=== PATIENT | female | born 1970 | race Caucasian/White ===

== ENCOUNTER → 2017-08-20 11:48 | Outpatient (CLI) | payer BC, SELFPAY ==
--- NOTE | 2017-08-20 | XR_ITS ---
XR knee LT 3V COMPARISON: None HISTORY: Left knee pain TECHNIQUE: AP lateral and oblique views FINDINGS: The medial lateral joint space appear normal. There is very minor spurring of the medial femoral condyle and medial tibial plateau. There is mild narrowing of the patellofemoral space. There is no definite fracture or loose body and is no definite effusion. IMPRESSION: Minor degenerative changes, no acute pathology noted
== END ==
PROVIDERS: PCP Internal Medicine Adolescent Medicine; Visit Provider Internal Medicine Adolescent Medicine
DX: M25.562 Pain in left knee (principal)
CPT/HCPCS: 73562

== ENCOUNTER 2017-09-13 16:43 | Outpatient (RCR) | payer BC, SELFPAY | END 2017-09-13 16:44 | disposition home or self-care (01) | LOC: PT 16:43 | PROVIDERS: Family Provider Internal Medicine; PCP Internal Medicine Adolescent Medicine; Visit Provider Orthopaedic Surgery | DX: M25.562 Pain in left knee (principal) | CPT/HCPCS: 97163 ==

== ENCOUNTER → 2019-01-28 15:13 | Outpatient (CLI) | payer BC, SELFPAY | PROVIDERS: PCP Nurse Practitioner Family; Visit Provider Nurse Practitioner Family | DX: G47.33 Obstructive sleep apnea (adult) (pediatric) (principal); R40.0 Somnolence; E11.9 Type 2 diabetes mellitus without complications | CPT/HCPCS: 95806 ==

== ENCOUNTER 2019-08-05 17:17 | Emergency (ER) | payer BC, SELFPAY ==
[2019-08-05 17:17] VITALS: BP 121/78; PULSE 81; RESP 24; TEMP 36.7; O2SAT 94; BMI 62.1
--- NOTE | 2019-08-05 17:29 | XR_ITS ---
PROCEDURE: XR CHEST 2V CLINICAL HISTORY: SOB COMPARISON: CXR1 CHEST-PORTABLE from 05/16/2013 FINDINGS: Borderline cardiomegaly without failure. Lungs are clear bilaterally. The lungs are clear without infiltrates, suspicious nodules, or pleural effusions. Hypertrophic changes are present at the distal clavicle on both sides with spurring superiorly. Degenerative changes thoracic spine IMPRESSION: Mild cardiomegaly Dictated by: Zane Blandon MD 08/05/2019 17:53 Electronically signed by Zane Blandon MD in [place] 08/05/2019 17:53
--- NOTE | 2019-08-05 18:17 | HMH.EDUTC ---
[facility] [place] Disposition Clinical Impression: Acute bronchitis Qualifiers: Bronchitis organism: unspecified organism Qualified Code(s): J20.9 - Acute bronchitis, unspecified Disposition: Home, Self-Care Condition on Discharge: Good Instructions: Acute Bronchitis, Cough, DI for Cough -- Adult, DI for Acute Bronchitis, Albuterol Oral Inhalation Additional Instructions: ? Start antibiotic today. Be sure to complete entire prescription even if feeling better ? Monitor temp. Tylenol every 4 hours as needed and / or ibuprofen every 6 hours as needed ( As long as your primary care physician has told you that it ok to take both. For fever/aches/pains ER if no less than 101 despite Tylenol or Motrin ? Humidifier/vaporizer or hot steamy shower ? Inhaler every 4-6 hours as needed like we discussed. If unsure how to use it, ask pharmacist to demonstrate how. Should help open airways and improve cough, wheezing, and shortness of breath ?Start steroid Tomorrow. Helps with inflammation therefore, cough and wheezing. Follow directions on the package. Reviewed side effects. Patient reports taking them before. You was tested for COVID19 today due to your symptoms, stay self quarantined as advised until they call you with your results and they are negative You was given a card with COVID19 instructions please follow them as advised Follow up IMMEDIATELY for new or worsening of symptoms OR no noticeable improvement over the next 48-72 hours. 911 immediately for any life threatening symptoms such as chest pain or difficulty breathing Prescriptions: predniSONE [Deltasone 10mg tablet] 10 mg PO BID 5 Days #10 tab Transmission Status: Received by [id number] Azithromycin [Z-West 250mg Tab] 250 mg PO DIRECTED #6 tab Transmission Status: Received by [id number] Referrals: Opal Michel APRN [Primary Care Provider] - As needed Time of Disposition: 18:30 Medical Decision Making - Wilfrid Inquiry Pt receiving controlled substance: No Wilfrid was queried for this patient: No Vital Signs: 08/05/19 17:17 08/05/19 18:25 Temperature 98.1 F Temperature Source Oral Pulse Rate [Radial] 81 Respiratory Rate 24 Blood Pressure [Right Arm] 121/78 Blood Pressure Mean [Right Arm] 92 Blood Pressure Source [Right Arm] Automatic Cuff Blood Pressure Position [Right Arm] Sitting 02 Sat by Pulse Oximetry 94 L 98 Oxygen Delivery Method Room Air Room Air Orders (Tests/Meds): ED MEDICATIONS Discontinued Medications Generic Name Dose Route Start Last Admin Trade Name Soha PRN Reason Stop Dose Admin Albuterol Sulfate 2 puffs 08/05/19 18:31 08/05/19 18:33 Proventil-Hfa 90mcg/Puff Inhaler IH 08/05/19 18:32 1 device ONCE ONE Administration Methylprednisolone Sodium Succinate 125 mg 08/05/19 18:21 08/05/19 18:26 Solu-Medrol 125mg/2ml Vial IM 08/05/19 18:22 125 mg ONCE ONE Administration Miscellaneous 1 unit 08/05/19 18:30 08/05/19 18:32 Aerochamber/Optihaler MC 08/05/19 18:31 1 unit ONCE ONE Administration ORDERS Category Date Time Status SARS-CoV-2, LAURA Stat Lab 08/05/19 18:32 Received - Radiology Data #1 Image(s): Chest Image Reviewed: Yes I have reviewed radiologist's interpretation Mild cardiomegaly - Reevaluation(s) Time: 18:00 Reevaluation #1: Discussed transfer to ED for further evaluation and work up and patient declined at this time Time: 18:46 Reevaluation #3: Patient states that she is feeling much better and no longer feeling short of breath patient tested for COVID19 due to complaints of similar symptoms and will follow up with PCP or return to ER if any life threatening symptoms [facility] [place] HPI - General Stated complaint: SOB.VOGEL Time Seen by Provider: 08/05/19 17:20 Mode of Arrival: Ambulatory Source of Information: Patient Limitations: No Limitations Description of Symptoms (Recalled from Triage Doc. by RN): can't catch her breath, everything hurts, tired H
[2019-08-05 18:25] VITALS: O2SAT 98
[2019-08-05 18:51] VITALS: BP 121/78; PULSE 81; RESP 24; TEMP 36.7; O2SAT 98
[2019-08-07 14:13] LABS: Covid-19 Nasal PCR Sendout Lex NOT DETECTED
--- NOTE | 2019-08-07 14:36 | PC.NURSE ---
notified pt and Radha NEALN of negative COVID 19 results.
== END 2019-08-05 18:53 | disposition home or self-care (01) ==
PROVIDERS: Emergency Provider Nurse Practitioner; PCP Nurse Practitioner Family
DX: J20.9 Acute bronchitis, unspecified (principal); J45.909 Unspecified asthma, uncomplicated; F41.8 Other specified anxiety disorders; I10 Essential (primary) hypertension; Z90.09 Acquired absence of other part of head and neck
CPT/HCPCS: 71046; 96372; 99202; U0004

== ENCOUNTER 2019-08-23 14:51 | Emergency (ER) | payer BC, SELFPAY ==
[2019-08-23 14:53] VITALS: BP 112/78; PULSE 78; RESP 19; TEMP 36.8; O2SAT 99; BMI 41.3
--- NOTE | 2019-08-23 15:11 | XR_ITS ---
PROCEDURE: XR HAND LT MIN 3V CLINICAL INDICATION: INJURED HAND WHILE MOVING A COUCH Posttraumatic pain COMPARISON: No exams were available for comparison FINDINGS: Metallic artifact is present over the proximal phalanx of the 4th finger consistent with the patient's rings which could not be removed. There are hypertrophic changes at the base of the 1st metacarpal and there is an extra bony density medial to the base of the 1st metacarpal. This may only be related to bony spurring. Cannot exclude the possibility of an avulsion fracture at this area. CT may provide further evaluation if clinical findings are indeterminate. There is mild lateral subluxation at the base of the 1st metacarpal. No other significant anomalies are evident. IMPRESSION: Degenerative changes at the base of the 1st metacarpal with extra bony density medial to the 1st metacarpal which may be related to a prominent spur or an avulsion fracture. This may be better evaluated with CT if clinical findings point to this region. There is mild lateral subluxation of the 1st metacarpal. Dictated by: Zane Blandon MD 08/23/2019 16:09 Electronically signed by Zane Blandon MD in [place] 08/23/2019 16:09
--- NOTE | 2019-08-23 15:42 | HMH.EDUTC ---
[facility] [place] Disposition Clinical Impression: Sinusitis Qualifiers: Sinusitis location: unspecified location Chronicity: unspecified Qualified Code(s): J32.9 - Chronic sinusitis, unspecified Hand sprain Qualifiers: Encounter type: initial encounter Laterality: left Qualified Code(s): S63.92XA - Sprain of unspecified part of left wrist and hand, initial encounter Disposition: Home, Self-Care Condition on Discharge: Good Instructions: Sprain, Sinusitis, Sinus Headache, DI for Sinusitis, How To Perform RICE (Rest, Ice, Compress, Elevate), DI for Hand Pain Additional Instructions: *Monitor Temp, Over the counter Motrin or Tylenol as directed/as needed Tylenol every 4 hours and Motrin every 6 hours (as long as your family doctor has told you that you can take it) for fever or pain. and straight to ER if unable to lower temp less than 101.0 after medication given *Warm salt water gargles may help to soothe the throat *Throat Lozenges *Warm fluids *Sleep elevated *Humidifier/Vaporizer Start antibiotic. Sinus infections may take 2-3 days to notice much improvement so be sure to use conservative measures as discussed for symptoms Ok to continue Sudafed Humidifer/vaporizer Augmentin can cause GI effects. Probiotics may help to prevent these symptoms Follow up with family doctor if no improvement or any worsening of symptoms Follow up IMMEDIATELY for new or worsening symptoms or no Noticeable improvement over the next 48-72 hours. 911 for difficulty breathing or swallowing Prescriptions: Amoxicillin/Potassium Clav [Augmentin 875-125 Tablet] 1 tab PO Q12H 7 Days #14 tab Transmission Status: Received by [id number] predniSONE [Prednisone 20mg Tab] 20 mg PO BID 5 Days #10 tab Transmission Status: Received by [id number] Referrals: Robert Cain MD [Primary Care Provider] - As needed Time of Disposition: 15:48 Medical Decision Making - Wilfrid Inquiry Pt receiving controlled substance: No Wilfrid was queried for this patient: No Vital Signs: 08/23/19 14:53 08/23/19 15:57 Temperature 98.2 F 98.2 F Temperature Source Oral Oral Pulse Rate 78 Pulse Rate [Radial] 78 Respiratory Rate 19 19 Blood Pressure 112/78 Blood Pressure [Right Arm] 112/78 Blood Pressure Mean [Right Arm] 89 Blood Pressure Source Automatic Cuff Blood Pressure Source [Right Arm] Automatic Cuff Blood Pressure Position Sitting Blood Pressure Position [Right Arm] Sitting 02 Sat by Pulse Oximetry 99 Oxygen Delivery Method Room Air Room Air - Radiology Data #1 Image(s): Hand Image Reviewed: Yes I reviewed the patient's radiology image Preliminary Findings: No Fracture Seen [facility] [place] HPI - General Stated complaint: hand bron Time Seen by Provider: 08/23/19 15:42 Mode of Arrival: Ambulatory Source of Information: Patient Limitations: No Limitations Description of Symptoms (Recalled from Triage Doc. by RN): GETS DIZZY WHEN SHE COUGHS HARD, HEADACHE, CHEST SORENESS FROM COUGHING, SHOTNESS OF AIR, THINKS SHE BROKE HER LEFT HAND HEENT Symptoms (Recalled from RN notes): Yes Resp Symptoms (Recalled from RN notes): Yes Skin Symptoms (Recalled from RN notes): No MS Symptoms (Recalled from RN notes): No Functional Status (Recalled from RN notes): WNL - History of Present Illness Provider Complaint: Patient state that she is having sinus pain and pressure along with drainge in the back of her throat States that it is worse when she lays down and it makes her cough States that she coughed so much it made her throat irritated and when she has a coughing fit she feels SOB States that she has been using her inhaler and it does help with the coughing States that her sinuses feels full and causing sinus pressure and headache States that also she thinks she broke her left hand while moving furniture State that she felt something pop - Related Data Home Medications Medication Instructions Recorded Confirmed furosemide 40 mg tablet P
[2019-08-23 15:57] VITALS: BP 112/78; PULSE 78; RESP 19; TEMP 36.8; O2SAT 99
== END 2019-08-23 16:06 | disposition home or self-care (01) ==
PROVIDERS: Emergency Provider Nurse Practitioner; PCP Internal Medicine Adolescent Medicine
DX: J32.9 Chronic sinusitis, unspecified (principal); S63.92XA Sprain of unspecified part of left wrist and hand, initial encounter; X50.0XXA Overexertion from strenuous movement or load, initial encounter; Y92.019 Unspecified place in single-family (private) house as the place of occurrence of the external cause; F41.8 Other specified anxiety disorders; E03.9 Hypothyroidism, unspecified; I10 Essential (primary) hypertension; Z90.49 Acquired absence of other specified parts of digestive tract; J45.909 Unspecified asthma, uncomplicated; Z90.09 Acquired absence of other part of head and neck
CPT/HCPCS: 29125; 73130; 99202

== ENCOUNTER 2019-10-26 12:58 | Emergency (ER) | payer BC, SELFPAY ==
[2019-10-26 13:14] VITALS: BP 129/92; PULSE 112; RESP 19; TEMP 36.8; O2SAT 99; BMI 62.8
--- NOTE | 2019-10-26 13:21 | HMH.EDUTC ---
[facility] [place] Disposition Clinical Impression: Otitis media Qualifiers: Otitis media type: suppurative Chronicity: acute Laterality: left Recurrence: non-recurrent Spontaneous tympanic membrane rupture: without spontaneous rupture Qualified Code(s): H66.002 - Acute suppurative otitis media without spontaneous rupture of ear drum, left ear Disposition: Home, Self-Care Condition on Discharge: Good Instructions: Middle Ear Infection Additional Instructions: Start antibiotic as soon as possible and be sure to take as ordered for full length of time even though he should start feeling better in 24-48 hours. Tylenol or Motrin as needed for pain or fever Encourage fluids, water, Gatorade, Powerade, Pedialyte if /toddler/child Warm compresses often helps when placed over ear Return immediately for new or worsening symptoms no noticeable improvement in 48-72 hours and in 10-14 days to ensure the ears are return to baseline. Follow-up with primary care Prescriptions: predniSONE [Prednisone 20mg Tab] 20 mg PO BID #10 tab Prescription Printed Referrals: Opal Michel APRN [Primary Care Provider] - Time of Disposition: 13:39 Medical Decision Making - Wilfrid Inquiry Pt receiving controlled substance: No Vital Signs: 10/26/19 13:14 Temperature 98.2 F Temperature Source Oral Pulse Rate [Right Brachial] 112 H Respiratory Rate 19 Blood Pressure [Right Arm] 129/92 H Blood Pressure Mean [Right Arm] 104 Blood Pressure Source [Right Arm] Automatic Cuff Blood Pressure Position [Right Arm] Sitting 02 Sat by Pulse Oximetry 99 Oxygen Delivery Method Room Air [facility] [place] HPI - General Chief complaint: Ear Stated complaint: ear pain, and dizzy Time Seen by Provider: 10/26/19 13:21 Mode of Arrival: Ambulatory Source of Information: Patient Limitations: No Limitations Description of Symptoms (Recalled from Triage Doc. by RN): PATIENT STATES SHE HAS A POSSIBLE SINUS OR EAR INFECTION, C/O DIZZINESS UPON STANDING X 2 DAYS HEENT Symptoms (Recalled from RN notes): Yes Resp Symptoms (Recalled from RN notes): No Skin Symptoms (Recalled from RN notes): No MS Symptoms (Recalled from RN notes): No Functional Status (Recalled from RN notes): WNL - History of Present Illness Provider Complaint: 48 yr old female presnets for luis eduardo ear pain with fullness and dizzy. pt states the last time she had this she had a inter ear infection - Related Data Home Medications Medication Instructions Recorded Confirmed furosemide 40 mg tablet PO 90 Days #90 06/05/17 03/24/19 gabapentin 300 mg capsule PO 30 Days #90 06/05/17 03/24/19 ropinirole 0.5 mg tablet PO 90 Days #90 06/05/17 03/24/19 tizanidine 4 mg capsule 4 mg PO Q8H 06/05/17 03/24/19 diclofenac sodium 75 mg 75 mg PO BID 10/01/17 03/24/19 tablet,delayed release bisoprolol 5 2 tab PO DAILY tab 03/24/19 03/24/19 mg-hydrochlorothiazide 6.25 mg tablet bupropion HCl 300 mg 24 hr tablet, 300 mg PO DAILY tab 03/24/19 03/24/19 extended release duloxetine 60 mg capsule,delayed 60 mg PO DAILY cap 03/24/19 03/24/19 release levothyroxine 50 mcg tablet 50 mcg PO DAILY tab 03/24/19 03/24/19 Previous Rx's Medication Instructions Recorded Albuterol Sulfate [Albuterol HFA 2 puffs IH Q6HP PRN #1 inh 06/27/17 Inhaler] Azithromycin [Zithromax 250mg 250 mg PO DIRECTED #6 tab 03/29/19 tab] predniSONE [Prednisone 20mg 20 mg PO BID #10 tab 03/29/19 Tab] Azithromycin [Z-West 250mg Tab] 250 mg PO DIRECTED #6 tab 08/05/19 predniSONE [Deltasone 10mg tablet] 10 mg PO BID 5 Days #10 tab 08/05/19 Amoxicillin/Potassium Clav 1 tab PO Q12H 7 Days #14 tab 08/23/19 [Augmentin 875-125 Tablet] predniSONE [Prednisone 20mg 20 mg PO BID 5 Days #10 tab 08/23/19 Tab] predniSONE [Prednisone 20mg 20 mg PO BID #10 tab 10/26/19 Tab] Allergies Allergy/AdvReac Type Severity Reaction Status Date / Time No Known Allergies Allergy Verified 03/24/19 15:36
[2019-10-26 13:46] VITALS: BP 129/92; PULSE 112; RESP 19; TEMP 36.8; O2SAT 99
== END 2019-10-26 13:47 | disposition home or self-care (01) ==
PROVIDERS: Emergency Provider Nurse Practitioner Family; PCP Nurse Practitioner Family
DX: H66.002 Acute suppurative otitis media without spontaneous rupture of ear drum, left ear (principal); F41.8 Other specified anxiety disorders; I10 Essential (primary) hypertension; J45.909 Unspecified asthma, uncomplicated; Z90.09 Acquired absence of other part of head and neck; Z90.49 Acquired absence of other specified parts of digestive tract
CPT/HCPCS: 99201

== ENCOUNTER 2019-12-06 16:33 | Emergency (ER) | payer BC, SELFPAY ==
[2019-12-06 16:34] VITALS: BP 136/86; PULSE 105; RESP 18; TEMP 36.6; O2SAT 98; BMI 62.9
--- NOTE | 2019-12-06 16:42 | PC.NURSE ---
PATIENT HERE TO BE SEEN POST-FALL WITH DIZZINESS AND LIGHT-HEADEDNESS. STATES SHE BLACKED OUT BEFORE FALLING AND DOESN'T REMEMBER WHAT HAPENED. PATIENT WENT TO STAND FROM WHEELCHAIR IN [facility] WAITING ROOM AND ALMOST FELL X2 AFTER BECOMING LIGHT-HEADED AND DIZZY. GIGI CARRASCO APRN SPOKE WITH PATIENT AND HER AT THIS TIME AND SENT HER TO ER. UNABLE TO COMPLETE TRIAGE. REPORT GIVEN TO Shawn MALDONADO RN
--- NOTE | 2019-12-06 17:02 | CT_ITS ---
PROCEDURE: CT CERVICAL SPINE WO CON Referring Doctor: Elvis Amaro Patient Age:48Y CLINICAL INDICATION: fall/LOC Neck pain COMPARISON: CR CXR1 CHEST-PORTABLE from 05/16/2013 CR XR CHEST 2V from 08/05/2019 CR XR CHEST PORTABLE from 12/06/2019 TECHNIQUE: . No IV contrast Helical axial images obtained from base of skull through C-spine and continuing to level of T5 axial. Of from the thin-section raw data-axial, sagittal and coronal reformats performed. All CT scans at the facility use one or more dose reduction, viz: automated exposure control, ma/kV adjustment per patient size (including targeted exams where dose is matched to indication, i.e. head), or iterative reconstruction technique. FINDINGS: Patient's large size somewhat decreases resolution and detail on this study; but no acute fracture nor subluxation is evident.. The nonspecific straightening of the cervical spine seen today most likely reflects positioning, although can be seen as reflection of pain, and muscle spasm related to recent trauma.. Vertebral bodies are intact and disc spaces well maintained throughout C-spine and visualized upper most T-spine. Mild degenerative facet changes bilaterally. Most evident on the left at C4/5 and C7/T1 with minimal degenerative facet changes on right at the mid C-spine. Neural foramen patent at all levels with no significant encroachment. C1-C2 relationships appear normal. A Don toilet intact. The patient's carotid arteries have a rather posterior/medial course passing towards the prevertebral space at the level the hyoid and accounting for the slightly generous prevertebral space in this patient. No edema or pathology here otherwise. A prominent parotid glands bilaterally noted.. Mild relative fullness inferior right thyroid gland noted with possible small nodule here. The patient is quite large with generous adipose the of throughout the neck and extending to the superior mediastinum. Minimal low-density ground-glass opacities visualized upper portion lung fuller bilaterally noted on CT but not apparent on today's portable CXR. I suspect this CT appearance may be reflection of atelectasis and hypoinflation. However there are respiratory symptoms of consider follow-up studies with more optimal inspiration. IMPRESSION: 1.Cervical Spine Intact With No Fracture Nor Subluxation. 2.Mild degenerative facet changes C-spine. Nonspecific straightening C-spine likely positional although can be reflect muscle spasm from recent injury. 3..Other observations and comments in text: . Low-density ground-glass opacities at the partially visualized upper lung fuller most likely reflection of hypoinflation and atelectasis on this study; however if there are respiratory symptoms a follow-up suggested. (Today's portable CXR appears stable) . The patient's large size does diminish resolution on today's CT cervical spine Dictated by: Kaz Irene MD 12/06/2019 18:02 Kaz Irene MD in [place] 12/06/2019 18:02
--- NOTE | 2019-12-06 17:02 | ECG_ITS ---
APPROVED REPORT Exam: Resting ECG HR:104 bpm ECG Measurements Heart Rate 104 AXES SC 136 P 52 QRSd 86 QRS 17 QT 332 T 11 QTc 436 <Conclusion> Sinus tachycardia Possible Left atrial enlargement Borderline ECG Electronically signed by : Robert Cain, 12/07/2019 14:59:08
--- NOTE | 2019-12-06 17:02 | CT_ITS ---
PROCEDURE: CT HEAD/BRAIN WO CON Referring Doctor: Elvis Amaro Patient Age:48Y CLINICAL INDICATION: fall/LOC hit head head trauma. Head pain. COMPARISON: CR XR CHEST 2V from 08/05/2019 CR XR CHEST PORTABLE from 12/06/[address] CERVICAL SPINE WO CON from 12/06/2019 TECHNIQUE: No IV contrast. Standard axial images were obtained. All CT scans at the facility use one or more dose reduction, viz: automated exposure control, ma/kV adjustment per patient size (including targeted exams where dose is matched to indication, i.e. head), or iterative reconstruction technique. FINDINGS: No acute intracranial findings. No intracranial hemorrhage. No hydrocephalus.The ventricles and basal cisterns appear clear and satisfactory. No mass or midline shift nor mass effect. No subdural or extra-axial fluid collection is evident. Posterior fossa unremarkable. Skull intact- calvarium unremarkable appearance.. No obvious scalp hematoma Nomastoid effusions. Mastoid air cells are well developed and clear.Middle ear clear. IAC's symmetric. Nosinus air-fluid level. Visualized portions of the paranasal sinuses unremarkable . More generous right lacrimal gland incidentally noted-nonspecific. IMPRESSION: NO ACUTE INTRACRANIAL FINDINGS . Skull intact . Slight generous right lacrimal gland incidentally noted-Nonspecific Dictated by: Kaz Irene MD 12/06/2019 17:45 Kaz Irene MD in [place] 12/06/2019 17:45
--- NOTE | 2019-12-06 17:02 | XR_ITS ---
PROCEDURE: XR CHEST PORTABLE Referring Doctor: Elvis Amaro Patient Age:48Y CLINICAL HISTORY: LOC Fall head and neck injury. COMPARISON: CR CXR1 CHEST-PORTABLE from 05/16/2013 CR XR CHEST 2V from 08/05/2019 FINDINGS: AP portable supine CXR with quite lordotic projection performed today. No significant change when compared to July 2019 CXR. The lungs appear clear with mild chronic changes. Small stable 5 mm granuloma at left mid lung unchanged since 2013 t. Borderline cardiomegaly similar to previous study. With normal pulmonary vascularity. Gala and mediastinal structures unchanged. No pleural effusion or pneumothorax. No obvious rib fractures. No acute bony abnormalities. Large patient size diminishes resolution of image .. IMPRESSION: Nothing definitely acute. Stable chest since 2013, 2019 comparison studies. Borderline/mild cardiomegaly again observed Dictated by: Kaz Irene MD 12/06/2019 19:00 Kaz Irene MD in [place] 12/06/2019 19:00
--- NOTE | 2019-12-06 17:03 | XR_ITS ---
PROCEDURE: XR KNEE LT 3V Referring Doctor: Elvis Amaro Patient Age:48Y CLINICAL INDICATION: fall/pain Left knee pain COMPARISON: CR [id number] XR knee LT 3V from 08/20/2017 FINDINGS: Left knee 3 view nonweightbearing. AP lateral oblique Degenerative changes with progressive and notable narrowing at the medial compartment since 2018 on today's nonweightbearing film. No definitive acute fracture or dislocation. Although initially question some slight irregularities at the medial margin tibial plateau and marginal osteophyte here but on further inspection is most likely intact.. Mild to moderate tricompartmental marginal osteophytes about the knee the reflecting degenerative changes have progressed since 2018.. Suspect some early joint space narrowing at patellofemoral joint as well. Also suspect a small/moderate joint effusion suprapatellar bursa-. No lytic or blastic change. Adequate mineralization. . . IMPRESSION: Progressive degenerative changes of the left knee since 2018. No acute fracture or dislocation at the left knee. Small/moderate joint effusion suspect Dictated by: Kaz Irene MD 12/06/2019 18:40 Kaz Irene MD in [place] 12/06/2019 18:40
--- NOTE | 2019-12-06 17:03 | XR_ITS ---
PROCEDURE: XR ELBOW LT MIN 3V CLINICAL INDICATION: fall/pain COMPARISON: No exams were available for comparison FINDINGS: There is a small triangular-shaped chip fracture of the ulnar side of the olecranon. The radial head appears intact. Distal humerus and supracondylar humerus appear intact. There is a focal area of soft tissue contusion lateral aspect of the distal arm lateral to the lateral humeral condyle. There are no foreign bodies. IMPRESSION: Chip fracture of the olecranon ulnar side Dictated by: Dr. Silvestre Clement MD 12/07/2019 08:06 Dr. Silvestre Clement MD in [place] 12/07/2019 08:06
--- NOTE | 2019-12-06 17:04 | HMH.EDGENADL ---
ED Disposition Clinical Impression: Syncope and collapse, Dehydration Disposition: Home, Self-Care Condition on Discharge: Fair Prescriptions: Cyclobenzaprine HCl [Cyclobenzaprine 5mg Tab] 5 mg PO Q8HP PRN #30 tab PRN Reason: pain/spasm Transmission Status: Pending to [id number] Referrals: Opal Michel APRN [Primary Care Provider] - - Critical Care Critical Care Time: No Attestation: On 12/06/19, the high probability of a clinically significant, sudden or life threatening deterioration of the following system(s) required my full and direct attention, intervention and personal management. The time I documented below is in addition to time spent performing reported procedures but includes the following listed in this critical care notation. Medical Decision Making - Wilfrid Inquiry Pt receiving controlled substance: No Vital Signs: 12/06/19 16:34 12/06/19 18:14 Temperature 98 F Temperature Source Oral Pulse Rate [Left Radial] 105 H 99 H Respiratory Rate 18 18 Blood Pressure [Right Arm] 136/86 122/85 Blood Pressure Mean [Right Arm] 102 97 Blood Pressure Source [Right Arm] Automatic Cuff Blood Pressure Position [Right Arm] Sitting Supine 02 Sat by Pulse Oximetry 98 100 Oxygen Delivery Method Room Air Room Air - Lab Data Lab Results 12/06/19 17:05: WBC 20.8 H*, RBC 4.54, Hgb 14.7, Hct 42.7, MCV 94.0, MCH 32.3 H, MCHC 34.4, RDW 14.6, Plt Count 302, MPV 8.6, Neut % (Auto) 69.6, Lymph % (Auto) 25.2, [place] % (Auto) 3.9, Eos % (Auto) 0.9, Baso % (Auto) 0.4, Neut # (Auto) 14.5 H, Lymph # (Auto) 5.2 H, [place] # (Auto) 0.8, Eos # (Auto) 0.2, Baso # (Auto) 0.1, Total Counted 100, Neutrophils % (Manual) 72, Lymphocytes % (Manual) 24, Monocytes % (Manual) 3, Eosinophils % (Manual) 1, Platelet Estimate Normal, RBC Morphology Normal 12/06/19 17:05: Sodium 132 L, Potassium 3.6, Chloride 93 L, Carbon Dioxide 28, Anion Gap 14.6, BUN 57 H, Creatinine 1.90 H, Estimated Creat Clear 34, Estimated GFR 28 L, Est GFR ( Amer) 34 L, Glucose 224 H, Calcium 9.6, Total Bilirubin 0.6, AST 44 H, ALT 65, Alkaline Phosphatase 132 H, Troponin I 0.05 H, NT-Pro-B Natriuret Pep 581 H, Total Protein 6.6, Albumin 3.7, Globulin 2.9, Albumin/Globulin Ratio 1.3 Result diagrams: 12/06/19 17:05 12/06/19 17:05 Orders (Tests/Meds): ED MEDICATIONS Generic Name Dose Route Start Last Admin Trade Name Freq PRN Reason Stop Dose Admin Sodium Chloride 1,000 mls @ 999 mls/hr 12/06/19 18:00 12/06/19 17:55 Sod Chlor 0.9% 1000ml Bag IV 12/06/19 19:00 999 mls/hr .Q1H1M ELKIN Administration Discontinued Medications Generic Name Dose Route Start Last Admin Trade Name Freq PRN Reason Stop Dose Admin Ketorolac Tromethamine 30 mg 12/06/19 17:44 12/06/19 17:55 Toradol 30mg/Ml Vial IV 12/06/19 17:45 30 mg ONCE ONE Administration Orphenadrine Citrate 60 mg 12/06/19 17:44 12/06/19 17:55 Norflex 60mg/2ml Vial IV 12/06/19 17:45 60 mg ONCE ONE Administration ORDERS Category Date Time Status Elbow XR left mininum 3 views [XR elbow LT min 3V] Stat Exams 12/06/19 17:03 Taken XR chest portable Stat Exams 12/06/19 17:02 Taken XR knee LT 3V Stat Exams 12/06/19 17:03 Taken Troponin I Q3H Lab 12/06/19 20:15 Ordered Troponin I Q3H Lab 12/06/19 23:15 Ordered - Radiology Data #1 Image(s): Chest Image Reviewed: Yes I reviewed the patient's radiology image Preliminary Findings: Normal/NAD #2 Image(s): Elbow Image Reviewed: Yes I reviewed the patient's radiology image Preliminary Findings: Normal/NAD #3 Image(s): Knee Image Reviewed: Yes I reviewed the patient's radiology image Preliminary Findings: Normal/NAD - CT Data CT Scan: Head, C-Spine Time Received: 16:[address] Reviewed: Yes: I have reviewed the patient's CT results, I have viewed the radiologist's interpretation Preliminary Findings: Normal/NAD - ECG Data Tracing #1 Normal Sinus Rhythm: No (HR 104bpm) Ar
[2019-12-06 17:20] LABS: Basophils # 0.1 K/mm3 (0-0.2); Basophils % 0.4 % (0.1-2.0); Eosinophils # 0.2 K/mm3 (0.0-0.4); Eosinophils % 0.9 % (0.1-12.0); Hematocrit 42.7 % (37.0-47.0); Hemoglobin 14.7 g/dL (12.2-16.2); Lymphocytes # 5.2 K/mm3 (0.7-4.5); Lymphocytes % 25.2 % (10-50); Mean Corpuscular HGB Conc 34.4 g/dL (31.8-35.4); Mean Corpuscular Hemoglobin 32.3 pg (27.0-31.2); Mean Platelet Volume 8.6 fl (7.4-10.4); Monocytes # 0.8 K/mm3 (0.1-1.0); Monocytes % 3.9 % (1.7-9.3); Neutrophils # 14.5 K/mm3 (1.8-7.8); Neutrophils % 69.6 % (37.0-80.0); Platelet Count 302 K/mm3 (142-424); Red Blood Count 4.54 M/mm3 (4.20-5.40); Red Cell Distribution Width 14.6 % (11.5-17.5); White Blood Count 20.8 K/mm3 (4.8-10.8)
[2019-12-06 17:22] LABS: Chloride 93 mmol/L (98-107); Potassium 3.6 mmoL/L (3.5-5.1); Sodium 132 mmol/L (136-145)
[2019-12-06 17:24] LABS: Alanine Aminotransferase 65 U/L (12-78); Aspartate Amino Transferase 44 U/L (14-36); Blood Urea Nitrogen 57 mg/dl (7-17); Creatinine Clearance Estimated 34 mL/min (50-200); Estimated Glomerular Filt Rate 28 ml/min (>60); GFR (African American) 34 ML/MIN (>60); MANUAL DIFFERENTIAL MANUAL DIFFERENTIAL (MANUAL DIFF)
[2019-12-06 17:25] LABS: Albumin Level 3.7 g/dl (3.5-5.0); Albumin/Globulin Ratio 1.3 (1.1-1.8); Alkaline Phosphatase 132 U/L (38-126); Anion Gap 14.6 mEq/L (5-15); Bilirubin,Total 0.6 mg/dl (0.2-1.3); Calcium 9.6 mg/dl (8.4-10.2); Carbon Dioxide 28 mmol/L (22.0-30.0); Globulin 2.9 g/dL (1.3-3.2); Glucose 224 mg/dl (74-100); Total Protein,Serum 6.6 g/dl (6.3-8.2)
[2019-12-06 17:32] LABS: Eosinophils % 1 % (0-3); Lymphocytes % 24 % (10-50); Monocytes % 3 % (2-9); Neutrophils % 72 % (42-76); Platelet Estimate Normal; RBC Morphology Normal; Total Cells Counted 100
[2019-12-06 17:34] LABS: NT Pro Brain Natriuretic Pep. 581 pg/mL (0-125)
[2019-12-06 17:37] LABS: Troponin I 0.05 ng/ml (0.00-0.034)
[2019-12-06 18:14] VITALS: BP 122/85; PULSE 99; RESP 18; O2SAT 100
--- NOTE | 2019-12-06 18:24 | PC.NURSE ---
PT CONTINUES TO C/O PAIN MD AWARE
[2019-12-06 18:36] VITALS: BP 137/83; PULSE 102; RESP 22; O2SAT 100
[2019-12-06 18:55] VITALS: BP 137/63; PULSE 100; RESP 17; TEMP 36.8; O2SAT 100
== END 2019-12-06 19:14 | disposition home or self-care (01) ==
LOC: UTC 16:38 → ER 16:41
PROVIDERS: Emergency Provider Emergency Medicine; PCP Nurse Practitioner Family
DX: R55 Syncope and collapse (principal); E86.0 Dehydration; S50.02XA Contusion of left elbow, initial encounter; S00.511A Abrasion of lip, initial encounter; W18.39XA Other fall on same level, initial encounter; Y92.012 Bathroom of single-family (private) house as the place of occurrence of the external cause; F41.8 Other specified anxiety disorders; I10 Essential (primary) hypertension; Z79.899 Other long term (current) drug therapy; Z90.09 Acquired absence of other part of head and neck; Z90.49 Acquired absence of other specified parts of digestive tract
CPT/HCPCS: 70450; 71045; 72125; 73080; 73562; 80053; 83880; 84484; 85007; 85025; 93005; 96365; 96375; 99283; J2405

== ENCOUNTER 2019-12-13 19:25 | Emergency (ER) | payer BC, SELFPAY ==
[2019-12-13 19:25] VITALS: BP 145/93; PULSE 138; RESP 17; O2SAT 98; BMI 61.0
--- NOTE | 2019-12-13 19:52 | HMH.EDGENADL ---
ED Disposition Condition on Discharge: Good - Critical Care Critical Care Time: No <Javier Linares - Last Filed: 12/13/19 19:52> <Elvis Valdes - Last Filed: 12/13/19 22:21> Clinical Impression: Hyperglycemia, Renal insufficiency Chest pain Qualifiers: Chest pain type: unspecified Qualified Code(s): R07.9 - Chest pain, unspecified Disposition: Home, Self-Care Instructions: DI for Hyperglycemia -- Adult Additional Instructions: dec prednisone to 20 mg daily and see pcp this week and start metformin Prescriptions: Metformin HCl [Metformin HCl ER] 500 mg PO BID #30 tab.er.24h Transmission Status: Pending to [id number] Referrals: Opal Michel APRN [Primary Care Provider] - Attestation: On 12/13/19, the high probability of a clinically significant, sudden or life threatening deterioration of the following system(s) required my full and direct attention, intervention and personal management. The time I documented below is in addition to time spent performing reported procedures but includes the following listed in this critical care notation. Medical Decision Making - Medical Records Medical records reviewed: Yes: I reviewed the patient's medical records. MR Comment: 48-year-old female presents emergency department due to concern of high blood sugar and chest pain. She arrives the ED hemodynamically stable, she is afebrile but she is tachycardic. She is anxious on my exam. She does not appear toxic or septic. Will get labs including EKG and troponin and reassess. Handed off at shift change. - Wilfrid Inquiry Pt receiving controlled substance: No <Javier Linares - Last Filed: 12/13/19 19:52> - Lab Data Lab results reviewed: Yes: I reviewed the patient's lab results. Result diagrams: 12/13/19 19:45 12/13/19 19:45 - ECG Data Tracing #1 Normal Sinus Rhythm: Yes Arrhythmias present: sinus tach Ischemic changes: non-specific ST-T wave changes - Physician Consults Physician Consulted: ruth Reason -: Pt condition - JAYDON Score for Non-Stemi Age of Patient: 40-49 years old Heart Rate: 110-149 bpm Systolic Blood Pressure: 140-159 mmHg Serum Creatinine: 1.20-1.59 mg/dl CHF [place] Class: I-No CHF Other Risk Factors: None Non-Stemi Risk Score: 83 <Elvis Valdes S - Last Filed: 12/13/19 22:21> Vital Signs: 12/13/19 19:25 Pulse Rate [Right Radial] 138 H Respiratory Rate 17 Blood Pressure [Right Arm] 145/93 H Blood Pressure Mean [Right Arm] 110 Blood Pressure Source [Right Arm] Automatic Cuff Blood Pressure Position [Right Arm] Supine 02 Sat by Pulse Oximetry 98 Oxygen Delivery Method Room Air - Lab Data Lab Results 12/13/19 19:34: POC Glucose 560 H* 12/13/19 19:45: WBC 12.0 H, RBC 4.00 L, Hgb 13.2, Hct 40.4, MCV 100.9 H, MCH 33.0 H, MCHC 32.7, RDW 14.5, Plt Count 298, MPV 8.4, Neut % (Auto) 87.7 H, Lymph % (Auto) 8.6 L, [place] % (Auto) 3.4, Eos % (Auto) 0.1, Baso % (Auto) 0.3, Neut # (Auto) 10.5 H, Lymph # (Auto) 1.0, [place] # (Auto) 0.4, Eos # (Auto) 0.0, Baso # (Auto) 0.0, Total Counted 100, Neutrophils % (Manual) 82 H, Band Neutrophils % 5.0, Lymphocytes % (Manual) 10, Monocytes % (Manual) 3, Hypersegmented Neuts 1+, Platelet Estimate Normal, Macrocytosis 2+ 12/13/19 19:45: Sodium 131 L, Potassium 5.1, Chloride 100, Carbon Dioxide 20 L, Anion Gap 16.1 H, BUN 21 H, Creatinine 1.40 H, Estimated Creat Clear 48, Estimated GFR 40 L, Est GFR ( Amer) 49 L, Glucose 600 H*, Calcium 9.9, Total Bilirubin 0.5, AST 36, ALT 79 H, Alkaline Phosphatase 185 H, Troponin I < 0.01, Total Protein 6.7, Albumin 3.7, Globulin 3.0, Albumin/Globulin Ratio 1.2 12/13/19 19:45: Hemoglobin A1c 10.9 H 12/13/19 19:45: Acetone Level None detected 12/13/19 21:35: Urine Color Yellow, Urine Appearance Clear, Urine pH 6.0, Ur Specific [place] <= 1.005, Urine Protein Negative, Urine Glucose (UA) 3+, Urine Ketones Negative, Urine Blood Negative, Urine Nitrate Negative, Urine Bilirubin Negative, Urine Urobilin
[2019-12-13 19:55] LABS: POC Glucose,Bedside 560 (70-110)
--- NOTE | 2019-12-13 19:59 | ECG_ITS ---
APPROVED REPORT Exam: Resting ECG HR:140 bpm ECG Measurements Heart Rate 140 AXES KS 134 P 38 QRSd 82 QRS 34 QT 282 T 51 QTc 430 <Conclusion> Sinus tachycardia Otherwise normal ECG Electronically signed by : Trent Chavira, 12/16/2019 09:42:15
[2019-12-13 20:14] LABS: Basophils % 0.3 % (0.1-2.0); Eosinophils % 0.1 % (0.1-12.0); Hematocrit 40.4 % (37.0-47.0); Hemoglobin 13.2 g/dL (12.2-16.2); Lymphocytes % 8.6 % (10-50); Mean Corpuscular HGB Conc 32.7 g/dL (31.8-35.4); Mean Corpuscular Volume 100.9 fl (81-99); Mean Platelet Volume 8.4 fl (7.4-10.4); Monocytes # 0.4 K/mm3 (0.1-1.0); Monocytes % 3.4 % (1.7-9.3); Neutrophils # 10.5 K/mm3 (1.8-7.8); Neutrophils % 87.7 % (37.0-80.0); Platelet Count 298 K/mm3 (142-424); Red Cell Distribution Width 14.5 % (11.5-17.5)
[2019-12-13 20:17] LABS: MANUAL DIFFERENTIAL MANUAL DIFFERENTIAL (MANUAL DIFF)
[2019-12-13 20:21] LABS: Alanine Aminotransferase 79 U/L (12-78); Albumin Level 3.7 g/dl (3.5-5.0); Albumin/Globulin Ratio 1.2 (1.1-1.8); Alkaline Phosphatase 185 U/L (38-126); Anion Gap 16.1 mEq/L (5-15); Aspartate Amino Transferase 36 U/L (14-36); Bilirubin,Total 0.5 mg/dl (0.2-1.3); Blood Urea Nitrogen 21 mg/dl (7-17); Calcium 9.9 mg/dl (8.4-10.2); Carbon Dioxide 20 mmol/L (22.0-30.0); Chloride 100 mmol/L (98-107); Creatinine Clearance Estimated 48 mL/min (50-200); Estimated Glomerular Filt Rate 40 ml/min (>60); GFR (African American) 49 ML/MIN (>60); Potassium 5.1 mmoL/L (3.5-5.1); Sodium 131 mmol/L (136-145); Total Protein,Serum 6.7 g/dl (6.3-8.2)
--- NOTE | 2019-12-13 20:21 | XR_ITS ---
PROCEDURE: XR CHEST PORTABLE Referring Doctor: Elvis Valdes Patient Age:48Y CLINICAL HISTORY: shortness of breath past few days. Worse tonight. Nonsmoker. Large patient. COMPARISON: CR CXR1 CHEST-PORTABLE from 05/16/2013 CR XR CHEST 2V from 08/05/2019 CR XR CHEST PORTABLE from 12/06/2019 FINDINGS: AP portable upright chest performed. With comparison to above listed chest studies Today's study is slightly less well penetrated with pronounced lordotic projection; however the right lung appears stable and clear with no new or acute findings. No pneumothorax nor pleural effusion. At the left chest there may be an additional area of elevation of the hemidiaphragm or hiatal hernia accounting for gas bubble at the inferior retrocardiac region today, this feature is not evident previously. Otherwise the left lung appears clear with no acute findings. . Cardiomegaly although heart size may be further exaggerated by the patient's large size using with this AP portable lordotic projection.. Normal/Upper normal pulmonary vascularity.. ekg monitor tech leads are in place No acute bony abnormalities. IMPRESSION: No acute cardiopulmonary findings. Cardiomegaly-but with heart size likely exaggerated by the AP portable lordotic projection in this patient I would incidentally note what appears to be moderate size gastric bubble (less likely bowel loop) projected over the left base and inferior cardiac region on today's lordotic CXR. This appearance not seen previously-could reflect either focal eventration of diaphragm, or some form of developing hiatal hernia Dictated by: Kaz Irene MD 12/14/2019 14:39 Kaz Irene MD in [place] 12/14/2019 14:39
[2019-12-13 20:28] LABS: Hypersegmented Neutrophils 1+; Lymphocytes % 10 % (10-50); Macrocytosis 2+; Monocytes % 3 % (2-9); Neutrophils % 82 % (42-76); Platelet Estimate Normal; Total Cells Counted 100
[2019-12-13 20:29] LABS: Glucose 600 mg/dl (74-100)
--- NOTE | 2019-12-13 20:31 | PC.NURSE ---
critical glucose reported to
[2019-12-13 20:41] LABS: Troponin I < 0.01 ng/ml (0.00-0.034)
[2019-12-13 20:50] LABS: Acetone, Serum (Rapid) None Detected (None Detect)
[2019-12-13 21:03] LABS: Hemoglobin A1C 10.9 % (4.0-6.0)
[2019-12-13 21:35] LABS: Microscopic, Urine URINE MICROSCOPIC (MICROSCOPIC)
--- NOTE | 2019-12-13 21:55 | PC.NURSE ---
spoke with Alber from pharmacy for insulin dose. he recommended 15units SQ. wants 5 units at this time.
[2019-12-13 21:56] LABS: Appearance,Urine CLEAR (Clear); Bilirubin,Urine Negative (Negative); Blood, Urine Negative (Negative); Color,Urine YELLOW (Yellow); Glucose,Urine (UA) 3+ (Negative); Ketones,Urine Negative (Negative); Leukocyte Esterase,Urine Negative (Negative); Nitrate,Urine Negative (Negative); Protein,Urine Negative (Negative); Specific Gravity, Urine <= 1.005 (1.005-1.030); Urobilinogen,Urine 0.2 EU/dl (0.2)
[2019-12-13 21:58] LABS: WBC,Urine Occasional #/hpf (0-3)
--- NOTE | 2019-12-13 22:06 | PC.NURSE ---
speaking with Dr. Hills
[2019-12-13 22:36] VITALS: BP 130/80; PULSE 125; RESP 22; TEMP 36.4; O2SAT 97
== END 2019-12-13 22:39 | disposition home or self-care (01) ==
PROVIDERS: Emergency Medicine; Emergency Provider Emergency Medicine; PCP Nurse Practitioner Family
DX: N28.9 Disorder of kidney and ureter, unspecified (principal); R07.9 Chest pain, unspecified; I10 Essential (primary) hypertension; F41.8 Other specified anxiety disorders; J45.909 Unspecified asthma, uncomplicated; Z79.899 Other long term (current) drug therapy; Z90.49 Acquired absence of other specified parts of digestive tract
CPT/HCPCS: 71045; 80053; 81001; 82009; 82962; 83036; 84484; 85007; 85025; 93005; 96365; 96372; 96375; 99283

== ENCOUNTER → 2020-06-24 09:46 | Outpatient (POV) | payer BC, SELFPAY ==
[2020-06-24 10:39] VITALS: BP 120/74; PULSE 109; RESP 18; O2SAT 98; BMI 49.4
--- NOTE | 2020-06-24 12:31 | HMH.PMCON ---
Assessment and Plan (1) Painful diabetic neuropathy Status: Acute Category: Medical Code(s): E11.40 - Type 2 diabetes mellitus with diabetic neuropathy, unspecified - Assessment and plan all Dx Assessment and Plan for all problems:: We will schedule patient for psychological evaluation to determine if she is a candidate for a neurostimulator. I will follow-up with her afterwards reassess her symptoms at that time she has been instructed to call the office if she has any issues prior to her next appointment. Patient was seen by her artist's model recently and had improvement. Patient is asking for steroids today so that she can complete her daughters spring trip. Patient states that she wants to have her feet amputated because of the pain. I will give her one 5-day dose of steroids. I did educate her on the risks with her kidneys. Dr. Kang has reviewed this note and agrees with this plan of care. This note was dictated using voice recognition software and may contain errors or omissions HPI - Data of Consult Consult date: 06/24/20 Requesting Physician: Caron Andrews APRN Primary Care Provider: Robert Cain MD - Consult Narrative Reason for consult: Neuropathy History of present illness: Ms. Stout is a 49 year old female presents today for consultation regards to her bilateral lower extremity neuropathy. Patient I a 9 out of 10. She has diabetic neuropathy in bilateral lower extremities. Patient has some noted color changes and swelling. She is seen neurology with no success. She is currently gabapentin 100 mg 3 times daily and tramadol 50 mg 3 times daily she gets no relief from this she states. [facility] #[id number] reviewed. Patient had a acute kidney injury due to medications and was taken off many of her medications. Patient states that the only medicine that helps her pain is steroids. Patient's tried and failed Lyrica, Cymbalta, amitriptyline, Celebrex, meloxicam. Patient was given the opportunity to try TENS therapy in the office this did not help. Patient is quite tearful and emotional today stating that she feels she is begging for help but nobody is helping her. I discussed with her that there was nothing we could do today in regard to helping her pain. Patient and I discussed neuro stimulation I do believe this would benefit her. CC: Caron Andrews APRN [facility] History I have reviewed the patient's past medical history: Yes Medical History: Reports:: Anxiety, Asthma, Depression, Diabetes Mellitus Type 2, Hypertension Denies:: Cancer, Diabetes Mellitus Type 1, Internal Pacemaker, MRSA *Have you ever received a pneumonia vaccine?: No *Have you received a flu vaccine this season?: Yes Other Medical History: Reports: Thyroid Disease Laterality Cases: Bilateral: Tonsillectomy Other Surgeries: Yes: No Previous Surgery, Cholecystectomy. No: Pacemaker Amputation: No Fractures: No - *Social History Smoking Status: Never smoker Alcohol Intake: never Substance Use Type: denies use *Occupational Status:: previously employed Housing: house Household Members: spouse *Travel in the last 8 weeks: None - Psychiatric History Pschychiatric History:: Reports:: Anxiety, Depression Family Hx:: Unable to obtain Review of Systems - Review of Systems ROS General: no recent weight change, no fever, no sleep disturbances Respiratory: no cough, no shortness of air, no recurring pulmonary infections Cardiovascular/Peripheral Vascular: No chest pain, No palpitations, no edema, no shortness of breath. Gastrointestinal: no new onset incontinence, normal bowel movements reported Genitourinary: no new onset incontinence Musculoskeletal: Bilateral foot pain Psychiatric: normal mood/ affect Neurological: Noted color changes bilateral feet, [denies new onset balance issues] Meds Home Medications Medication Instructions Recorded Confirmed Type furosemide 40 mg tablet 40 mg PO BID 90 Da
== END ==
PROVIDERS: PCP Internal Medicine Adolescent Medicine; Visit Provider Clinical Nurse Specialist Family Health
DX: E11.40 Type 2 diabetes mellitus with diabetic neuropathy, unspecified (principal)
CPT/HCPCS: 99202; G0463

== ENCOUNTER 2020-07-11 12:38 | Observation (INO) | payer BC, SELFPAY ==
[2020-07-11] VITALS (12 sets, daily range): BP systolic 113–180; BP diastolic 60–118; PULSE 88–117; RESP 16–20; TEMP 36.6–36.9; O2SAT 93–100; BMI 49.0; BMI 50.9
--- NOTE | 2020-07-11 13:08 | HMH.EDGENADL ---
ED Disposition Clinical Impression: NAMRATA (acute kidney injury), Leg pain, bilateral Disposition: Admitted as Observation Condition on Discharge: Fair Referrals: Robert Cain MD [Primary Care Provider] - Time of Disposition: 16:03 - Critical Care Critical Care Time: No Attestation: On 07/11/20, the high probability of a clinically significant, sudden or life threatening deterioration of the following system(s) required my full and direct attention, intervention and personal management. The time I documented below is in addition to time spent performing reported procedures but includes the following listed in this critical care notation. Medical Decision Making - Medical Records Medical records reviewed: Yes: I reviewed the patient's medical records. - Wilfrid Inquiry Pt receiving controlled substance: Yes Wilfrid was queried for this patient: Yes Reference #:: [id number] Risks and benefits of using a controlled substance: were discussed with pt by me Vital Signs: 07/11/20 12:40 07/11/20 13:30 07/11/20 14:13 Temperature 98.4 F Temperature Source Oral Pulse Rate 102 H 96 H Pulse Rate [Left Radial] 117 H Respiratory Rate 20 Blood Pressure 180/118 H 129/88 Blood Pressure [Right Arm] 175/116 H Blood Pressure Mean [Right Arm] 135 Blood Pressure Source [Right Arm] Automatic Cuff Blood Pressure Position [Right Arm] Sitting 02 Sat by Pulse Oximetry 99 99 100 Oxygen Delivery Method Room Air 07/11/20 14:30 07/11/20 15:15 Temperature Temperature Source Pulse Rate 91 H 88 Pulse Rate [Left Radial] Respiratory Rate Blood Pressure 146/86 H 132/60 Blood Pressure [Right Arm] Blood Pressure Mean [Right Arm] Blood Pressure Source [Right Arm] Blood Pressure Position [Right Arm] 02 Sat by Pulse Oximetry 99 99 Oxygen Delivery Method - Lab Data Lab Results 07/11/20 12:58: WBC 15.3 H, RBC 5.07, Hgb 14.6, Hct 45.3, MCV 89.3, MCH 28.8, MCHC 32.2, RDW 13.6, Plt Count 355, MPV 7.8, Neut % (Auto) 76.6, Lymph % (Auto) 18.5, [place] % (Auto) 3.7, Eos % (Auto) 0.9, Baso % (Auto) 0.2, Neut # (Auto) 11.7 H, Lymph # (Auto) 2.8, [place] # (Auto) 0.6, Eos # (Auto) 0.1, Baso # (Auto) 0.0, Total Counted 100, Neutrophils % (Manual) 75, Lymphocytes % (Manual) 19, Monocytes % (Manual) 3, Eosinophils % (Manual) 3, Platelet Estimate Normal, RBC Morphology Normal 07/11/20 12:58: Sodium 140, Potassium 4.0, Chloride 107, Carbon Dioxide 23, Anion Gap 14.0, BUN 36 H, Creatinine 2.00 H, Estimated Creat Clear 33, Estimated GFR 26 L, Est GFR ( Amer) 32 L, Glucose 114 H, Calcium 10.0, Total Bilirubin 0.5, AST 25, ALT 28, Alkaline Phosphatase 120, Total Protein 7.4, Albumin 4.5, Globulin 2.9, Albumin/Globulin Ratio 1.6 07/11/20 12:58: Lactate 1.2 Result diagrams: 07/11/20 12:58 07/11/20 12:58 Orders (Tests/Meds): ED MEDICATIONS Discontinued Medications Generic Name Dose Route Start Last Admin Trade Name Freq PRN Reason Stop Dose Admin Sodium Chloride 1,000 mls @ 999 mls/hr 07/11/20 14:15 07/11/20 14:10 Sod Chlor 0.9% 1000ml Bag IV 07/11/20 15:15 999 mls/hr .Q1H1M ELKIN Administration Morphine Sulfate 4 mg 07/11/20 12:49 07/11/20 13:09 Morphine 4mg/Ml Syringe IV 07/11/20 12:50 4 mg ONCE ONE Administration Morphine Sulfate 4 mg 07/11/20 14:04 07/11/20 14:09 Morphine 4mg/Ml Syringe IV 07/11/20 14:05 4 mg ONCE ONE Administration Ondansetron HCl 4 mg 07/11/20 12:50 07/11/20 13:05 Ondansetron 4mg/2ml Vial IV 07/11/20 12:51 4 mg ONCE ONE Administration ORDERS Category Date Time Status UA [Urinalysis and Microscopic] Stat Lab 07/11/20 12:48 Ordered Medical Decision Narrative: In summary this is a 49-year-old female with history of diabetes and neuropathy presenting to the emergency department with extreme pain in both of her feet. Patient clinically stable on arrival. Vital signs within normal limits. She does not have history of lumbar back pa
[2020-07-11 13:19] LABS: Alanine Aminotransferase 28 U/L (12-78); Albumin Level 4.5 g/dl (3.5-5.0); Albumin/Globulin Ratio 1.6 (1.1-1.8); Alkaline Phosphatase 120 U/L (38-126); Aspartate Amino Transferase 25 U/L (14-36); Basophils % 0.2 % (0.1-2.0); Bilirubin,Total 0.5 mg/dl (0.2-1.3); Blood Urea Nitrogen 36 mg/dl (7-17); Carbon Dioxide 23 mmol/L (22.0-30.0); Chloride 107 mmol/L (98-107); Creatinine Clearance Estimated 33 mL/min (50-200); Eosinophils # 0.1 K/mm3 (0.0-0.4); Eosinophils % 0.9 % (0.1-12.0); Estimated Glomerular Filt Rate 26 ml/min (>60); GFR (African American) 32 ML/MIN (>60); Globulin 2.9 g/dL (1.3-3.2); Glucose 114 mg/dl (74-100); Hematocrit 45.3 % (37.0-47.0); Hemoglobin 14.6 g/dL (12.2-16.2); Lactic Acid 1.2 mmol/L (0.7-2.1); Lymphocytes # 2.8 K/mm3 (0.7-4.5); Lymphocytes % 18.5 % (10-50); Mean Corpuscular HGB Conc 32.2 g/dL (31.8-35.4); Mean Corpuscular Hemoglobin 28.8 pg (27.0-31.2); Mean Corpuscular Volume 89.3 fl (81-99); Mean Platelet Volume 7.8 fl (7.4-10.4); Monocytes # 0.6 K/mm3 (0.1-1.0); Monocytes % 3.7 % (1.7-9.3); Neutrophils # 11.7 K/mm3 (1.8-7.8); Neutrophils % 76.6 % (37.0-80.0); Platelet Count 355 K/mm3 (142-424); Red Blood Count 5.07 M/mm3 (4.20-5.40); Red Cell Distribution Width 13.6 % (11.5-17.5); Sodium 140 mmol/L (136-145); Total Protein,Serum 7.4 g/dl (6.3-8.2); White Blood Count 15.3 K/mm3 (4.8-10.8)
[2020-07-11 13:24] LABS: MANUAL DIFFERENTIAL MANUAL DIFFERENTIAL (MANUAL DIFF)
[2020-07-11 13:32] LABS: Eosinophils % 3 % (0-3); Lymphocytes % 19 % (10-50); Monocytes % 3 % (2-9); Neutrophils % 75 % (42-76); Platelet Estimate Normal; RBC Morphology Normal; Total Cells Counted 100
--- NOTE | 2020-07-11 13:39 | PC.NURSE ---
FAXED MEDICAL RECORD RELEASE TO [facility]PER[facility]OR [place] WITH PATIENT PERMISSION
--- NOTE | 2020-07-11 15:49 | PC.NURSE ---
lone lead lineman paged.
[2020-07-11 16:19] LABS: Adenovirus,PCR Not Detected (NotDetected); Bordetella Pertussis Not Detected (NotDetected); Chlamydophila Pneumoniae, PCR Not Detected (NotDetected); Coronavirus 19, PCR Not Detected (NotDetected); Coronavirus 229E Not Detected (NotDetected); Coronavirus NL63 Not Detected (NotDetected); Coronavirus OC43 Not Detected (NotDetected); Coronovirus HKU1,PCR Not Detected (NotDetected); Human Metapneumovirus Not Detected (NotDetected); Influenza A, PCR Not Detected (NotDetected); Influenza AH1, 2009 Not Detected (NotDetected); Influenza AH1, PCR Not Detected (NotDetected); Influenza AH3,PCR Not Detected (NotDetected); Influenza B, PCR Not Detected (NotDetected); Mycoplasma Pneumoniae, PCR Not Detected (NotDetected); Parainfluenza 1, PCR Not Detected (NotDetected); Parainfluenza 2, PCR Not Detected (NotDetected); Parainfluenza 3, PCR Not Detected (NotDetected); Parainfluenza 4, PCR Not Detected (NotDetected); Respiratory Syncytial Virus Not Detected (NotDetected); Rhinovirus/Enterovirus Not Detected (NotDetected)
--- NOTE | 2020-07-11 18:11 | PC.NURSE ---
Report called to Joan LAUREN by Danny LAUREN
--- NOTE | 2020-07-11 18:20 | PC.NURSE ---
pT ARRVED TO THE FLOOR AT THIS TIME.
[2020-07-12] VITALS: BP 133/74; PULSE 82; RESP 20; TEMP 36.9; O2SAT 96
--- NOTE | 2020-07-12 03:52 | PC.NURSE ---
No acute changes noted. Pt has c/o pain to BLE. Pt describes it as numbness with a feeling of lightening. Pedal pulses strong in bilateral feet. Capillary refill less than 3 sec. Pt has slept at intervals this shift. Lungs are CTA. BS active. NS @ 150 ml/hr. Will continue to monitor.
[2020-07-12 04:00] VITALS: BP 133/74; PULSE 82; RESP 20; TEMP 36.9; O2SAT 96
[2020-07-12 05:00] VITALS: BMI 51.2
--- NOTE | 2020-07-12 07:32 | HMH.PHAVTE ---
[facility] Pharmacy VTE Monitoring - Patient Demographics Admission date: 07/11/20 Report Date: 07/12/20 Time: 07:32 Allergies/Adverse Reactions: Patient Allergies No Known Allergies Allergy (Verified 07/11/20 18:36) Height: 1.7 m Weight: 148.126 kg Patient Problems: Current Active Problems NAMRATA (acute kidney injury) (Acute) Leg pain, bilateral (Acute) - VTE Risk Labs: VTE Related Lab Results Hgb 14.6 g/dL (12.2-16.2) 07/11/20 12:58 Hct 45.3 % (37.0-47.0) 07/11/20 12:58 Plt Count 355 K/mm3 (142-424) 07/11/20 12:58 BUN 36 mg/dl (7-17) H 07/11/20 12:58 Creatinine 2.00 mg/dl (0.52-1.04) H 07/11/20 12:58 Estimated Creat Clear 33 mL/min (50-200) 07/11/20 12:58 - Prophylaxis VTE Prophylaxis Ordered?: Yes Types of VTE Prophylaxis: TEDS Knee High Location of Applied Device: Bilateral Lower Extremeties
[2020-07-12 08:00] VITALS: BP 129/83; PULSE 80; RESP 20; TEMP 37.1; O2SAT 93
[2020-07-12 08:16] LABS: Chloride 111 mmol/L (98-107)
[2020-07-12 08:17] LABS: Potassium 4.6 mmoL/L (3.5-5.1); Sodium 140 mmol/L (136-145)
[2020-07-12 08:20] LABS: Anion Gap 9.6 mEq/L (5-15); Blood Urea Nitrogen 26 mg/dl (7-17); Calcium 9.4 mg/dl (8.4-10.2); Carbon Dioxide 24 mmol/L (22.0-30.0); Creatinine Clearance Estimated 35 mL/min (50-200); Estimated Glomerular Filt Rate 30 ml/min (>60); GFR (African American) 36 ML/MIN (>60); Glucose 89 mg/dl (74-100)
--- NOTE | 2020-07-12 08:37 | HMH.HPDC ---
General - General Admission date:: 07/11/20 Discharge date: 07/12/20 *Admission Date: 07/11/20 *Chief complaint: Bilateral foot pain *History of present illness: 49-year-old white female who suffers from morbid obesity, although currently is on a weight loss trajectory, and also with relatively new onset diabetes, diagnosed approximately 5 months ago. She has also struggled with ongoing foot pain over many years, probably from a combination of osteoarthritis and now with significant neuropathy, attributed to diabetes but somewhat atypical with bilateral significant foot pain. She struggled intensely with foot pain over the past several months and this has accelerated over the past several weeks. In the outpatient setting we had attempted several medicines for neuropathy, such as Lyrica, gabapentin, amitriptyline and duloxetine, which we actually cut the doses down several weeks ago because of somnolence. A couple weeks after this this precipitated intense pain, she had significant emotional distress with this pain and called my office multiple times. She missed several appointments because of work schedules, and ultimately did receive a short-term Percocet prescription from me after an office visit that did not help much. We have referred her to pain clinic but they have suggested stimulator placement which she is emotionally and vehemently opposed to. She presented to the emergency department yesterday because of the chief complaint of pain, ER doctor was concerned about possible vascular insufficiency and a mild acute kidney injury and she was admitted overnight to the hospital. [place] History I have reviewed the patient's past medical history: Yes Medical History: Reports:: Anxiety, Asthma, Depression, Diabetes Mellitus Type 2, Hypertension, Renal Disease Denies:: Cancer, Diabetes Mellitus Type 1, Internal Pacemaker, MRSA *Have you ever received a pneumonia vaccine?: No *Have you received a flu vaccine this season?: Yes Other Medical History: Reports: Thyroid Disease Laterality Cases: Bilateral: Tonsillectomy Other Surgeries: Yes: No Previous Surgery, Cholecystectomy. No: Pacemaker Amputation: No Fractures: No - *Social History Smoking Status: Never smoker Alcohol Intake: never Substance Use Type: denies use *Occupational Status:: previously employed Housing: house Household Members: spouse *Travel in the last 8 weeks: None - Psychiatric History Pschychiatric History:: Reports:: Anxiety, Depression Family Hx:: Kidney Disease Review of Systems - Review of Systems Review of systems:: pertinent systems reviewed and negative unless documented below - *Neurologic Reports numbness, Reports radiating pain, Reports restless legs, Reports tingling, Denies abnormal walking, Denies unsteadiness, Denies headache(s) Exam Vital signs and Labs for Last 24 Hours: Temp Pulse Resp BP Pulse Ox 98.7 F 80 20 129/83 93 L 07/12/20 08:00 07/12/20 08:00 07/12/20 08:00 07/12/20 08:00 07/12/20 08:00 Laboratory Results - last 24 hr 07/11/20 12:58: WBC 15.3 H, RBC 5.07, Hgb 14.6, Hct 45.3, MCV 89.3, MCH 28.8, MCHC 32.2, RDW 13.6, Plt Count 355, MPV 7.8, Neut % (Auto) 76.6, Lymph % (Auto) 18.5, [place] % (Auto) 3.7, Eos % (Auto) 0.9, Baso % (Auto) 0.2, Neut # (Auto) 11.7 H, Lymph # (Auto) 2.8, [place] # (Auto) 0.6, Eos # (Auto) 0.1, Baso # (Auto) 0.0, Total Counted 100, Neutrophils % (Manual) 75, Lymphocytes % (Manual) 19, Monocytes % (Manual) 3, Eosinophils % (Manual) 3, Platelet Estimate Normal, RBC Morphology Normal 07/11/20 12:58: Sodium 140, Potassium 4.0, Chloride 107, Carbon Dioxide 23, Anion Gap 14.0, BUN 36 H, Creatinine 2.00 H, Estimated Creat Clear 33, Estimated GFR 26 L, Est GFR ( Amer) 32 L, Glucose 114 H, Calcium 10.0, Total Bilirubin 0.5, AST 25, ALT 28, Alkaline Phosphatase 120, Total Protein 7.4, Albumin 4.5, Globulin 2.9, Albumin/Globulin Ratio 1.6 07/11/20 12:58: Lactate 1.2 07/11/20 16:12: Chlamy pneumoniae PCR Not dete
--- NOTE | 2020-07-12 09:53 | US_ITS ---
APPROVED REPORT Exam Type: Ankle to Brachial Index Market Reporter: Danita Harden RCS, RVS Risk Factors Hypertension Hyperlipidemia Obesity Diabetes Pressures/Indices Right Indices Left Indices Brachial 152.00 mmHg Brachial 156.00 mmHg Low Thigh 176.00 mmHg 1.13 Low Thigh 181.00 mmHg 1.16 Calf 164.00 mmHg 1.05 Calf 150.00 mmHg 0.96 Ankle(PT) 183.00 mmHg 1.17 Ankle(PT) 162.00 mmHg 1.04 Ankle(DP) 162.00 mmHg 1.04 Ankle(DP) 167.00 mmHg 1.07 Digit 168.00 mmHg 1.08 Digit 148.00 mmHg 0.95 Findings No evidence significant arterial disease throughout the right and left lower extremities as evidenced by normal resting PVR waveforms and normal resting indices. RT DOMINIC=1.17 LT DOMINIC=1.07 RT TPI=1.08 LT TPI=0.95 Conclusion RT DOMINIC=1.17 LT DOMINIC=1.07 RT TPI=1.08 LT TPI=0.95 Normal appearing resting noninvasive lower extremity arterial study. Electronically signed by : Zane Blandon MD 07/12/2020 18:31:21
--- NOTE | 2020-07-12 10:11 | PC.NURSE ---
dr pollack stated to do arterial ultrasound of lower extremities. stated discharge would be pending this result
== END 2020-07-12 14:00 | disposition home or self-care (01) ==
LOC: ER 16:06 → 2ND 17:11
PROVIDERS: Admitting Provider Internal Medicine Adolescent Medicine; Emergency Provider Emergency Medicine; PCP Internal Medicine Adolescent Medicine; Visit Provider Internal Medicine Adolescent Medicine
DX: N17.9 Acute kidney failure, unspecified (principal); E66.01 Morbid (severe) obesity due to excess calories; Z68.43 Body mass index [BMI] 50.0-59.9, adult; E11.9 Type 2 diabetes mellitus without complications; I10 Essential (primary) hypertension; M79.604 Pain in right leg; M79.605 Pain in left leg
CPT/HCPCS: 36415; 80048; 80053; 83605; 85007; 85025; 87581; 87633; 87798; 93923; 96365; 96366; 96375; 96376; 99284; G0378; J2405

== ENCOUNTER → 2020-10-27 12:08 | Outpatient (CLI) | payer BC, SELFPAY ==
[2020-10-27 13:02] LABS: Basophils # 0.1 K/mm3 (0-0.2); Basophils % 0.7 % (0.1-2.0); Eosinophils # 0.5 K/mm3 (0.0-0.4); Hematocrit 48.5 % (37.0-47.0); Hemoglobin 15.8 g/dL (12.2-16.2); Lymphocytes # 3.5 K/mm3 (0.7-4.5); Lymphocytes % 27.9 % (10-50); Mean Corpuscular HGB Conc 32.5 g/dL (31.8-35.4); Mean Corpuscular Hemoglobin 28.9 pg (27.0-31.2); Mean Corpuscular Volume 88.8 fl (81-99); Mean Platelet Volume 8.8 fl (7.4-10.4); Monocytes # 0.4 K/mm3 (0.1-1.0); Monocytes % 3.6 % (1.7-9.3); Neutrophils # 7.9 K/mm3 (1.8-7.8); Neutrophils % 63.8 % (37.0-80.0); Platelet Count 342 K/mm3 (142-424); Red Blood Count 5.46 M/mm3 (4.20-5.40); Red Cell Distribution Width 13.2 % (11.5-17.5); White Blood Count 12.4 K/mm3 (4.8-10.8)
[2020-10-27 13:35] LABS: Hemoglobin A1C 5.4 % (4.0-6.0)
[2020-10-27 14:15] LABS: Alanine Aminotransferase 37 U/L (12-78); Albumin Level 4.1 g/dl (3.5-5.0); Albumin/Globulin Ratio 1.8 (1.1-1.8); Alkaline Phosphatase 122 U/L (38-126); Anion Gap 15.7 mEq/L (5-15); Aspartate Amino Transferase 27 U/L (14-36); Bilirubin,Total 0.5 mg/dl (0.2-1.3); Blood Urea Nitrogen 34 mg/dl (7-17); Calcium 9.2 mg/dl (8.4-10.2); Carbon Dioxide 24 mmol/L (22.0-30.0); Chloride 105 mmol/L (98-107); Estimated Glomerular Filt Rate 30 ml/min (>60); GFR (African American) 36 ML/MIN (>60); Globulin 2.3 g/dL (1.3-3.2); Glucose 88 mg/dl (74-100); Potassium 4.7 mmoL/L (3.5-5.1); Sodium 140 mmol/L (136-145); Total Protein,Serum 6.4 g/dl (6.3-8.2)
[2020-10-27 14:32] LABS: Free Thyroxine Index 2.8 ug/dL (5.93-13.13); T4 (Thyroxine) 8.5 ug/dl (5.53-11.0); Triiodothryronine (T3) Uptake 33 % (23.5-40.5)
[2020-10-27 14:46] LABS: Thyroid Stimulating Hormone 2.34 uIU/mL (0.465-4.68)
[2020-10-27 15:07] LABS: Vitamin B12 354 pg/mL (239-931)
== END ==
PROVIDERS: Visit Provider Internal Medicine Adolescent Medicine
DX: E11.9 Type 2 diabetes mellitus without complications (principal); R20.2 Paresthesia of skin
CPT/HCPCS: 36415; 80053; 82607; 83036; 84436; 84443; 84479; 85025

== ENCOUNTER → 2021-02-21 16:37 | Outpatient (CLI) | payer BC, SELFPAY ==
--- NOTE | 2021-02-21 16:43 | MR_ITS ---
PROCEDURE: MR LUMBAR SPINE WO CON CLINICAL INDICATION: BILATERAL FEET NUMBNESS COMPARISON: No exams were available for comparison TECHNIQUE: Standard multiplanar multiecho sequences are performed without contrast. 3-D MIP and myelographic images are also rendered and reviewed FINDINGS: Motion artifact noted on every sequence despite repeating the exam. There is normal alignment. Spinal cord ends at the L1 level. Mild degenerative disc disease is present at T10-T11 and T11-T12. L1-L2: Unremarkable. L2-L3: Unremarkable. L3-L4: Mild concentric bulging disc with mild facet and ligamentum hypertrophy with mild bilateral lateral recess narrowing and moderate bilateral foraminal narrowing. L4-5: 3 mm anterolisthesis of L4 on L5 with bulging disc and moderate facet and ligamentum hypertrophy with canal stenosis, bilateral lateral recess narrowing, and moderate bilateral foraminal narrowing. L5-S1: Facet and ligamentum hypertrophy with mild right and moderate left foraminal narrowing. No extruded herniated disc. No fracture or dislocation. IMPRESSION: Multilevel lumbar spondylosis with degenerative disc disease, bulging disc, facet and ligamentum hypertrophy with lateral recess and foraminal narrowing and canal stenosis. Please see above for detailed description at each level. Dictated by: Zane Blandon MD 02/22/2021 08:09 Zane Blandon MD in [place] 02/22/2021 08:09
== END ==
PROVIDERS: PCP Internal Medicine Adolescent Medicine; Visit Provider Internal Medicine Adolescent Medicine
DX: R20.2 Paresthesia of skin (principal); M54.50 Low back pain, unspecified
CPT/HCPCS: 72148; 76376

== ENCOUNTER → 2021-03-10 08:48 | Outpatient (POV) | payer BC, SELFPAY ==
[2021-03-10 09:17] VITALS: BP 165/85; PULSE 86; RESP 18; O2SAT 97; BMI 42.0
--- NOTE | 2021-03-10 12:54 | HMH.PMCON ---
Assessment and Plan (1) Degenerative joint disease (DJD) of lumbar spine Status: Chronic Category: Medical Code(s): M47.816 - Spondylosis without myelopathy or radiculopathy, lumbar region (2) Lumbar radiculopathy Status: Chronic Category: Medical Code(s): M54.16 - Radiculopathy, lumbar region (3) Spinal stenosis Status: Chronic Category: Medical Code(s): M48.00 - Spinal stenosis, site unspecified (4) Neurogenic claudication Status: Chronic Category: Medical Code(s): G95.19 - Other vascular myelopathies (5) Peripheral neuropathy Status: Chronic Category: Medical Code(s): G62.9 - Polyneuropathy, unspecified - Assessment and plan all Dx Assessment and Plan for all problems:: Patient is here today for consultation for chronic foot pain with paresthesia bilateral feet. She has tried all modalities of conservative therapy with chiropractic therapy, podiatry, neurology as well as with her primary care provider. She he was seen in our clinic in the past and was told that she would likely benefit from implanted devices but reports she was not evaluated properly. She did not feel comfortable moving forward. She had not had any imaging of her lumbar spine at that time. She denies any color changes temperature changes or edema to the feet. She does have a cold sensation, but does not note any changes upon palpation. The patient I did review her MRI today. Patient's MRI report? Multilevel lumbar spondylosis with degenerative disc disease, bulging disc, facet and ligamentum hypertrophy with lateral recess and foraminal narrowing and canal stenosis . Patient reports to be getting relief when leaning forward. We will schedule the patient for a lumbar epidural steroid injection at the L4-L5 area to see if she gets relief. She does have palpable pulses bilateral feet. She does not have any temperature or color changes to the feet, nor does she have any edema noted. She is not on any anticoagulation therapy. She is diabetic. We will schedule her for the lumbar epidural steroid injection at L4-L5 and we will plan to see her back in the clinic afterwards for further evaluation. HPI - Data of Consult Patient: new to practice Consult date: 03/10/21 Requesting Physician: Dulce Maria Rahman APRN - Consult Narrative Reason for consult: Bilateral foot pain, intermittent low back pain History of present illness: Ms. Stout is a 50 year old female who presents today for consultation for bilateral foot pain with numbness and tingling. The patient says that she has had significant foot pain with numbness and tingling for 15 months. She says that she had a fall and developed severe foot pain afterwards. The pain progressively worsened to the point that the patient describes the pain is unbearable. She was seen in our clinic in the past and says that she was told a pain pump would help with her pain. She did not feel comfortable proceeding. Patient says that she was not assessed or evaluated at the time of the visit. She says no one looked at her feet or checked her back . She says imaging was not performed at that time. She is here today to discuss possible options for pain relief. She does have intermittent low back pain as well as pain in her legs intermittently. The patient has lost more than 150 pounds over the last year. She does report the pain to occasionally shift from 1 buttock to the other. She says that she has to wear multiple socks at bedtime due to her feet having a cold sensation . The patient has tried multiple modalities of treatment. She has seen physical therapy in the past for greater than 6 weeks. She has tried chiropractic therapy with minimal relief. She has tried multiple medications with out relief. The only thing that has given her any significant relief has been corticosteroids. Patient says when she takes steroids she gets excellent relief, but as the steroid wears off her pain return
== END ==
PROVIDERS: Visit Provider Clinical Nurse Specialist Family Health
DX: M47.896 Other spondylosis, lumbar region (principal); M54.16 Radiculopathy, lumbar region; M48.00 Spinal stenosis, site unspecified; G95.19 Other vascular myelopathies; G62.9 Polyneuropathy, unspecified
CPT/HCPCS: 99202; G0463

== ENCOUNTER 2021-03-16 09:00 | Day surgery (SDC) | payer BC, SELFPAY ==
[2021-03-16 09:05] VITALS: BP 144/88; PULSE 78; RESP 20; TEMP 36.6; O2SAT 99; BMI 44.8
[2021-03-16 09:35] VITALS: BP 162/88; PULSE 66; RESP 18; O2SAT 98
[2021-03-16 09:36] VITALS: PULSE 66; RESP 18; O2SAT 98
--- NOTE | 2021-03-16 09:45 | HMH.PMPROC ---
- Procedure Date: 03/16/21 Time: 09:46 Anesthesiologist:: Danilo Kang MD Complications:: None Pre-procedure Diagnosis:: Degenerative disc disease of lumbar spine with lumbar radiculopathy symptoms Post-procedure Diagnosis:: Same Indications for Procedure:: Patient is a pleasant 50-year-old white female who we are treating for low back pain with lumbar radiculopathy symptoms. Most of her pain is in both legs and both feet. We will plan on lumbar epidural steroid injection today to see if this helps significantly with her radicular symptoms. She does get relief from oral steroids however this was not long-lasting. Procedure Details:: Informed consent was obtained and the risk and benefits of the procedure was explained to the patient. The patient was taken to the procedure room. The patient was placed prone on the procedure table. The patient was prepped and draped in sterile fashion. C-arm fluoroscopy was used to view the lumbar spine. Skin and subcutaneous tissues were anesthetized using lidocaine. I placed an 18-gauge epidural needle and advanced into the L4-L5 interspace using fluoroscopic guidance and [id number] to air. After confirmation of needle placement in the epidural space with dye I injected 2 mL of lidocaine 1.5% with Depo-Medrol 80 mg. Patient tolerated the procedure well with no complications. Plan and Disposition:: We will follow-up with her in 2 weeks. Will reevaluate symptoms at that time.
[2021-03-16 10:03] VITALS: BP 135/85; PULSE 65; RESP 20; O2SAT 99
== END 2021-03-16 10:04 | disposition home or self-care (01) ==
LOC: SC.PAINP 09:00
PROVIDERS: PCP Internal Medicine Adolescent Medicine; Visit Provider Anesthesiology
DX: M51.16 Intervertebral disc disorders with radiculopathy, lumbar region (principal); I10 Essential (primary) hypertension; D64.9 Anemia, unspecified; E11.9 Type 2 diabetes mellitus without complications; F32.A Depression, unspecified; E03.9 Hypothyroidism, unspecified
CPT/HCPCS: 62323; J1040; Q9966

== ENCOUNTER → 2021-03-31 09:50 | Outpatient (POV) | payer BC, SELFPAY ==
[2021-03-31 10:07] VITALS: BP 173/80; PULSE 86; RESP 18; O2SAT 99; BMI 42.3
--- NOTE | 2021-03-31 11:54 | HMH.PAINSOAP ---
[facility] Pain Management SOAP Note Subjective:: Patient is a 50-year-old white female who presents today for follow-up. She recently had a lumbar epidural steroid injection at L4-L5. She got significant relief with the injection. She says that it did take the edge off of her pain. She does still have a cold sensation bilateral feet. She does admit to finally have feeling in her bilateral feet which is a new sensation for her. She does take gabapentin 800 mg 1 tablet p.o. 5 times daily and has taken tramadol in the past as well. At last visit with us, we did start the patient on Preston 5 mg 1 tablet p.o. twice daily. This has helped immensely with her pain as well. 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 The patient says because she got significant relief with the initial lumbar epidural steroid injection she would like to proceed with second injection. She got up to 80% relief. She continues with home stretching, oral medications. She has tried physical therapy for more than 6 weeks in the past. Today, she rates her pain a 5 out of 10. The patient's Jose Guadalupe #[id number] has been reviewed and is appropriate. Drug screen is appropriate. Morphine equivalent is 35 Review of Systems General: No recent weight changes, no fever, no sleep disturbances Respiratory: No cough, no shortness of air, no recurring pulmonary infections Cardiovascular/peripheral vascular: No chest pain, no palpitations, no edema, no shortness of breath Gastrointestinal: No new onset incontinence, normal bowel movements reported Genitourinary: No new onset incontinence Musculoskeletal: Low back pain with radiation into the Psychiatric: [Normal mood/affect] Neurological: [Denies weakness in extremities], [denies balance issues] Objective:: physical exam General: Alert and oriented x3, no acute distress, pleasant and cooperative Lungs: Respirations even and unlabored, symmetrical chest expansion Eyes: PERRL Musculoskeletal: Flexion and extension of lumbar [spine] somewhat guarded secondary to pain, [antalgic gait noted] Neurological: Speech clear, no gross sensory deficit Assessment:: Degenerative disc disease lumbar spine with lumbar radiculopathy symptoms Plan:: We will schedule patient for repeat lumbar epidural steroid injection at L4-L5 area. She is not on any anticoagulation therapy. We will continue her Preston 5 mg 1 tablet p.o. twice daily. She has been advised to stop taking tramadol prescribed by Dr. Blas. She can continue her gabapentin. ORT is low risk. Patient has signed and completed a pain management agreement/contract today. She understands she is at a high risk for oversedation with the medication and does have a high risk of dependence on medication. Risks and benefits of the medication have been explained in detail to the patient. The patient does understand the risk of dependence on the medication when given over a prolonged period. Patient has been advised of risks of oversedation with the prescribed medication. Narcan has been offered to the paitent in the event of oversedation. Patient has been advised that a family member should also be educated regarding administration of Narcan. The patient has been advised to consult with his/her primary care provider and pharmacist regarding drug-drug interaction of medications currently prescribed. Patient has been prescribed a controlled substance after being counseled on the medication, medication safety, and possible side effects. JOSE GUADALUPE report has been obtained and reviewed prior to prescription and found to be appropriate. Opioid contract was reviewed and signed by the patient, and that they have agreed to all of the terms set forth by our compliance program. Patient has been instructed to contact the clinic with any concerns before the next appointment. Dr. Kang has reviewed this note and agrees with this plan of care. This note was dict
== END ==
PROVIDERS: Visit Provider Clinical Nurse Specialist Family Health
DX: M51.16 Intervertebral disc disorders with radiculopathy, lumbar region (principal)
CPT/HCPCS: 99212; G0463

== ENCOUNTER 2021-04-22 09:48 | Day surgery (SDC) | payer BC, SELFPAY ==
[2021-04-22 09:54] VITALS: BP 152/91; PULSE 76; RESP 20; TEMP 36.7; O2SAT 98; BMI 44.3
--- NOTE | 2021-04-22 10:23 | P.PCN_ITS ---
- Procedure Date: 04/22/21 Time: 10:23 Anesthesiologist:: Danilo Kang MD Complications:: None Pre-procedure Diagnosis:: Degenerative disc disease of lumbar spine with lumbar radiculopathy symptoms Post-procedure Diagnosis:: Same Indications for Procedure:: Patient is a pleasant 50-year-old white female who we are treating for low back pain with lumbar radiculopathy symptoms. She did very well with her last lumbar epidural steroid injection. She has increasing pain in the low back radiating to both feet. We will plan on repeat lumbar pleural steroid injection today as her pain is just now starting to come back. She was 80% better for several months. Procedure Details:: Informed consent was obtained and the risk and benefits of the procedure was exp lained to the patient. The patient was taken to the procedure room. The patient was placed prone on the procedure table. The patient was prepped and draped in sterile fashion. C-arm fluoroscopy was used to view the lumbar spine. Skin and subcutaneous tissues were anesthetized using lidocaine. I placed an 18-gauge epidural needle and advanced into the L5-S1 interspace using fluoroscopic guidance and [id number] to air. After confirmation of needle placement in the epidural space with dye I injected 2 mL of lidocaine 1.5% with Depo-Medrol 80 mg. Patient tolerated the procedure well with no complications. Plan and Disposition:: We will follow-up with her in 2 weeks. Will reevaluate symptoms at that time.
[2021-04-22 10:25] VITALS: BP 156/82; PULSE 84; PULSE 89; RESP 18; O2SAT 97
[2021-04-22 10:38] VITALS: BP 146/95; PULSE 72; RESP 20; O2SAT 99
== END 2021-04-22 10:38 | disposition home or self-care (01) ==
LOC: SC.PAINP 09:50
PROVIDERS: PCP Internal Medicine Adolescent Medicine; Visit Provider Anesthesiology
DX: M51.16 Intervertebral disc disorders with radiculopathy, lumbar region (principal)
CPT/HCPCS: 62323; J1040; Q9966

== ENCOUNTER → 2021-05-12 10:24 | Outpatient (POV) | payer BC, SELFPAY ==
--- NOTE | 2021-05-12 12:07 | P.CONS_ITS ---
[facility] Pain Management SOAP Note Subjective:: Patient is a very pleasant 50-year-old white female who presents today for follow-up and medication refills via telehealth visit. She is currently being treated for degenerative disc disease at lumbar spine with lumbar radiculopathy symptoms. She has recently undergone a lumbar epidural steroid injection under fluoroscopy at L5-S1 and she states she has been experiencing 70 to 80% pain relief in her low back and leg symptoms but she continues to have severe pain in her feet. She has previously been prescribed hydrocodone 5 mg twice daily for 1 month supply was prescribed by our clinic to help in the interim until she could undergo the lumbar epidural steroid injection. He states that the hydrocodone in conjunction with the gabapentin 800 mg 5 times a day helps better than the tramadol 50 mg 5 times a day, which are being prescribed by her primary care physician. She rates her pain today as a 7 out of 10. She is requesting refills on the hydrocodone to help with her uncontrolled pain. Objective:: General: Alert and oriented x3, pleasant and cooperative Neurological: Speech clear Assessment:: Degenerative disc disease of the lumbar spine with lumbar radiculopathy Diabetic painful peripheral neuropathy Plan:: Discussed with the patient that given her pain symptoms related to diabetic neuropathy as well as degenerative disc disease of the lumbar spine with lumbar radiculopathy she would most benefit from spinal cord stimulator therapy. However, the patient states that she is not interested in this at this time and would like to hold off. She would like to repeat a lumbar epidural steroid injection again as she states that the first injection helped better than the second injection. I also discussed with the patient that we cannot continue to prescribe hydrocodone for her degenerative noncancer related pain. He is currently being prescribed tramadol 50 mg 5 times daily and gabapentin 800 mg 5 times daily by her primary care physician. Discussed with the patient that she may benefit from switching to Lyrica for better neuropathic pain control. I discussed with her to first discuss this medication switch with her primary care physician; however, if her primary care physician is reluctant to prescribe this I can take over prescribing her neuropathic pain medication (lyrica). We will follow-up with this patient in 1 month for reassessment of her chronic pain symptoms. Wilfrid number [id number] and prior addictions were reviewed and are appropriate. [facility] History Medical History: Reports:: Anxiety, Asthma, Depression, Diabetes Mellitus Type 2, Hypertension, Renal Disease Denies:: Cancer, Diabetes Mellitus Type 1, Internal Pacemaker, MRSA, Seizures *Have you ever received a pneumonia vaccine?: Yes *Have you received a flu vaccine this season?: Yes Other Medical History: Reports: Arthritis, Thyroid Disease Laterality Cases: Bilateral: Tonsillectomy Other Surgeries: Yes: No Previous Surgery, Cholecystectomy. No: Pacemaker Amputation: No Fractures: No - *Social History Smoking Status: Never smoker Alcohol Intake: never Substance Use Type: denies use *Occupational Status:: employed Housing: house Household Members: other *Travel in the last 8 weeks: None - Psychiatric History Pschychiatric History:: Reports:: Anxiety, Depression Family Hx:: Other
== END ==
PROVIDERS: Visit Provider Anesthesiology Pain Medicine
DX: M51.16 Intervertebral disc disorders with radiculopathy, lumbar region (principal); E11.42 Type 2 diabetes mellitus with diabetic polyneuropathy
CPT/HCPCS: 99212; G0463

== ENCOUNTER → 2021-05-20 16:51 | Outpatient (CLI) | payer BC, SELFPAY ==
--- NOTE | 2021-05-20 16:55 | XR_ITS ---
PROCEDURE INFORMATION: Exam: XR Right Foot Complete; Alignment Exam date and time: 05/20/2021 4:55 PM Age: 50 years old Clinical indication: Pain; Foot; Right; Additional info: Foot pain TECHNIQUE: Imaging protocol: XR Right foot. Views: 3 or more views. COMPARISON: US ARTERIAL LOWER EXT REST 07/12/2020 10:31 AM FINDINGS: Bones/joints: Osteoarthritic changes at the 1st metatarsophalangeal joint and throughout the midfoot, as manifested predominantly by marginal osteophyte formation. Large plantar calcaneal spur. There is no evidence of acutely displaced fractures. There is no evidence of joint dislocation. No aggressive osseous lesions. Soft tissues: There is no significant soft tissue swelling. IMPRESSION: 1. No acute skeletal pathology. 2. Incidental findings as above.
--- NOTE | 2021-05-20 16:55 | XR_ITS ---
PROCEDURE INFORMATION: Exam: XR Left Foot Complete; Alignment Exam date and time: 05/20/2021 4:55 PM Age: 50 years old Clinical indication: Pain; Foot; Left; Additional info: Foot pain TECHNIQUE: Imaging protocol: XR Left foot. Views: 3 or more views. COMPARISON: US ARTERIAL LOWER EXT REST 07/12/2020 10:31 AM FINDINGS: Bones/joints: Osteoarthritic changes at the midfoot and at the 1st metatarsophalangeal joint, as manifested by decreased joint space and marginal osteophyte formation. Large plantar calcaneal spur.There is no evidence of acutely displaced fractures. There is no evidence of joint dislocation. No aggressive osseous lesions. Soft tissues: Chronic calcification at the plantar fascia, compatible with sequela of prior plantar fasciitis. There is no significant soft tissue swelling. IMPRESSION: 1. No acute skeletal pathology. 2. Incidental findings as above.
== END ==
PROVIDERS: PCP Internal Medicine Adolescent Medicine; Visit Provider Internal Medicine Adolescent Medicine
DX: M79.672 Pain in left foot (principal); M79.671 Pain in right foot
CPT/HCPCS: 73630

== ENCOUNTER 2021-06-02 09:08 | Emergency (ER) | payer OTHER, SELFPAY ==
[2021-06-02] VITALS (7 sets, daily range): BP systolic 119–159; BP diastolic 69–96; PULSE 67–89; RESP 16–24; TEMP 37.1; O2SAT 96–100; BMI 43.8
--- NOTE | 2021-06-02 09:19 | XR_ITS ---
FINAL REPORT CLINICAL HISTORY: abd pain COMPARISON: December 13, 2019 FINDINGS: A single portable view of the chest was obtained. The heart size and pulmonary vascularity are within normal limits. The mediastinum is within normal limits. No acute pulmonary abnormality is identified. The bony thorax is intact. IMPRESSION: No active cardiopulmonary disease. Reviewed, Interpreted and Dictated by Jerome Alvarez III, MD Transcribed by Dulce Maria Serrano Authenticated by Jerome lAvarez III, MD on 06/02/2021 10:13:46 AM [facility]
[2021-06-02 09:23] LABS: POC Glucose,Bedside 73 (70-110)
[2021-06-02 09:31] LABS: Basophils # 0.1 K/mm3 (0-0.2); Basophils % 0.9 % (0.1-2.0); Eosinophils # 0.1 K/mm3 (0.0-0.4); Eosinophils % 1.3 % (0.1-12.0); Hematocrit 51.3 % (37.0-47.0); Hemoglobin 16.4 g/dL (12.2-16.2); Lymphocytes # 1.6 K/mm3 (0.7-4.5); Lymphocytes % 18.8 % (10-50); Mean Corpuscular Hemoglobin 30.3 pg (27.0-31.2); Mean Corpuscular Volume 94.7 fl (81-99); Mean Platelet Volume 7.7 fl (7.4-10.4); Monocytes # 0.3 K/mm3 (0.1-1.0); Monocytes % 3.6 % (1.7-9.3); Neutrophils # 6.4 K/mm3 (1.8-7.8); Neutrophils % 75.3 % (37.0-80.0); Platelet Count 383 K/mm3 (142-424); Red Blood Count 5.41 M/mm3 (4.20-5.40); Red Cell Distribution Width 12.6 % (11.5-17.5); White Blood Count 8.5 K/mm3 (4.8-10.8)
--- NOTE | 2021-06-02 09:32 | HMH.EDGENADL ---
ED Disposition Clinical Impression: NAMRATA (acute kidney injury) Medication reaction Qualifiers: Encounter type: initial encounter Qualified Code(s): T50.905A - Adverse effect of unspecified drugs, medicaments and biological substances, initial encounter Disposition: Home, Self-Care Condition on Discharge: Good Instructions: DI for Dehydration -- Adult Referrals: Robert Cain MD [Primary Care Provider] - - Critical Care Critical Care Time: No Attestation: On 06/02/21, the high probability of a clinically significant, sudden or life threatening deterioration of the following system(s) required my full and direct attention, intervention and personal management. The time I documented below is in addition to time spent performing reported procedures but includes the following listed in this critical care notation. Medical Decision Making - Medical Records Medical records reviewed: Yes: I reviewed the patient's medical records. - Wilfrid Inquiry Pt receiving controlled substance: No Vital Signs: 06/02/21 09:09 06/02/21 09:16 06/02/21 09:31 Temperature 98.8 F Temperature Source Oral Pulse Rate 69 69 Pulse Rate [Radial] 89 Respiratory Rate 24 18 18 Blood Pressure 159/96 H 157/85 H Blood Pressure [Right Arm] 159/69 H Blood Pressure Mean 124 109 Blood Pressure Mean [Right Arm] 99 Blood Pressure Position [Right Arm] Sitting 02 Sat by Pulse Oximetry 97 99 100 Oxygen Delivery Method Room Air Room Air Room Air 06/02/21 10:01 06/02/21 10:37 06/02/21 11:01 Temperature Temperature Source Pulse Rate 67 71 72 Pulse Rate [Radial] Respiratory Rate 20 18 16 Blood Pressure 119/71 144/93 H 125/87 Blood Pressure [Right Arm] Blood Pressure Mean 87 103 95 Blood Pressure Mean [Right Arm] Blood Pressure Position [Right Arm] 02 Sat by Pulse Oximetry 96 Oxygen Delivery Method Room Air - Lab Data Lab Results 06/02/21 09:15: POC Glucose 73 06/02/21 09:25: WBC 8.5, RBC 5.41 H, Hgb 16.4 H, Hct 51.3 H, MCV 94.7, MCH 30.3, MCHC 32.0, RDW 12.6, Plt Count 383, MPV 7.7, Neut % (Auto) 75.3, Lymph % (Auto) 18.8, Richardson % (Auto) 3.6, Eos % (Auto) 1.3, Baso % (Auto) 0.9, Neut # (Auto) 6.4, Lymph # (Auto) 1.6, Richardson # (Auto) 0.3, Eos # (Auto) 0.1, Baso # (Auto) 0.1 06/02/21 09:25: Sodium 136, Potassium 4.8, Chloride 104, Carbon Dioxide 21 L, Anion Gap 15.8 H, BUN 24 H, Creatinine 1.70 H, Estimated Creat Clear 39, Estimated GFR 32 L, Est GFR ( Amer) 38 L, Glucose 79, Calcium 8.9, Total Bilirubin 0.9, AST 33, ALT 28, Alkaline Phosphatase 153 H, Total Protein 7.7, Albumin 4.6, Globulin 3.1, Albumin/Globulin Ratio 1.5 06/02/21 09:25: Lipase 130 Result diagrams: 06/02/21 09:25 06/02/21 09:25 Orders (Tests/Meds): ED MEDICATIONS Generic Name Dose Route Start Last Admin Trade Name Freq PRN Reason Stop Dose Admin Sodium Chloride 10 ml 06/02/21 09:26 06/02/21 09:33 Sodium Chloride 0.9% 10ml Vial IV 07/02/21 09:25 10 ml NEEDED PRN Administration to Dilute Lorazepam inj Discontinued Medications Generic Name Dose Route Start Last Admin Trade Name Freq PRN Reason Stop Dose Admin Haloperidol Lactate 5 mg 06/02/21 10:13 06/02/21 10:15 Haloperidol Lactate 5 Mg/Ml Vial IV 06/02/21 10:14 5 mg ONCE ONE Administration Sodium Chloride 1,000 mls @ 999 mls/hr 06/02/21 10:15 06/02/21 10:15 Sod Chlor 0.9% 1000ml Bag IV 06/02/21 11:15 999 mls/hr .Q1H1M ELKIN Administration Lorazepam 2 mg 06/02/21 09:26 06/02/21 09:33 Lorazepam 2mg/Ml Vial IV 06/02/21 09:27 2 mg ONCE ONE Administration Morphine Sulfate 4 mg 06/02/21 10:36 06/02/21 10:46 Morphine 4mg/Ml Syringe IV 06/02/21 10:37 4 mg ONCE ONE Administration Ondansetron HCl 4 mg 06/02/21 09:26 06/02/21 09:33 Ondansetron 4mg/2ml Vial IV 06/02/21 09:27 4 mg ONCE ONE Administration - Radiology Data #1 Image(s): Chest Image Reviewed: Yes I reviewed the patient's radi
[2021-06-02 09:35] LABS: Chloride 104 mmol/L (98-107); Sodium 136 mmol/L (136-145)
[2021-06-02 09:36] LABS: Potassium 4.8 mmoL/L (3.5-5.1)
[2021-06-02 09:38] LABS: Alanine Aminotransferase 28 U/L (12-78); Alkaline Phosphatase 153 U/L (38-126); Aspartate Amino Transferase 33 U/L (14-36); Bilirubin,Total 0.9 mg/dl (0.2-1.3); Blood Urea Nitrogen 24 mg/dl (7-17); Creatinine Clearance Estimated 39 mL/min (50-200); Estimated Glomerular Filt Rate 32 ml/min (>60); GFR (African American) 38 ML/MIN (>60)
[2021-06-02 09:39] LABS: Albumin Level 4.6 g/dl (3.5-5.0); Albumin/Globulin Ratio 1.5 (1.1-1.8); Anion Gap 15.8 mEq/L (5-15); Calcium 8.9 mg/dl (8.4-10.2); Carbon Dioxide 21 mmol/L (22.0-30.0); Globulin 3.1 g/dL (1.3-3.2); Glucose 79 mg/dl (74-100); Total Protein,Serum 7.7 g/dl (6.3-8.2)
--- NOTE | 2021-06-02 09:50 | ECG_ITS ---
APPROVED REPORT Exam: Resting ECG HR:80 bpm ECG Measurements Heart Rate 80 AXES PA 144 P 19 QRSd 89 QRS 53 QT 389 T 30 QTc 425 Conclusion SINUS RHYTHM NORMAL ECG UNCONFIRMED REPORT Electronically signed by : Robert Cain MD 06/03/2021 15:04:02
--- NOTE | 2021-06-02 10:10 | PC.NURSE ---
pt tearful writhing around on stretcher. states no improvement with meds given. md informed
--- NOTE | 2021-06-02 10:40 | PC.NURSE ---
pt continues to c/o pain, writhing around on stretcher states no improvement with meds given. at bedside. informed
[2021-06-02 10:53] LABS: Lipase 130 U/L (23-300)
--- NOTE | 2021-06-02 11:46 | PC.NURSE ---
ED MD at bedside for update on POC
== END 2021-06-02 11:55 | disposition home or self-care (01) ==
PROVIDERS: Emergency Provider Emergency Medicine; PCP Internal Medicine Adolescent Medicine
DX: R11.2 Nausea with vomiting, unspecified (principal); T50.905A Adverse effect of unspecified drugs, medicaments and biological substances, initial encounter; R10.9 Unspecified abdominal pain; I10 Essential (primary) hypertension; N28.9 Disorder of kidney and ureter, unspecified; N17.9 Acute kidney failure, unspecified; E11.9 Type 2 diabetes mellitus without complications; F32.A Depression, unspecified; F41.9 Anxiety disorder, unspecified; Z79.1 Long term (current) use of non-steroidal anti-inflammatories (NSAID); Z79.899 Other long term (current) drug therapy
CPT/HCPCS: 71045; 80053; 82962; 83690; 85025; 93005; 96361; 96365; 96374; 96375; 99285; J2405

== ENCOUNTER → 2021-11-29 12:23 | Outpatient (CLI) | payer OTHER, SELFPAY ==
[2021-11-29 13:08] LABS: Basophils # 0.1 K/mm3 (0-0.2); Basophils % 1.1 % (0.1-2.0); Eosinophils # 0.3 K/mm3 (0.0-0.4); Hematocrit 47.4 % (37.0-47.0); Hemoglobin 14.7 g/dL (12.2-16.2); Lymphocytes # 2.1 K/mm3 (0.7-4.5); Lymphocytes % 29.7 % (10-50); Mean Corpuscular Hemoglobin 29.7 pg (27.0-31.2); Mean Corpuscular Volume 95.8 fl (81-99); Mean Platelet Volume 7.8 fl (7.4-10.4); Monocytes # 0.3 K/mm3 (0.1-1.0); Monocytes % 4.1 % (1.7-9.3); Neutrophils # 4.3 K/mm3 (1.8-7.8); Neutrophils % 61.1 % (37.0-80.0); Platelet Count 327 K/mm3 (142-424); Red Blood Count 4.95 M/mm3 (4.20-5.40); Red Cell Distribution Width 12.6 % (11.5-17.5)
[2021-11-29 13:22] LABS: Amphetamine/Metha Screen,Urine Negative ng/ml (<1000); Microalbumin/Creatinine Ratio 33.8
[2021-11-29 13:23] LABS: Barbiturates Screen,Urine Negative ng/ml (<200); Benzodiazepines Screen,Urine Negative ng/ml (<200)
[2021-11-29 13:24] LABS: Cannabinoid Screen,Urine Negative ng/ml (<50); Creatinine,Urine Random 21 mg/dL (Not Estab.); Hemoglobin A1C 5.2 % (4.0-6.0)
[2021-11-29 13:25] LABS: Cocaine Screen,Urine Negative ng/ml (<300); Methadone Screen,Urine Negative ng/ml (<300)
[2021-11-29 13:26] LABS: Opiate Screen,Urine Positive ng/ml (<300)
[2021-11-29 13:27] LABS: Phencyclidine Screen,Urine Negative ng/ml (<25)
[2021-11-29 13:52] LABS: Alanine Aminotransferase 24 U/L (12-78); Albumin Level 4.1 g/dl (3.5-5.0); Albumin/Globulin Ratio 1.6 (1.1-1.8); Alkaline Phosphatase 170 U/L (38-126); Anion Gap 11.1 mEq/L (5-15); Aspartate Amino Transferase 31 U/L (14-36); Bilirubin,Total 0.2 mg/dl (0.2-1.3); Blood Urea Nitrogen 28 mg/dl (7-17); Carbon Dioxide 29 mmol/L (22.0-30.0); Chloride 101 mmol/L (98-107); Chol/HDL Ratio 3.8 (1-3.5); Cholesterol 214 mg/dl (140-200); Estimated Glomerular Filt Rate 34 ml/min (>60); GFR (African American) 41 ML/MIN (>60); Globulin 2.5 g/dL (1.3-3.2); Glucose 98 mg/dl (74-100); HDL Cholesterol 56 mg/dl (40-60); Potassium 5.1 mmoL/L (3.5-5.1); Sodium 136 mmol/L (136-145); Total Protein,Serum 6.6 g/dl (6.3-8.2); Triglycerides 147 mg/dl (30-150); VLDL Cholesterol 29 mg/dL (0-40)
[2021-11-29 13:56] LABS: C-Reactive Protein 9.9 mg/L (0-4)
[2021-11-29 14:08] LABS: 25-OH Vitamin D, Total 34.6 ng/mL (30-100)
[2021-11-29 14:16] LABS: Erythrocyte Sedimentation Rate 13 mm/hr (0-20)
[2021-11-29 14:24] LABS: Thyroid Stimulating Hormone 1.93 uIU/mL (0.465-4.68)
[2021-11-29 14:43] LABS: Vitamin B12 583 pg/mL (239-931)
[2021-11-29 14:59] LABS: Vitamin B12 565 pg/mL (239-931)
[2021-11-29 15:11] LABS: Folate 4.89 ng/mL
[2021-12-01 14:57] LABS: Direct LDL Cholesterol 118 mg/dL (100-129)
== END ==
PROVIDERS: Podiatrist; PCP Nurse Practitioner Family; Visit Provider Nurse Practitioner Family
DX: E11.9 Type 2 diabetes mellitus without complications (principal); G80.9 Cerebral palsy, unspecified; N18.1 Chronic kidney disease, stage 1; E66.9 Obesity, unspecified; Z68.41 Body mass index [BMI] 40.0-44.9, adult; Z79.891 Long term (current) use of opiate analgesic
CPT/HCPCS: 36415; 80053; 80061; 80305; 82043; 82306; 82570; 82607; 82746; 83036; 84443; 85025; 85651; 86140

== ENCOUNTER → 2022-08-16 13:56 | Outpatient (CLI) | payer OTHER, SELFPAY ==
[2022-08-16 16:31] VITALS: BMI 39.1
[2022-08-16 16:40] LABS: Coronavirus 19, PCR Not Detected (NotDetected); Influenza A, PCR Not Detected (NotDetected); Influenza B, PCR Not Detected (NotDetected)
== END ==
PROVIDERS: PCP Internal Medicine Adolescent Medicine; Visit Provider Nurse Practitioner Family
DX: Z20.822 Contact with and (suspected) exposure to COVID-19 (principal)
CPT/HCPCS: 87635; 87636; C9803; U0003; U0005

== ENCOUNTER → 2022-10-03 08:21 | Outpatient (CLI) | payer OTHER, SELFPAY ==
--- NOTE | 2022-10-03 08:24 | MR_ITS ---
FINAL REPORT CLINICAL HISTORY: PAIN IN LEFT KNEE. SWELLING ANTERIOR SURFACE. PAIN ON LATERAL SIDE OF KNEE THAT RADIATES DOWN LEG. FINDINGS: Multiplanar MR imaging of the left knee was performed without contrast. Motion artifact is identified on many of the images. There is medial meniscal degeneration with a tear of the posterior horn. The lateral meniscus is intact. The anterior and posterior cruciate ligaments are intact. The medial collateral ligament and lateral ligamentous complex are intact. The patellar and quadriceps tendons are intact. There are moderate to severe degenerative changes with severe medial and patellofemoral chondromalacia. There are small osteochondral lesions of the medial femoral condyle and medial tibial plateau. There is also an osteochondral lesion of the fibular head. There is an area of osteonecrosis and lateral femoral condyle measuring 14 mm. There is a 14 mm loose body lateral to the suprapatellar bursa. No significant joint effusion is seen. The musculature is intact. IMPRESSION: Tear posterior horn medial meniscus. Degenerative change and chondromalacia. Osteochondral lesions as discussed above. Loose body lateral to the suprapatellar bursa. Osteonecrosis of the lateral femoral condyle. Reviewed, Interpreted and Dictated by Jerome Alvarez III, MD Transcribed by Mony Zee Authenticated and [facility]
== END ==
PROVIDERS: PCP Internal Medicine Adolescent Medicine; Visit Provider Internal Medicine Adolescent Medicine
DX: M25.562 Pain in left knee (principal)
CPT/HCPCS: 73721

== ENCOUNTER → 2022-10-16 09:26 | Outpatient (CLI) | payer OTHER, SELFPAY ==
--- NOTE | 2022-10-16 09:30 | XR_ITS ---
FINAL REPORT CLINICAL HISTORY: Lt knee pain, no injury known FINDINGS: LEFT KNEE SERIES Five views of the left knee were obtained. There is no acute fracture or dislocation. There is moderate to severe tricompartmental degenerative disease. The findings are most pronounced within the medial compartment and patellofemoral joint. There is no significant joint effusion. IMPRESSION: No acute abnormality. Reviewed, Interpreted and Dictated by Zohra Sloan MD Transcribed by Lucho Blackburn Authenticated and [facility]
== END ==
PROVIDERS: PCP Internal Medicine Adolescent Medicine; Visit Provider Orthopaedic Surgery
DX: M25.562 Pain in left knee (principal)
CPT/HCPCS: 73562

== ENCOUNTER 2022-11-01 16:30 | Outpatient (RCR) | payer OTHER, SELFPAY ==
--- NOTE | 2022-11-01 18:22 | HMH.PTOPEV ---
PT Outpatient Evaluation Rehab PT Outpatient Evaluation Start: 11/01/22 17:00 Freq: Status: Active Protocol: Document 11/01/22 17:01 NAVEEN (Rec: 11/01/22 18:22 NAVEEN [id number]) E-signed By Kathryn Tao, PT Outpatient Therapy Subjective History Subjective History Pt is a 51 y/o female who reports insidious onset of L knee pain in July of 2017. Pt reports this is whens he first had imaging to reveal a medial mensicus tear which took 1 year to heal and improve without surgical intervention. Pt reports recent re-exacerbation of pain a bout 1 month ago without known trauma or injury. Pt had a knee MRI on 10/03/22 with impression of Tear posterior horn medial meniscus. Degenerative change and chondromalacia. Osteochondral lesions as discussed above. Loose body lateral to the suprapatellar bursa. Osteonecrosis of the lateral femoral condyle. Pt reports she was recently prescribed Celebrex for pain last which has helped a lot. Pt reports she continues to have stiffness of the knee in the mornings and when sedentary. Pt reports pain of the L knee is usually on the medial aspect of the joint with intermittent posterior knee pain. Pt reports pain is aggravated with traversing stairs, getting in/out of her husbands truck, and often with walking. Pt reports she lives in a 3 story home so she has to traverse stairs multiple times a day. Pt reports intermittent catching sensations of the knee and only one instance of the knee locking when she was sitting with the knee bent awkwardly. Joe padron
== END 2022-11-01 16:35 | disposition home or self-care (01) ==
LOC: PT 16:30
PROVIDERS: PCP Internal Medicine Adolescent Medicine; Visit Provider Orthopaedic Surgery
DX: M25.562 Pain in left knee (principal); S83.242A Other tear of medial meniscus, current injury, left knee, initial encounter; M23.42 Loose body in knee, left knee; M87.852 Other osteonecrosis, left femur
CPT/HCPCS: 97110; 97163

== ENCOUNTER 2022-12-17 10:26 | Emergency (ER) | payer OTHER, SELFPAY ==
[2022-12-17 10:28] VITALS: BP 140/87; PULSE 91; RESP 21; TEMP 36.6; O2SAT 98; BMI 46.2
--- NOTE | 2022-12-17 10:40 | PC.NURSE ---
MD notified of pt concerns and sever pain. No verbal orders received at this time.
--- NOTE | 2022-12-17 11:16 | PC.NURSE ---
Dr. Nieto at [facility]
--- NOTE | 2022-12-17 11:20 | CT_ITS ---
PROCEDURE INFORMATION: Exam: CT Lumbar Spine Without Contrast Exam date and time: 12/17/2022 11:45 AM Age: 52 years old Clinical indication: Injury or trauma; Fall; Blunt trauma (contusions or hematomas); Additional info: Midline back pain following fall TECHNIQUE: Imaging protocol: Computed tomography of the lumbar spine without contrast. Radiation optimization: All CT scans at this facility use at least one of these dose optimization techniques: automated exposure control; mA and/or kV adjustment per patient size (includes targeted exams where dose is matched to clinical indication); or iterative reconstruction. REPORTING DATA: Count of CT and Cardiac NM exams in prior 12 months: This patient has received 0 known CTs and 0 known cardiac nuclear medicine studies in the 12 months prior to the current study. COMPARISON: MR LUMBAR SPINE WO CON 02/21/2021 4:50 PM FINDINGS: Bones/joints: No acute fracture or subluxation. Degenerative changes of the spine and sacroiliac joints. Soft tissues: Unremarkable. IMPRESSION: 1. No acute fracture or subluxation. 2. Degenerative changes of the spine and sacroiliac joints.
--- NOTE | 2022-12-17 11:20 | XR_ITS ---
PROCEDURE INFORMATION: Exam: XR Left Wrist Exam date and time: 12/17/2022 12:04 PM Age: 52 years old Clinical indication: Patient HX: Left wrist pain after fall; Additional info: Fall, injury TECHNIQUE: Imaging protocol: Radiologic exam of the left wrist. Views: 3 or more views. COMPARISON: CR XR HAND LT MIN 3V 08/23/2019 3:23 PM FINDINGS: Bones/joints: No acute fracture or dislocation. Moderate degenerative change of the 1st carpal metacarpal joint. Soft tissues: Normal. IMPRESSION: 1. No acute fracture or dislocation. 2. Moderate degenerative change of the 1st carpal metacarpal joint.
--- NOTE | 2022-12-17 11:25 | HMH.EDGENADL ---
Discharge Plan Disposition Patient Disposition: Home, Self-Care Prescriptions Prescriptions: New cyclobenzaprine 10 mg tablet 10 mg PO TID PRN (Reason: muscle spasm) 5 Days Qty: 15 0RF ibuprofen 800 mg tablet 800 mg PO TID PRN (Reason: pain) 7 Days Qty: 20 0RF No Action tizanidine 4 mg tablet 4 mg PO duloxetine 60 mg capsule,delayed release(DR/EC) 60 mg PO DAILY Patient Comments: TAKE ONE CAPSULE BY MOUTH EVERY DAY furosemide 40 mg tablet 40 mg PO PRN Mounjaro 5 mg/0.5 mL pen injector 5 mg SQ WEEKLY Patient Comments: INJECT 0.5 ML (5mg) SUBCUTANEOUSLY ONCE a WEEK diclofenac sodium 75 mg tablet,delayed release (DR/EC) 75 mg PO BID Patient Comments: TAKE ONE TABLET BY MOUTH TWICE DAILY FOR PAIN --TAKE WITH FOOD-- ibuprofen 800 mg tablet 800 mg PO PRN celecoxib [Celebrex] 200 mg capsule 200 mg PO BID Qty: 60 2RF Rx Instructions: take BID for a month then once per day. duloxetine 30 MG capsule,delayed release(DR/EC) 30 mg PO DAILY empagliflozin 25 MG tablet 25 mg PO DAILY hydrocodone-acetaminophen 5-325 mg tablet 1 tab PO BID PRN (Reason: Pain) gabapentin 800 MG tablet 800 mg PO TID Qty: 60 0RF Rx Instructions: 1-2 tabs tid prn foot burning mupirocin 2 % ointment 1 applic topical TID 7 Days Qty: 15 0RF Referrals Follow up/Referrals: Robert Cain MD [Primary Care Provider] - See instructions Clinical Impressions Clinical Impression: Fall, Hematoma of face, Left wrist sprain, Lumbar strain Discharge ED Provider: Aurora Nieto General Adult [facility] General Chief complaint: Fall Stated complaint: AO 10:00 sever back pain left wrist pain hit head Time Seen by Provider: 12/17/22 10:56 Mode of Arrival: Wheelchair Source of Information: Patient Limitations: No Limitations Description of Symptoms (Recalled from ER Triage Doc. by RN): Pt presents to ER after falling into her vanity after tripping incident. She c/o pain to L eye brow, left side of head, left wrist, and low back. Pt reports the worst pain is in her low back. She denies any LOC. Denies any previous back injury or surgery. She has diabetes and neuropathy reports parathesia BLE. Denies any saddle area numbness or incontinence since fall. States the pain is so bad it hurts to breathe . Denies any blood thinners. History of Present Illness HPI narrative: Patient is a 52-year-old female who was getting ready for rastafari this morning she was wearing high heels and she tripped over a blanket that was on the floor falling forward hitting the front of her face onto a vanity hurting her left wrist as well as her lower back. She states that the superior orbital aspect of the left eye is not significantly painful she has a low bit of swelling she has no headache no changes in mental status not on any anticoagulants. She has some pain in the left wrist and her maximal pain is in her lower back mainly in the paraspinal region of the lumbar spine but has midline pain. No lower extremity symptoms including weakness no saddle anesthesia urinary retention urinary or bowel incontinence or other complaints. Related Data Home Medications Medication Instructions Recorded Confirmed duloxetine 30 mg capsule,delayed 30 mg PO DAILY Pain 03/16/21 12/12/22 release empagliflozin 25 mg tablet 25 mg PO DAILY blood sugar 03/31/21 12/12/22 tizanidine 4 mg tablet 4 mg PO 11/08/21 12/12/22 diclofenac sodium 75 mg 75 mg PO BID 07/24/22 12/12/22 tablet,delayed release duloxetine 60 mg capsule,delayed 60 mg PO DAILY 07/24/22 12/12/22 release furosemide 40 mg tablet 40 mg PO PRN 07/24/22 12/12/22 hydrocodone 5 mg-acetaminophen 325 1 tab PO BID PRN Pain 07/24/22 12/12/22 mg tablet ibuprofen 800 mg tablet 800 mg PO PRN 07/24/22 12/12/22 tirzepatide 5 mg/0.5 mL 5 mg SQ WEEKLY 07/24/22 12/12/22 subcutaneous pen injector (Micah) Previous Rx's Medicatio
[2022-12-17 13:12] VITALS: BP 157/94; PULSE 70; RESP 17; TEMP 36.6; O2SAT 95
== END 2022-12-17 13:12 | disposition home or self-care (01) ==
PROVIDERS: Emergency Provider Student in an Organized Health Care Education/Training Program; PCP Internal Medicine Adolescent Medicine
DX: S00.12XA Contusion of left eyelid and periocular area, initial encounter (principal); S63.502A Unspecified sprain of left wrist, initial encounter; S39.012A Strain of muscle, fascia and tendon of lower back, initial encounter; E11.40 Type 2 diabetes mellitus with diabetic neuropathy, unspecified; F41.9 Anxiety disorder, unspecified; J45.909 Unspecified asthma, uncomplicated; F32.A Depression, unspecified; I10 Essential (primary) hypertension; N28.9 Disorder of kidney and ureter, unspecified; W01.198A Fall on same level from slipping, tripping and stumbling with subsequent striking against other object, initial encounter
CPT/HCPCS: 72131; 73110; 96374; 96375; 99284; J2405

== ENCOUNTER → 2022-12-20 16:54 | Outpatient (CLI) | payer OTHER, SELFPAY ==
--- NOTE | 2022-12-20 17:01 | XR_ITS ---
PROCEDURE INFORMATION: Exam: XR Left Wrist Exam date and time: 12/20/2022 5:06 PM Age: 52 years old Clinical indication: Pain; Wrist; Left; Additional info: Injury from fall. Radial side pain from fall on Sunday TECHNIQUE: Imaging protocol: Radiologic exam of the left wrist. Views: 3 or more views. COMPARISON: CR XR WRIST LT MIN 3V 12/17/2022 12:04 PM FINDINGS: Bones/joints: Findings concerning for hairline fracture of the radial styloid are not well demonstrated on this study. No other findings suspicious for acute fracture. Severe degenerative changes of the trapezial metacarpal joint noted. Soft tissues: Normal. IMPRESSION: Suspected hairline fracture of the radial styloid seen on hand film from the same day not well demonstrated on these images. Severe degenerative changes of the trapezial metacarpal joint noted
--- NOTE | 2022-12-20 17:05 | XR_ITS ---
PROCEDURE INFORMATION: Exam: XR Left Hand Exam date and time: 12/20/2022 5:06 PM Age: 52 years old Clinical indication: Pain; Hand; Left; Additional info: Injury from fall. 1st digit pain from fall on Sunday TECHNIQUE: Imaging protocol: Radiologic exam of the left hand. Views: 3 or more views. COMPARISON: CR XR HAND LT MIN 3V 08/23/2019 3:23 PM FINDINGS: Bones/joints: Severe degenerative changes at the trapezial metacarpal joint. Subtle linear lucency of the radial styloid compatible with nondisplaced intra-articular fracture. No other findings suspicious for acute fracture. Osseous alignment appears normal. Soft tissues: Normal. IMPRESSION: Hairline intra-articular fracture of the radial styloid. Severe degenerative changes of the trapezial metacarpal joint.
== END ==
PROVIDERS: PCP Internal Medicine Adolescent Medicine; Visit Provider Nurse Practitioner Family
DX: M25.532 Pain in left wrist (principal); T14.8XXA Other injury of unspecified body region, initial encounter; W19.XXXA Unspecified fall, initial encounter
CPT/HCPCS: 73110; 73130

== ENCOUNTER → 2022-12-21 09:57 | Outpatient (CLI) | payer OTHER, SELFPAY ==
--- NOTE | 2022-12-21 10:04 | XR_ITS ---
FINAL REPORT CLINICAL HISTORY: Back pain after a fall FINDINGS: THORACIC SPINE 2 views were obtained. There is no acute fracture. There is no malalignment. There is multilevel degenerative disc disease. There is no soft tissue abnormality. IMPRESSION: No acute bony abnormality. Reviewed, Interpreted and Dictated by Taylor Trujillo MD Transcribed by Shavonne Alston Authenticated and [facility]
--- NOTE | 2022-12-21 10:04 | XR_ITS ---
FINAL REPORT CLINICAL HISTORY: FALL, bilateral pain FINDINGS: BILATERAL RIBS WITH CHEST A single PA view of the chest and three views of the bilateral ribs were obtained. The heart and mediastinum within normal limits. The lungs are clear. There is no pneumothorax. There is no acute displaced rib fracture. IMPRESSION: No displaced rib fracture. No pneumothorax. Reviewed, Interpreted and Dictated by Taylor Trujillo MD Transcribed by Shavonne Alston Authenticated and [facility]
== END ==
PROVIDERS: PCP Internal Medicine Adolescent Medicine; Visit Provider Internal Medicine Adolescent Medicine
DX: M54.6 Pain in thoracic spine (principal); R07.81 Pleurodynia
CPT/HCPCS: 71111; 72072

== ENCOUNTER 2022-12-21 14:29 | Outpatient (RCR) | payer OTHER, SELFPAY | END 2022-12-21 16:00 | disposition home or self-care (01) | LOC: OT 14:29 | PROVIDERS: Visit Provider Orthopaedic Surgery | DX: S52.502A Unspecified fracture of the lower end of left radius, initial encounter for closed fracture (principal) | CPT/HCPCS: 97763 ==

== ENCOUNTER → 2023-01-08 14:51 | Outpatient (POV) | payer OTHER, SELFPAY ==
--- NOTE | 2023-01-08 15:26 | EXP.PAIN.SOA ---
[facility] Pain Management SOAP Note Subjective:: Patient is a pleasant 52-year-old female who presents today for follow-up. We are currently treating the patient for degenerative disc disease of lumbar spine with lumbar radiculopathy symptoms. Today she rates her pain a 10 out of 10. Patient states approximately 3 weeks ago she had a fall in and around her bedroom/bathroom. Patient states that she felt like her sugar dropped and she lost her balance. Patient states that she did fall twisting her low back in an awkward position. She did end up having a black eye and a fractured wrist. Patient does believe that she has pulled something in her lower back and that certain positioning makes her pain worse. She does state the pain is aggravated with increased activity or motion such as bending, twisting or lifting. Patient is interested in any help we may be able to provide. Her Wilfrid is [id number]. Its been reviewed and appropriate. Review of Systems: General: No recent weight changes, no fever, no sleep disturbances Respiratory: No cough, no shortness of air, no recurring pulmonary infections Cardiovascular/peripheral vascular: No chest pain, no palpitations, no edema, no shortness of breath Gastrointestinal: No new onset incontinence, normal bowel movements reported Genitourinary: No new onset incontinence Musculoskeletal: Low back pain Psychiatric: [Normal mood/affect] Neurological: [Denies weakness in extremities], [denies balance issues] Objective:: Physical Exam: General: Alert and oriented x3, no acute distress, pleasant and cooperative Lungs: Respirations even and unlabored, symmetrical chest expansion Eyes: PERRL Musculoskeletal: Flexion and extension of lumbar [spine] somewhat guarded secondary to pain, positive Kemps test Neurological: Speech clear, no gross sensory deficit Assessment:: Degenerative disc disease of lumbar spine with lumbar radiculopathy symptoms Plan:: Patient is experiencing worsening pain in her low back with limited range of motion. I have discussed with the patient that she may benefit from a lumbar medial branch block in the future. Risk and benefits were discussed with the patient however at this time she would like to wait. I will order the patient prednisone 20 mg twice daily and provide a 5-day supply of this medication along with methocarbamol 500 mg twice daily with a 14-day supply. Patient will return to clinic in 2 weeks for reevaluation of symptoms and plan of care. Patient has been instructed to contact the clinic with any concerns before the next appointment. Dr. Kang has reviewed this note and agrees with this plan of care. This note was dictated using voice recognition software and make contain errors or omissions. [facility] Disclaimer: The information contained in this section may have been updated after the patient was seen, as this information can be updated by other users. Medical History Anxiety Arthritis Asthma Depression HTN (hypertension), benign Kidney disorder T2DM (type 2 diabetes mellitus) Surgical History Hx of tonsillectomy Social History Smoking Status: Never smoker alcohol intake: never substance use type: denies use current occupational status: employed Travel in the last 8 weeks: None household members: other housing: house caffeine: Yes
[2023-01-08 15:48] VITALS: BP 121/82; PULSE 92; RESP 18; O2SAT 95; BMI 46.2
== END | disposition home or self-care (01) ==
PROVIDERS: PCP Internal Medicine Adolescent Medicine; Visit Provider Nurse Practitioner Family
DX: M51.16 Intervertebral disc disorders with radiculopathy, lumbar region (principal)
CPT/HCPCS: 99212; G0463

== ENCOUNTER → 2023-01-17 09:12 | Outpatient (CLI) | payer OTHER, SELFPAY ==
--- NOTE | 2023-01-17 09:18 | XR_ITS ---
FINAL REPORT CLINICAL HISTORY: lt wrist pain COMPARISON: 12/20/2022 FINDINGS: LEFT WRIST Three views demonstrate no acute fracture or dislocation. There is severe degenerative change noted at the first carpometacarpal articulation, with mild degenerative change elsewhere in the wrist. There is a loose body measuring 6 mm lateral to the first metacarpal carpal articulation. The soft tissues are unremarkable. IMPRESSION: Severe degenerative change of the first CMC joint, with mild degenerative change elsewhere in the wrist. There is a loose body lateral to the first CMC joint as described. Reviewed, Interpreted and Dictated by Jerome Alvarez III, MD Transcribed by Mirna Alfred Authenticated and [facility]
== END ==
PROVIDERS: PCP Internal Medicine Adolescent Medicine; Visit Provider Orthopaedic Surgery
DX: S52.515A Nondisplaced fracture of left radial styloid process, initial encounter for closed fracture (principal); Y99.9 Unspecified external cause status
CPT/HCPCS: 73110

== ENCOUNTER 2023-01-24 08:34 | Emergency (ER) | payer OTHER, SELFPAY ==
[2023-01-24 08:45] VITALS: BP 175/115; PULSE 94; RESP 22; TEMP 37; O2SAT 96; BMI 46.6
--- NOTE | 2023-01-24 08:51 | EXP.UTC ---
Discharge Plan Disposition Patient Disposition: Home, Self-Care Condition: Good Prescriptions Prescriptions: New methylprednisolone [Medrol (West)] 4 mg tablets,dose pack See Rx Instructions .Route .COMPLEX 6 Days Qty: 21 0RF Rx Instructions: taper pack; No Action tizanidine 4 mg tablet 4 mg PO DIRECTED duloxetine 60 mg capsule,delayed release(DR/EC) 60 mg PO DAILY Patient Comments: TAKE ONE CAPSULE BY MOUTH EVERY DAY furosemide 40 mg tablet 40 mg PO DAILY Mounjaro 5 mg/0.5 mL pen injector 5 mg SQ WEEKLY Patient Comments: INJECT 0.5 ML (5mg) SUBCUTANEOUSLY ONCE a WEEK diclofenac sodium 75 mg tablet,delayed release (DR/EC) 75 mg PO BID Patient Comments: TAKE ONE TABLET BY MOUTH TWICE DAILY FOR PAIN --TAKE WITH FOOD-- celecoxib [Celebrex] 200 mg capsule 200 mg PO BID Qty: 60 2RF Rx Instructions: take BID for a month then once per day. duloxetine 30 MG capsule,delayed release(DR/EC) 30 mg PO DAILY empagliflozin 25 MG tablet 25 mg PO DAILY hydrocodone-acetaminophen 5-325 mg tablet 1 tab PO BID PRN (Reason: Pain) cyclobenzaprine 10 mg tablet 10 mg PO TID PRN (Reason: muscle spasm) 5 Days Qty: 15 0RF ibuprofen 800 mg tablet 800 mg PO TID PRN (Reason: pain) 7 Days Qty: 20 0RF methocarbamol 500 mg tablet 500 mg PO BID Qty: 28 0RF prednisone 20 mg tablet 20 mg PO BID Qty: 10 0RF gabapentin 800 MG tablet 800 mg PO TID Qty: 60 0RF Rx Instructions: 1-2 tabs tid prn foot burning Referrals Follow up/Referrals: Robert Cain MD [Primary Care Provider] - See instructions Activity Restrictions/Add. Instructions Additional Instructions/Restrictions: Start oral steriods tomorrow Continue to take over the counter Benadryl as directed on package Follow up immediately if any worsening of swelling, shortness of breath or trouble swallowing Straight to ER if any life threatening symptoms Clinical Impressions Clinical Impression: Allergic reaction Qualifiers: Encounter type: initial encounter Qualified Code(s): T78.40XA - Allergy, unspecified, initial encounter Instructions Patient Instructions: DI for General Allergic Reactions Discharge ED Provider: Rachael Nunez [facility] General Stated complaint: possible allergic reaction, swollen lip Mode of Arrival: Ambulatory Source of Information: Patient Limitations: No Limitations Time Seen by Provider: 01/24/23 08:51 Description of Symptoms (Recalled from Triage Doc. by RN): PATIENT C/O SWELLING TO RIGHT LOWER LIP HEENT Symptoms (Recalled from RN notes): Yes Resp Symptoms (Recalled from RN notes): No Skin Symptoms (Recalled from RN notes): No MS Symptoms (Recalled from RN notes): No Functional Status (Recalled from RN notes): WNL History of Present Illness Provider Complaint: Patient states that she thinks she is having an allergic reaction States that she took flu shot yesterday and eat some water melon last night and not sure what she may be having an allergic reaction too States that this morning the right side of her lip is swollen and she has taken benadryl but not helped much States that she is a diabetic but it is well controlled Denies trouble breathing or swallowing denies feeling of swelling in throat Related Data Home Medications Medication Instructions Recorded Confirmed duloxetine 30 mg capsule,delayed 30 mg PO DAILY Pain 03/16/21 01/18/23 release empagliflozin 25 mg tablet 25 mg PO DAILY blood sugar 03/31/21 01/18/23 tizanidine 4 mg tablet 4 mg PO DIRECTED Pain 11/08/21 01/18/23 diclofenac sodium 75 mg 75 mg PO BID 07/24/22 01/18/23 tablet,delayed release duloxetine 60 mg capsule,delayed 60 mg PO DAILY 07/24/22 01/18/23 release furosemide 40 mg tablet 40 mg PO DAILY Fluid 07/24/22 01/18/23 hydrocodone 5 mg-acetaminophen 325 1 tab PO BID PRN Pain 07/24/22 01/18/23 mg tablet tirzepatide 5 mg/0.5 mL 5 mg SQ WEEKL
[2023-01-24 08:53] VITALS: BP 139/81
[2023-01-24 09:26] VITALS: BP 139/81; PULSE 94; RESP 22; TEMP 37; O2SAT 96
== END 2023-01-24 09:40 | disposition home or self-care (01) ==
PROVIDERS: Emergency Provider Nurse Practitioner; PCP Internal Medicine Adolescent Medicine
DX: T78.40XA Allergy, unspecified, initial encounter (principal); R22.0 Localized swelling, mass and lump, head; I10 Essential (primary) hypertension; E11.9 Type 2 diabetes mellitus without complications; J45.909 Unspecified asthma, uncomplicated; F32.A Depression, unspecified; Z79.84 Long term (current) use of oral hypoglycemic drugs
CPT/HCPCS: 96372; 99204; 99212; G0463

== ENCOUNTER → 2023-01-25 12:01 | Outpatient (POV) | payer OTHER, SELFPAY ==
--- NOTE | 2023-01-25 12:05 | EXP.PAIN.SOA ---
[facility] Pain Management SOAP Note Subjective:: Patient is a pleasant 52-year-old female who presents today for follow-up. We are currently treating the patient for degenerative disc disease of lumbar spine with lumbar radiculopathy symptoms. Today she rates her pain a 3 out of 10. She does state from our last visit where she was prescribed a 5-day dose of prednisone and methocarbamol 500 mg twice a day that it has significantly improved her pain. Her pain was all related to a recent fall. She denies any new trauma or injury. She does state that occasionally certain movements in her low back will cause worsening pain such as bending, twisting or lifting however it is very manageable. She does state today that she does have bad neuropathy into her bilateral feet that bother her on a regular basis. She states that she has been to Dr. Zuniga in the past who did do multiple injections however these did not work as well. Patient does state that this interferes with her ability perform activities of daily living such as cooking and cleaning. She states at the end of the day she is in so much pain related to the numbness and tingling and feeling like there is a large knot on the medial portion of her foot. She does state that her right foot is worse than the left. She is interested in any help we may be able to provide for this issue. Her Wilfrid has been reviewed and is appropriate. Review of Systems: General: No recent weight changes, no fever, no sleep disturbances Respiratory: No cough, no shortness of air, no recurring pulmonary infections Cardiovascular/peripheral vascular: No chest pain, no palpitations, no edema, no shortness of breath Gastrointestinal: No new onset incontinence, normal bowel movements reported Genitourinary: No new onset incontinence Musculoskeletal: Bilateral feet pain/numbness tingling Psychiatric: [Normal mood/affect] Neurological: [Denies weakness in extremities], [denies balance issues] Objective:: Physical Exam: General: Alert and oriented x3, no acute distress, pleasant and cooperative Lungs: Respirations even and unlabored, symmetrical chest expansion Eyes: PERRL Musculoskeletal: Flexion and extension of lumbar [spine] somewhat guarded secondary to pain, [antalgic gait noted] Neurological: Speech clear, no gross sensory deficit Assessment:: Degenerative disc disease of lumbar spine with lumbar radiculopathy symptoms Plan:: Patient is experiencing chronic neuropathy in her bilateral feet and chronic pain. I have discussed with the patient that she may benefit from a nerve block. Risk and benefits were discussed with the patient and she would like to proceed forward with this plan of care. I will also order the patient a compounded cream. Patient will be scheduled for a right saphenous nerve block. Patient has been instructed to contact the clinic with any concerns before the next appointment. Dr. Kang has reviewed this note and agrees with this plan of care. This note was dictated using voice recognition software and make contain errors or omissions. [facility] Disclaimer: The information contained in this section may have been updated after the patient was seen, as this information can be updated by other users. Medical History Anxiety Arthritis Asthma Depression HTN (hypertension), benign Kidney disorder T2DM (type 2 diabetes mellitus) Surgical History Hx of tonsillectomy Social History Smoking Status: Never smoker alcohol intake: never substance use type: denies use current occupational status: employed Travel in the last 8 weeks: None household members: other housing: house caffeine: Yes
[2023-01-25 12:33] VITALS: BP 123/76; PULSE 87; RESP 18; O2SAT 96; BMI 46.6
== END ==
PROVIDERS: PCP Nurse Practitioner Family; Visit Provider Nurse Practitioner Family
DX: M51.16 Intervertebral disc disorders with radiculopathy, lumbar region (principal); G57.83 Other specified mononeuropathies of bilateral lower limbs; G89.29 Other chronic pain
CPT/HCPCS: 99212; G0463

== ENCOUNTER 2023-02-09 08:05 | Emergency (ER) | payer OTHER, SELFPAY ==
[2023-02-09 08:25] VITALS: BP 129/76; PULSE 114; RESP 20; TEMP 37.2; O2SAT 95; BMI 46.6
[2023-02-09 08:39] LABS: Influenza A, PCR Not Detected (NotDetected); Influenza B, PCR Not Detected (NotDetected)
--- NOTE | 2023-02-09 08:48 | EXP.UTC ---
Discharge Plan Disposition Patient Disposition: Home, Self-Care Condition: Good Prescriptions Prescriptions: New ondansetron 4 mg tablet,disintegrating 4 mg PO Q8H PRN (Reason: nausea and vomiting) Qty: 10 0RF No Action tizanidine 4 mg tablet 4 mg PO DIRECTED duloxetine 60 mg capsule,delayed release(DR/EC) 60 mg PO DAILY Patient Comments: TAKE ONE CAPSULE BY MOUTH EVERY DAY furosemide 40 mg tablet 40 mg PO DAILY Mounjaro 5 mg/0.5 mL pen injector 5 mg SQ WEEKLY Patient Comments: INJECT 0.5 ML (5mg) SUBCUTANEOUSLY ONCE a WEEK diclofenac sodium 75 mg tablet,delayed release (DR/EC) 75 mg PO BID Patient Comments: TAKE ONE TABLET BY MOUTH TWICE DAILY FOR PAIN --TAKE WITH FOOD-- celecoxib [Celebrex] 200 mg capsule 200 mg PO BID Qty: 60 2RF Rx Instructions: take BID for a month then once per day. duloxetine 30 MG capsule,delayed release(DR/EC) 30 mg PO DAILY empagliflozin 25 MG tablet 25 mg PO DAILY hydrocodone-acetaminophen 5-325 mg tablet 1 tab PO BID PRN (Reason: Pain) cyclobenzaprine 10 mg tablet 10 mg PO TID PRN (Reason: muscle spasm) 5 Days Qty: 15 0RF ibuprofen 800 mg tablet 800 mg PO TID PRN (Reason: pain) 7 Days Qty: 20 0RF methocarbamol 500 mg tablet 500 mg PO BID Qty: 28 0RF gabapentin 800 MG tablet 800 mg PO TID Qty: 60 0RF Rx Instructions: 1-2 tabs tid prn foot burning Referrals Follow up/Referrals: Robert Cain MD [Primary Care Provider] - See instructions Activity Restrictions/Add. Instructions Additional Instructions/Restrictions: *Monitor Temp, Over the counter Motrin or Tylenol as directed/as needed Tylenol every 4 hours and Motrin every 6 hours (as long as your family doctor has told you that you can take it) for fever or pain. and straight to ER if unable to lower temp less than 101.0 after medication given *Warm salt water gargles may help to soothe the throat *Throat Lozenges? *Warm fluids like tea with honey may help to soothe the throat? *Sleep elevated *Humidifier/Vaporizer Follow up IMMEDIATELY for new or worsening symptoms or no Noticeable improvement over the next 48-72 hours. 911 for difficulty breathing or swallowing Clinical Impressions Clinical Impression: COVID-19 Stand Alone Forms Stand Alone Forms: Work/School Release Instructions Patient Instructions: REZA Gudino for COVID-19 (Suspected or Confirmed ) Discharge ED Provider: Rachael Nunez [facility] [place] HPI General Stated complaint: covid exposure, congested, dizzy,sore throat Mode of Arrival: Ambulatory Source of Information: Patient Limitations: No Limitations Time Seen by Provider: 02/09/23 08:49 Description of Symptoms (Recalled from Triage Doc. by RN): PATIENT C/O BODY ACHES, COUGH, AND NOT FEELING GOOD SINCE YESTERDAY AFTERNOON. RECENTLY EXPOSED TO COVID HEENT Symptoms (Recalled from RN notes): No Resp Symptoms (Recalled from RN notes): Yes Skin Symptoms (Recalled from RN notes): No MS Symptoms (Recalled from RN notes): No Functional Status (Recalled from RN notes): WNL History of Present Illness Provider Complaint: Patient states that he daughter tested positive for COVID on Sunday States that yesterday she started feeling bad with bad cough, scratchy throat, body aches, pain and pressure in her ears and headache States that today she was still not feeling well so she came in to get checked Related Data Home Medications Medication Instructions Recorded Confirmed duloxetine 30 mg capsule,delayed 30 mg PO DAILY MOOD 03/16/21 01/25/23 release empagliflozin 25 mg tablet 25 mg PO DAILY blood sugar 03/31/21 01/25/23 tizanidine 4 mg tablet 4 mg PO DIRECTED Pain 11/08/21 01/25/23 diclofenac sodium 75 mg 75 mg PO BID 07/24/22 01/25/23 tablet,delayed release duloxetine 60 mg capsule,delayed 60 mg PO DAILY 07/24/22 01/25/23 release furosemide 40
[2023-02-09 08:50] VITALS: BP 129/76; PULSE 114; RESP 20; TEMP 37.2; O2SAT 95
[2023-02-09 09:03] LABS: Coronavirus 19, PCR Detected (NotDetected)
== END 2023-02-09 09:13 | disposition home or self-care (01) ==
PROVIDERS: Emergency Provider Nurse Practitioner; PCP Internal Medicine Adolescent Medicine
DX: U07.1 COVID-19 (principal); R05.9 Cough, unspecified; R51.9 Headache, unspecified; R07.0 Pain in throat; H92.03 Otalgia, bilateral; J45.909 Unspecified asthma, uncomplicated; E11.9 Type 2 diabetes mellitus without complications; I10 Essential (primary) hypertension; Z79.84 Long term (current) use of oral hypoglycemic drugs; Z79.85 Long-term (current) use of injectable non-insulin antidiabetic drugs
CPT/HCPCS: 87636; 99212; 99214; G0463

== ENCOUNTER → 2023-03-29 15:09 | Outpatient (POV) | payer OTHER, SELFPAY ==
--- NOTE | 2023-03-29 15:17 | A.OFFVIS_ITS ---
[facility] Pain Management SOAP Note Subjective:: Patient is a pleasant 52-year-old female who presents today for follow-up. We are currently treating the patient for degenerative disc disease of lumbar spine with lumbar radiculopathy symptoms, bilateral feet pain. Today she rates her pain a 10 out of 10. She denies any new trauma or injury. Previously she had been scheduled for a right saphenous nerve block due to her continuing right foot pain however she states that she talked to multiple people and they ended up talking her out of having that injection. Patient states she did just have concerns because she has had multiple injections in her feet by the chemical sprayer and none of which have really helped or made her pain any better. Patient does have continued pain with numbness and tingling into her bilateral lower feet. Patient states that she frequently feels like she is dragging her right foot which does increase her stumbling. Patient states there has been several occasions where she is almost fallen due to this. Patient does have concerns that she might even be experiencing right foot drop. Patient denies any swe lling or color change to this extremity. She does state that she frequently has been experiencing almost like a lightening like sensation on the top of her foot that is unrelated to any specific activity or movement and just randomly sends sharp shooting pain. Patient states that it is almost like a contraction like sensation that is severe and makes activities of daily living nearly impossible to do such as cooking or cleaning or even simple ambulation. Patient states that the pain is debilitating and that she is even thought about having to stop working due to this. 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 She is prescribed gabapentin 800 mg 5 times a day from an outside provider and methocarbamol 500 mg twice daily and compounded cream from our office. Patient denies any side effects from these medications. Her Wlifrid has been reviewed and is appropriate. Review of Systems: General: No recent weight changes, no fever, no sleep disturbances Respiratory: No cough, no shortness of air, no recurring pulmonary infections Cardiovascular/peripheral vascular: No chest pain, no palpitations, no edema, no shortness of breath Gastrointestinal: No new onset incontinence, normal bowel movements reported Genitourinary: No new onset incontinence Musculoskeletal: Bilateral feet pain/numbness tingling Psychiatric: [Normal mood/affect] Neurological: [Denies weakness in extremities], [denies balance issues] Objective:: Physical Exam: General: Alert and oriented x3, no acute distress, pleasant and cooperative Lungs: Respirations even and unlabored, symmetrical chest expansion Eyes: PERRL Musculoskeletal: Flexion and extension of lumbar [spine] somewhat guarded secondary to pain, [antalgic gait noted] Neurological: Speech clear, no gross sensory deficit TECHNIQUE: Standard multiplanar multiecho sequences are performed without contrast. 3-D MIP and myelographic images are also rendered and reviewed FINDINGS: Motion artifact noted on every sequence despite repeating the exam. There is normal alignment. Spinal cord ends at the L1 level. Mild degenerative disc disease is present at T10-T11 and T11-T12. L1-L2: Unremarkable. L2-L3: Unremarkable. L3-L4: Mild concentric bulging disc with mild facet and ligamentum hypertrophy with mild bilateral lateral recess narrowing and moderate bilateral foraminal narrowing. L4-5: 3 mm anterolisthesis of L4 on L5 with bulging disc and moderate facet and ligamentum hypertrophy with canal stenosis, bilateral lateral recess narrowing, and moderate bilateral foraminal narrowing. L5-S1: Facet and ligamentum hypertrophy with mild right and moderate left foraminal narrowing. No extruded herniated disc. No fracture or dislocation. IMPRESSION: Multilevel lumbar spondylosis with degenerative disc disease, bulging disc, facet and ligamentum hypertrophy with lateral recess and foraminal narrowing and canal stenosis. Please see above for detailed description at each level. Dictated by: Zane Blandon MD 02/22/2021 08:09 Zane Blandon MD in OV 02/22/2021 08:09 Assessment:: Degenerative disc disease of lumbar spine with lumbar radiculopathy symptoms, bilateral feet pain, lumbar facet arthropathy, lumbar spondylosis, lumbar spinal stenosis Plan:: Patient continues to experience significant pain with numbness and tingling into her bilateral feet. I have discussed with the patient that due to her history of low back issues and still having limited range of motion of her lumbar spine that she may benefit from lumbar epidural steroid injection. I have counseled the patient that some of her pains can be radiating from her lumbar spine. Patient previously did have lumbar MRI back in 2020 that did show multilevel degenerative disc disease with lumbar spondylosis, ligamentum flavum hypertrophy lumbar facet arthropathy and lumbar stenosis. Risk and benefits of the lumbar epidural were explained to the patient and she would like to proceed forward with this plan of care. Patient is not on any blood thinners. I have also counseled the patient if this diagnostic lumbar epidural does not provide any additional improvement of her symptoms I am recommending that we still try the safest nerve block. We will follow-up with this at future visits. Patient will be scheduled for an LESI L4-L5. All epidurals are done under fluoroscopic guidance to confirm accuracy and safety Patient has been instructed to contact the clinic with any concerns before the next appointment. Dr. Kang has reviewed this note and agrees with this plan of care. This note was dictated using voice recognition software and make contain errors or omissions. [facility] Disclaimer: The information contained in this section may have been updated after the patient was seen, as this information can be updated by other users. Medical History Anxiety Arthritis Asthma Depression HTN (hypertension), benign Kidney disorder T2DM (type 2 diabetes mellitus) Surgical History Hx of tonsillectomy Social History Smoking Status: Never smoker alcohol intake: never substance use type: denies use current occupational status: employed Travel in the last 8 weeks: None household members: other housing: house caffeine: Yes
[2023-03-29 15:29] VITALS: BP 168/90; PULSE 87; RESP 20; O2SAT 96; BMI 49.6
== END ==
LOC: SC.PAIN 15:10
PROVIDERS: PCP Internal Medicine Adolescent Medicine; Visit Provider Nurse Practitioner Family
DX: M51.16 Intervertebral disc disorders with radiculopathy, lumbar region (principal); M79.671 Pain in right foot; M79.672 Pain in left foot; M47.26 Other spondylosis with radiculopathy, lumbar region; M48.061 Spinal stenosis, lumbar region without neurogenic claudication
CPT/HCPCS: 99212; G0463

== ENCOUNTER 2023-04-03 09:00 | Day surgery (SDC) | payer OTHER, SELFPAY ==
[2023-04-03 09:09] VITALS: BP 128/83; PULSE 72; RESP 18; O2SAT 99; BMI 50.4
[2023-04-03 09:32] VITALS: BP 135/94; PULSE 61; RESP 18; O2SAT 99
--- NOTE | 2023-04-03 10:01 | EXP.PAIN.PRO ---
Procedure Date: 04/03/23 Time: 09:40 Anesthesiologist:: Samir Parks CRNA Complications:: None Pre-procedure Diagnosis:: Degenerative disc lumbar spine multilevels. Lumbar radiculopathy. Post-procedure Diagnosis:: Same. Indications for Procedure:: Patient is a very pleasant 52-year-old female comes our clinic today for a lumbar epidural steroid injection at the L4-5 level. Patient reports low back pain as well as bilateral hip and leg radicular symptoms at times. She rates her pain 8/10. Patient reports having difficulty with sitting, standing, ambulation. Procedure Details:: Procedure: Lumbar epidural steroid injection under fluoroscopy Informed consent was obtained and the risks and benefits of the procedure were explained to the patient. The patient was taken to the procedure room and noninvasive monitors placed, including noninvasive blood pressure cuff and pulse oximeter. The back was viewed using C-arm Fluoroscopy and prepped using Chloraprep as a cleansing solution and the L4-L5 interspace was palpated. Skin and subcutaneous tissues were anesthetized using lidocaine 1.5% and a 25-gauge needle. After this, an 18-gauge Touhy epidural needle was placed into the L4-L5 interspace and advanced using fluoroscopic guidance and loss of resistance to air until the epidural space was encountered. After confirmation of needle placement in the epidural space, with dye, a solution containing normal saline, 3 mL and Depo-Medrol 80 mg were incrementally injected into the lumbar epidural space. The patient tolerated the procedure well with no complications. The patient was observed in the Pain Clinic and then discharged home neurologically intact. Plan and Disposition:: Patient was discharged without incident.
[2023-04-03] MEDS: methylPREDNISolone ACETATE 80MG/ML VIAL 80 MG (10:04)
[2023-04-03 10:05] VITALS: BP 133/82; PULSE 68; RESP 20; O2SAT 94
[2023-04-03 10:13] VITALS: BP 133/82; PULSE 68; RESP 18; O2SAT 94
== END 2023-04-03 09:32 | disposition home or self-care (01) ==
LOC: SC.PAINP 09:00
PROVIDERS: PCP Internal Medicine Adolescent Medicine; Visit Provider Nurse Anesthetist, Certified Registered
DX: M51.16 Intervertebral disc disorders with radiculopathy, lumbar region (principal)
CPT/HCPCS: 62323; J1040

== ENCOUNTER 2023-04-10 10:01 | Day surgery (SDC) | payer OTHER, SELFPAY ==
[2023-04-10 10:08] VITALS: BP 155/91; PULSE 68; RESP 16; O2SAT 95; BMI 50.4
[2023-04-10 10:20] VITALS: BP 155/91; PULSE 68; RESP 16; O2SAT 95
--- NOTE | 2023-04-10 10:35 | P.PCN_ITS ---
Procedure Date: 04/10/23 Time: 10:30 Anesthesiologist:: Samir Parks CRNA Complications:: None Pre-procedure Diagnosis:: Degenerative disc lumbar spine multilevels. Lumbar radiculopathy. Lumbar disc bulge multilevel lumbar spine. Post-procedure Diagnosis:: Same. Indications for Procedure:: This patient is a pleasant 52-year-old female comes our clinic today for repeat lumbar epidural steroid injection at the L4-5 level. Patient reporting 60 to 70% improvement terms of her overall low back pain as well as bilateral hip and leg radicular symptoms. Her main complaint is pain in her feet. 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 Procedure Details:: Procedure: Lumbar epidural steroid injection under fluoroscopy Informed consent was obtained and the risks and benefits of the procedure were explained to the patient. The patient was taken to the procedure room and noninvasive monitors placed, including noninvasive blood pressure cuff and pulse oximeter. The back was viewed using C-arm Fluoroscopy and prepped using Ch loraprep as a cleansing solution and the L4-L5 interspace was palpated. Skin and subcutaneous tissues were anesthetized using lidocaine 1.5% and a 25-gauge needle. After this, an 18-gauge Touhy epidural needle was placed into the L4-L5 interspace and advanced using fluoroscopic guidance and loss of resistance to air until the epidural space was encountered. After confirmation of needle placement in the epidural space, with dye, a solution containing normal saline, 3 mL and Depo-Medrol 80 mg were incrementally injected into the lumbar epidural space. The patient tolerated the procedure well with no complications. The patient was observed in the Pain Clinic and then discharged home neurologically intact. Plan and Disposition:: Patient was discharged without incident.
[2023-04-10] MEDS: methylPREDNISolone ACETATE 80MG/ML VIAL 80 MG (11:33)
[2023-04-10 11:34] VITALS: BP 141/92; PULSE 74; RESP 18; O2SAT 97
[2023-04-10 11:36] VITALS: BP 141/92; PULSE 74; RESP 18; O2SAT 97
== END 2023-04-10 10:20 | disposition home or self-care (01) ==
LOC: SC.PAINP 04-11 09:57
PROVIDERS: PCP Internal Medicine Adolescent Medicine; Visit Provider Nurse Anesthetist, Certified Registered
DX: M51.16 Intervertebral disc disorders with radiculopathy, lumbar region (principal); M51.26 Other intervertebral disc displacement, lumbar region
CPT/HCPCS: 62323; J1040

== ENCOUNTER 2023-06-26 11:26 | Outpatient (CLI) | payer OTHER, SELFPAY ==
[2023-06-26 12:24] LABS: Basophils # 0.1 K/mm3 (0-0.2); Basophils % 1.3 % (0.1-2.0); Eosinophils # 0.2 K/mm3 (0.0-0.4); Eosinophils % 2.4 % (0.1-12.0); Hemoglobin 15.2 g/dL (12.2-16.2); Lymphocytes # 2.7 K/mm3 (0.7-4.5); Lymphocytes % 28.5 % (10-50); Mean Corpuscular Hemoglobin 29.4 pg (27.0-31.2); Mean Corpuscular Volume 94.9 fl (81-99); Mean Platelet Volume 8.1 fl (7.4-10.4); Monocytes # 0.4 K/mm3 (0.1-1.0); Monocytes % 3.9 % (1.7-9.3); Platelet Count 261 K/mm3 (142-424); Red Blood Count 5.17 M/mm3 (4.20-5.40); Red Cell Distribution Width 13.2 % (11.5-17.5); White Blood Count 9.4 K/mm3 (4.8-10.8)
[2023-06-26 12:30] LABS: Hemoglobin A1C 5.6 % (4.0-6.0)
[2023-06-26 13:15] LABS: Erythrocyte Sedimentation Rate 39 mm/hr (0-30)
[2023-06-26 14:30] LABS: Alanine Aminotransferase 24 U/L (12-78); Albumin Level 4.2 g/dl (3.5-5.0); Albumin/Globulin Ratio 1.8 (1.1-1.8); Alkaline Phosphatase 85 U/L (38-126); Anion Gap 13.3 mEq/L (5-15); Aspartate Amino Transferase 24 U/L (14-36); Bilirubin,Total 0.4 mg/dl (0.2-1.3); Blood Urea Nitrogen 35 mg/dl (7-17); Calcium 9.4 mg/dl (8.4-10.2); Carbon Dioxide 24 mmol/L (22.0-30.0); Chloride 105 mmol/L (98-107); Estimated Glomerular Filt Rate 25 ml/min (>60); GFR (African American) 30 ML/MIN (>60); Globulin 2.4 g/dL (1.3-3.2); Glucose 73 mg/dl (74-100); Potassium 4.3 mmoL/L (3.5-5.1); Sodium 138 mmol/L (136-145); Total Protein,Serum 6.6 g/dl (6.3-8.2)
[2023-06-26 14:33] LABS: Creatinine,Urine Random 18 mg/dL (Not Estab.)
[2023-06-26 14:36] LABS: Microalbumin < 6.000 mg/L (0-16.7)
[2023-06-26 14:44] LABS: 25-OH Vitamin D, Total 30.7 ng/mL (30-100)
[2023-06-26 14:59] LABS: Thyroid Stimulating Hormone 1.94 uIU/mL (0.465-4.68)
[2023-06-26 15:34] LABS: Vitamin B12 707 pg/mL (239-931)
[2023-06-27 09:09] LABS: RA Latex Turbid. <10.0 IU/mL (<14.0)
[2023-06-27 11:29] LABS: Anti-DNA (DS) Ab Qn <1 IU/mL (0-9)
[2023-06-28 11:52] LABS: Anti-DNA (DS) Ab Charge YES; Antinuclear Antibodies (ANA) Negative
[2023-06-28 11:53] LABS: Anti-DNA (DS) Ab Qn <1
== END 2023-06-26 23:59 ==
LOC: LAB 11:27
PROVIDERS: PCP Internal Medicine Adolescent Medicine; Visit Provider Nurse Practitioner Family
DX: Z79.899 Other long term (current) drug therapy (principal); M12.9 Arthropathy, unspecified; R20.2 Paresthesia of skin; E11.22 Type 2 diabetes mellitus with diabetic chronic kidney disease
CPT/HCPCS: 36415; 80053; 82043; 82306; 82570; 82607; 82746; 83036; 84443; 85025; 85651; 86038; 86225; 86235; 86431

== ENCOUNTER 2023-07-06 11:09 | Outpatient (CLI) | payer OTHER, SELFPAY ==
--- NOTE | 2023-07-06 11:11 | MR_ITS ---
FINAL REPORT CLINICAL HISTORY: LOW BACK PAIN. NUMBNESS BILATERAL FEET. RIGHT FOOT PAIN COMPARISON: 02/21/2021 FINDINGS: Multiplanar MR imaging of the lumbar spine was performed without contrast. On the sagittal T2-weighted images, disc degeneration is seen at multiple levels. There is mild anterolisthesis of L4 on L5. There is no evidence of fracture. No bony mass is identified. The conus has an unremarkable appearance. T12-L1: An annular bulge is present with anterior osteophytes. L1-2: An annular bulge is present. There is no significant canal stenosis or neural foraminal narrowing. L2-3: An annular bulge is present. There is no significant canal stenosis or neural foraminal narrowing. L3-4: An annular bulge is present with facet osteoarthropathy. There is moderate right and mild left neural foraminal narrowing. L4-5: An annular bulge is present with severe facet osteoarthropathy. There is mild right and moderate left neural foraminal narrowing. L5-S1: An annular bulge is present with facet osteoarthropathy. There is a small central disc protrusion with mild right neural foraminal narrowing. IMPRESSION: Multilevel degenerative disc disease and spondylosis as described. Reviewed, Interpreted and Dictated by Jerome Alvarez III, MD Transcribed by Mirna Alfred Authenticated and [facility]
== END 2023-07-06 23:59 | disposition home or self-care (01) ==
LOC: RAD 11:09
PROVIDERS: PCP Nurse Practitioner Family; Visit Provider Nurse Practitioner Family
DX: M54.50 Low back pain, unspecified (principal); R20.0 Anesthesia of skin
CPT/HCPCS: 72148; 76376

== ENCOUNTER 2023-07-25 11:41 | Outpatient (CLI) | payer OTHER, SELFPAY ==
[2023-07-25 12:22] LABS: Anion Gap 9.8 mEq/L (5-15); Blood Urea Nitrogen 27 mg/dl (7-17); Calcium 9.7 mg/dl (8.4-10.2); Carbon Dioxide 27 mmol/L (22.0-30.0); Chloride 106 mmol/L (98-107); Estimated Glomerular Filt Rate 28 ml/min (>60); GFR (African American) 34 ML/MIN (>60); Glucose 75 mg/dl (74-100); Potassium 3.8 mmoL/L (3.5-5.1); Sodium 139 mmol/L (136-145)
== END 2023-07-25 23:59 | disposition home or self-care (01) ==
LOC: LAB 11:42
PROVIDERS: PCP Internal Medicine Adolescent Medicine; Visit Provider Nurse Practitioner Family
DX: N18.4 Chronic kidney disease, stage 4 (severe) (principal)
CPT/HCPCS: 36415; 80048

== ENCOUNTER 2024-09-08 11:30 | Outpatient (CLI) | payer OTHER, SELFPAY ==
--- OUTSIDE RECORDS SUMMARY | 2024-09-09 09:56 | XMS_ITS | Encounter Summary ---
Author Organization Healthcare Address [address] [place] [address] Care Team Providers Care Rnfa Name Role Phone Unavailable Primary Care Provider Unavailabl e Reason for Referral * Consultation (Routine) - Authorized Specialty Diagnoses / Procedures Referred By Contac t Referred To Contact Nephrology Diagnoses Chronic kidney disease, stage IV (severe) (CMS/HCC) Opal Michel, DATA KEYER [address] [address] Phone: tel: fax: [facility] [address] [address] Phone: tel: Referral ID Status Reason Start Date Expiration Date Visits Requested Visits Authorized [id number] Authorized Specialty Services Required 06/28/2023 12/27/2024 1 1 Encounter Details Date Type Department Care Team (Late st Contact Info) Description 06/28/2023 Community Orders Community Practice [address] [place] [address] Opal Michel, DATA KEYER [address] [address] Chronic kidney disease, stage IV (severe) (CMS/HCC) (Primary Dx) Social History Tobacco Use Types Packs/Day Years Used Date Smoking Tobacco: Never Assessed Comments Unknown Sex and Gender Information Value Date Recorded Sex Assigned at Not on file Legal Sex Female 6:54 PM EDT Gender Identity Not on file Sexual Orientation Not on file documented as of this encounter Plan of Treatment Scheduled Referrals Name Type Priority Associated Diagnoses Order Schedule Ambulatory referral to Nephrology Outpatient Referral Routine Chronic kidney disease, stage IV (severe) (CMS/HCC) Ordered: 06/28/2023 documented as of this encounter Visit Diagnoses Diagnosis Chronic kidney disease, stage IV (severe) (CMS/HCC)- Primary Chronic kidney disease, Stage IV (severe) documented in this encounter
--- OUTSIDE RECORDS SUMMARY | 2024-09-09 09:56 | XMS_ITS | Clinical Summary ---
Author Organization Healthcare Address [address] [place] [address] Care Team Providers Care Pillowcase Cleaner Name Role Phone Unavailable Primary Care Provider Unavailabl e Social History Tobacco Use Types Packs/Day Years Used Date Smoking Tobacco: Never Assessed Comments Unknown Sex and Gender Information Value Date Recorded Sex Assigned at Not on file Legal Sex Female 6:54 PM EDT Gender Identity Not on file Sexual Orientation Not on file Plan of Treatment Health Maintenance Due Date Last Done Comments [facility]-Depression Screening 1970 [facility]-Infant/Child/Adol SDOH Screenings 1970 [facility]- SDOH Screenings 1988 [facility]-Adult SDOH Screenings 1988 [facility]-DTaP,Tdap,and Td Vaccine s (1 - Tdap) 1989 [facility]-Hepatitis B Vaccines (1 of 3 - 19+ 3-dose series) 1989 [facility]-Pap Smear 12/16/1991 [facility]-Cervical Cancer Screening 2000 [facility]-HPV/Cotest 2000 CT Colonography 12/16/2015 Colonoscopy 12/16/2015 FIT-DNA 12/16/2015 FIT 12/16/2015 FOBT 12/16/2015 Sigmoidoscopy 12/16/2015 [facility]-Colorectal Cancer Screening 12/16/2015 [facility]-Pneumococcal Vaccine: 50 + Years (1 of 1 - PCV) 2020 [facility]-Zoster Vaccines (1 of 2) 2020 [id number] Vaccine (2023- season) 2023 03/06/2021, 06/06/2020, 05/09/2020 [facility]-Influenza Vaccine (Seaso n Ended) 2024 12/19/2021, 03/10/2020 HPV Vaccines Aged Out No longer eligi ble based on patient's age to complete this topic [facility]-HIB Vaccines Aged Out No longer e ligible based on patient's age to complete this topic [facility]-Hepatitis A Vaccines Aged Out No longer eligible based on patient's age to complete this topic [facility]-IPV Vaccines Aged Out No longer e ligible based on patient's age to complete this topic [facility]-Rotavirus Vaccines Aged Out No lo nger eligible based on patient's age to complete this topic Insurance
== END 2024-09-08 23:59 | disposition home or self-care (01) ==
LOC: LAB.DROPOF 09-09 09:54
PROVIDERS: PCP Podiatrist; Visit Provider Podiatrist
DX: S90.821A Blister (nonthermal), right foot, initial encounter (principal)
CPT/HCPCS: 87070; 87205

== ENCOUNTER 2024-09-15 10:27 | Outpatient (CLI) | payer OTHER, SELFPAY ==
--- NOTE | 2024-09-15 10:30 | XR_ITS ---
FINAL REPORT CLINICAL HISTORY: CHEST PAIN, SOA COMPARISON: 12/21/2022 FINDINGS: 2 views of the chest were obtained . The heart is normal in size. The mediastinum is within normal limits. New increased markings are seen in the left lung base consistent with pneumonia. There is no pneumothorax. Osseous structures are unremarkable. IMPRESSION: Left basilar pneumonia. Reviewed, Interpreted and Dictated by Zohra Sloan MD Transcribed by Mariola Dong Authenticated and [facility]
--- OUTSIDE RECORDS SUMMARY | 2024-09-15 11:04 | XMS_ITS | Encounter Summary ---
Author Organization Healthcare Address [address] [place] [address] Care Team Providers Care Printed Circuit Boards Inspector Name Role Phone Unavailable Primary Care Provider Unavailabl e Reason for Referral * Consultation (Routine) - Authorized Specialty Diagnoses / Procedures Referred By Contac t Referred To Contact Nephrology Diagnoses Chronic kidney disease, stage IV (severe) (CMS/HCC) Opal Michel, CORE MEASURES ABSTRACTOR [address] [address] Phone: tel: fax: [facility] [address] [address] Phone: tel: Referral ID Status Reason Start Date Expiration Date Visits Requested Visits Authorized [id number] Authorized Specialty Services Required 06/28/2023 12/27/2024 1 1 Encounter Details Date Type Department Care Team (Late st Contact Info) Description 06/28/2023 Community Orders Community Practice [address] [place] [address] Opal Michel, CORE MEASURES ABSTRACTOR [address] [address] Chronic kidney disease, stage IV (severe) (CMS/HCC) [...]
--- OUTSIDE RECORDS SUMMARY | 2024-09-15 11:04 | XMS_ITS | Clinical Summary ---
Author Organization Healthcare Address [address] [place] [address] Care Team Providers Care Wharf Tally Clerk Name Role Phone Unavailable Primary Care Provider [...] 2020 [facility]-Zoster Vaccines (1 of 2) 2020 [id number] Vaccine (2023- season) 2023 03/06/2021, 06/06/2020, 05/09/2020 [...]
== END 2024-09-15 23:59 | disposition home or self-care (01) ==
LOC: RAD 10:28
PROVIDERS: PCP Nurse Practitioner Family; Visit Provider Nurse Practitioner Family
DX: J18.9 Pneumonia, unspecified organism (principal)
CPT/HCPCS: 71046

== ENCOUNTER 2024-09-15 13:10 | Observation (INO) | payer OTHER, SELFPAY ==
[2024-09-15] VITALS (14 sets, daily range): BP systolic 115–143; BP diastolic 68–96; PULSE 68–105; RESP 16–20; TEMP 36.6–36.7; O2SAT 90–100; BMI 42.3
--- NOTE | 2024-09-15 13:29 | ECG_ITS ---
APPROVED REPORT Exam: Resting ECG HR:82 bpm ECG Measurements Heart Rate 82 AXES MI 163 P 55 QRSd 90 QRS 42 QT 332 T 15 QTc 370 Conclusion SINUS RHYTHM LOW QRS VOLTAGE IN PRECORDIAL LEADS [QRS DEFLECTION < 1.0 mV IN CHEST LEADS] BORDERLINE ECG UNCONFIRMED REPORT Electronically signed by : ALLYSON ARNOLD, 09/16/2024 06:32:39
--- OUTSIDE RECORDS SUMMARY | 2024-09-15 13:40 | XMS_ITS | Data Portability ---
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 Name Role Phone ROBERT SANCHEZ Primary Care Provider ROBERT SANCHEZ Referring Provider Assessment Encounter Date Assessment Date Assessment LastModified by Organization Details LastModified Time 06/26/2019 06/26/2019 03/06/19 SHAZIA, ANCA hla B27 ag, SSA/SSB ab, anti-ccp ab, SPEP, CPK, magnesium, RF - all normal uric acid 6.1 (H), ESR 33 (H), CRP 1.08 (H) -- all high 06/26/2019 EMG - very mild peripheral neuropathy and mild R CTS [email or web address] Not available 06/26/2019 16:36:07 Plan of Treatment Reminders Order Date Submit Date Provider Last Modified By Organization Details Last Modified Time Details Appointments None recorde d. Lab CBC w/ auto diff 2019 020 [email or web address] [facility], [address] [place] [address], [phone], 0 14:03:27 CMP, serum or plasma 2019 020 [email or web address] [facility], [address] [place] [address], [address], 0 14:03:27 thyroid panel, serum 2019 020 [email or web address] [facility], [address] [place] [address], [address], 0 14:03:28 TSH, serum or plasma 2019 020 [email or web address] [facility], [address] [place] [address], [address], 0 14:03:28 T4, free, serum 2019 020 [email or web address] [facility], [address] [place] [address], [address], 0 14:03:28 vitamin B12 + folate, serum or blood 2019 020 [email or web address] [facility], [address] [place] [address], [address], 0 14:03:28 copper, serum or plasma [address] [facility], [address] [place] [address], [address], 0 14:03:28 vitamin D, 25-hydr oxy, total, serum 2019 020 [email or web address] [facility], [address] [place] [address], [address], 0 14:03:28 protein electro phoresi s panel, serum or plasma 2018 019 [facility], [address] [place] [address], [address], 9 15:55:26 immunof ixation , serum 2018 019 [facility], [address] [place] [address], [address], 9 17:10:22 ESR (erythr ocyte sedimen tation rate), blood 2018 019 [facility], [address] [place] [address], [address], 9 11:17:14 C reactiv e protein , QN, serum or plasma 2018 019 [facility], [address] [place] [address], [address], 9 10:49:37 HLA-B27 , qual, flow cytomet ry 2018 [facility], [address] [place] [address], [address], 9 12:20:02 CK (creati ne kinase) , total, serum 2018 [facility], [address] [place] [address], [address], 9 10:49:39 magnesi um, QN, serum or plasma 2018 019 [facility], [address] [place] [address], [address], 9 10:49:41 anca, serum 2018 019 [facility], [address] [place] [address], [address], 9 13:20:20 ccp (cyclic citrull inated peptide ) iga+igg , serum 2018 019 [facility], [address] [place] [address], [address], 9 08:05:15 rf (rheuma toid factor) , serum 2018 019 [facility], [address] [place] [address], [address], 9 10:49:33 uric acid, serum or plasma 2018 019 [facility], [address] [place] [address], [address], 9 10:49:35 SHAZIA (antinu clear antibod ies) panel, serum 2018 019 [facility], [address] [place] [address], [address], 9 18:15:27 sjogren antibod y panel, serum 2018 019 [facility], [address] [place] [address], [id number], 9 18:30:16 Referral None recorde d. Procedures None recorde d. Surgeries None recorde d. Imaging XR, lumbosa cral spine, 2 or 3 view 2018 019 [facility], [address] [place] [address], [address], 9 12:48:38 Medication Orders Compoun d Topical Cream Neurocr eam Reformu lated (Ketami ne 10% Gabapen tin 6% Lidocai ne 5% Amitrip tyline 2% Bupivac rula 2%) 2019 020 [email or web address] [facility], [address], [address], 0 16:16:06 meloxic am 15 mg tablet 2017 018 roxana [facility], [address], [address], 0 09:24:45 Patient TargetsNo targets recorded. Patient Instructions Encounter Date Encounter Id Patient Instructions Last Modified By Organization Details Last Modified Time 02/13/2018 [id number] A healthy lifestyle: care instructions [email or web address] Not available 02/13/2018 12:24:38 03/06/2019 [id number] back care and preventing injuries: care instructions [email or web address] Not available 03/06/2019 09:38:59 getting back to normal after low back pain: care instructions [email or web address] Not available 03/06/2019 09:38:58 learning about relief for back pain smoberly Not available 03/06/2019 09:38:58 06/26/2019 [id number] prescription/elizabeth g reporting* [email or web address] Not available 07/04/2019 08:13:48 Reason for Referral None Reported. Results Created Date Observation Date Name Description Value Unit Range Abnormal Flag Note LastModifiedBy Organization Detail LastModifiedTime 03/06/20 19 03/06/2019 rf (rheu matoi d facto r), serum rf screen, quant. <10.0 IU/mL 0.0-13 .9 normal Not Available [facility] [address] [place] [address], [address], 03/06/2019 10:49:33 03/06/2003/06/2019 uric acid, serum or plasm a uric acid 6.1 mg/dL 2.4-5. 7 high Not Available [facility] [address] [place], [address], 03/06/2019 10:49:35 03/06/2003/06/2019 C react lenka prote in, QN, serum or plasm a C reactive protein 1.08 mg/dL 0.00-0 .50 high Cassy ntrat ions of < 1 mg/dL exclu de many acute infla mmato ry disea ses but do not speci fical ly exclu de infla mmato ry proce sses. [place] vikki cassy ntrat ions of < 5 mg/dL in acute disea se occur in the prese nce of sligh t to moder ate infla mmato ry proce sses. Value s > 5 mg/dL indic ate high and exten sive infla mmato ry activ ity. Not Available [facility] [address] [place], [address], 03/06/2019 10:49:37 03/06/20 19 03/06/2019 CK (crea cayetano kinas e), total , serum creatine kinase 38 U/L 0-169 normal Not Available [facility] [address] [place], [address], 03/06/2019 10:49:39 03/06/20 19 03/06/2019 magnag alexandra, QN, serum or plasm a magnesium 1.82 mg/dL 1.60-2 .60 normal Not Available [facility] [address] [place] [address], [address], 03/06/2019 10:49:41 03/06/20 19 03/06/2019 ESR (eryt hrocy te sedim entat ion rate) , blood ESR, automated 33 mm/HR 0-19 high Not Available [facility] [address] [place], [address], 03/06/2019 11:17:14 03/06/20 19 03/07/2019 prote in elect ropho resis panel , serum or plasm a protein, total 6.3 g/dL 6.1-8. 1 normal TEST PERFO RMED AT: [facility] [address] [place] [address] SUGAR Ruth MD Not Available [facility] [address] [place] [address], [address], 03/10/2019 17:34:52 03/06/20 19 03/10/2019 prote in elect ropho resis panel , serum or plasm a albumin 3.9 g/dL 3.8-4. 8 normal Not Available [facility] [address] [place] [address], [address], 03/10/2019 17:34:52 03/06/20 19 03/10/2019 prote in elect ropho resis panel , serum or plasm a cpmqy-2-vkvi ulin 0.3 g/dL 0.2-0. 3 normal Not Available [facility] [address] [place] [address], [address], 03/10/2019 17:34:52 03/06/20 19 03/10/2019 prote in elect ropho resis panel , serum or plasm a xshmx-6-lewz ulin 0.8 g/dL 0.5-0. 9 normal Not Available [facility] [address] [place], [address], 03/10/2019 17:34:52 03/06/20 19 03/10/2019 prote in elect ropho resis panel , serum or plasm a beta 1 globulin 0.5 g/dL 0.4-0. 6 normal Not Available [facility] [address] [place] [address], [address], 03/10/2019 17:34:52 03/06/20 19 03/10/2019 prote in elect ropho resis panel , serum or plasm a beta 2 globulin 0.4 g/dL 0.2-0. 5 normal Not Available [facility] [address] [place] [address], [address], 03/10/2019 17:34:52 03/06/20 19 03/10/2019 prote in elect ropho resis panel , serum or plasm a gamma globulin 0.5 g/dL 0.8-1. 7 low Not Available [facility] [address] [place] [address], [address], 03/10/2019 17:34:52 03/06/20 19 03/10/2019 prote in elect ropho resis panel , serum or plasm a interpretati on SEE BELOW normal The gamma globu roula appea rs decre ased. No monoc lonal immun oglob ulin detec vikki. TEST PERFO RMED AT: [facility] [address] [place] [address] SUGAR Ruth MD Not Available [facility] [address] [place], [address], 03/10/2019 17:34:52 03/06/20 19 03/07/2019 immun ofixa tion, serum interpretati on SEE BELOW normal No monoc lonal immun oglob ulin detec vikki. TEST PERFO RMED AT: [facility] [address] [place] [address] SUGAR Ruth MD Not Available [facility] [address] [place] [address], [address], 03/07/2019 17:10:22 03/06/20 19 03/07/2019 sjogr en antib adrianne panel , serum ss-A Ab <1.0 NEG ai <1.0 neg normal Not Available [facility] [address] [place] [address], [address], 03/07/2019 18:30:16 03/06/20 19 03/07/2019 sjogr en antib adrianne panel , serum ss-B Ab <1.0 NEG ai <1.0 neg normal TEST PERFO RMED AT: [facility] [address] [place] [address] SUGAR Ruth MD Not Available [facility] [address] [place] [address], [address], 03/07/2019 18:30:16 03/06/20 19 03/08/2019 HLA-B 27, qual, flow cytom etry hla B27 antigen NEGATI VE negati ve normal TEST PERFO RMED AT: [facility] [address] [place] [address] SUGAR Ruth MD Not Available [facility] [address] [place] [address], [address], 03/08/2019 12:20:02 03/06/20 19 03/08/2019 SHAZIA (anti nucle ar antib odies ) panel , serum SHAZIA screen NEGATI VE negati ve normal SHAZIA IFA is a first line scree n for detec ting the prese nce of up to appro ximat michaelle 150 autoa ntibo dies in vario us autoi mmune disea ses. A negat lenka SHAZIA IFA resul t sugge sts an SHAZIA-a ssoci ated autoi mmune disea se is not prese nt at this time, but is not defin itive . If there is high clini radha suspi cion for Sjogr en's syndr ome, testi ng for anti- SS-A/ Ro antib adrianne shoul d be consi dered . Anti- Delfina-1 antib adrianne shoul d be consi dered for clini luis suspe cted infla mmato ry myopa maryam . AC-0: Negat lenka Inter natio nal Conse nsus on SHAZIA Patte rns (http s://d oi.or g/10. 8655/ [facility]- 2017- 0052) For addit ional infor [place]le [place] e refer to http: //[facility] reid vital.Que stDia gnost ics.c om/fa q/FAQ 177 (This link is being provi ded for infor ayse nal/ educa inez l purpo ses only. ) TEST PERFO RMED AT: [facility] [address] [place] [address] SUGAR Ruth MD Not Available [facility] [address] [place] [address], [address], 03/08/2019 18:15:27 03/06/20 19 03/09/2019 ccp (cycl ic citru llina vikki pepti de) iga+i gg, serum anti-ccp <16 units normal Refer ence Range Negat lenka: <20 Weak Posit lenka: 20-39 Moder ate Posit lenka: 40-59 Stron g Posit lenka: >59 TEST PERFO RMED AT: [facility] [address] [place] [address] SUGAR Ruth MD Not Available [facility] [address] [place] [address], [address], 03/09/2019 08:05:15 03/06/20 19 03/11/2019 anca, serum anca screen NEGATI VE negati ve normal ANCA Scree n inclu latanya evalu ation for p-ANC A, c-ANC A and atypi radha p-ANC A. A posit lenka ANCA scree n refle xes to titer and patte rn(s) , e.g., cytop lasmi c mell rn (c-AN CA), perin uclea r mell rn (p-AN CA), or atypi radha p-ANC A mell rn. c-ANC A and p-ANC A are obser george in vascu litis , where as atypi radha p-ANC A is obser george in IBD (Infl ammat ory Bowel Disea se). Atypi radha p-ANC A is detec vikki in about 55% to 80% of patie nts with ulcer ative colit is but only 5% to 25% of patie nts with Crohn 's disea se. TEST PERFO RMED AT: [facility] [address] [place] [address] SUGAR Ruth MD Not Available [facility] [address] [place] [address], [address], 03/11/2019 13:20:20 03/06/20 19 03/06/2019 XR, lumbo sacra l spine , 2 or [address] [address] Patien t Name: MONALISA WILKS EAD Patien t : [phone] Patien t Orderi ng Provid er: KIERA Singleton EXAM DATE: 2018 EXAM: XR LUMBAR AP/LAT CLINIC AL INFORM ATION: Back pain. IMAGES PROVID ED: AP, latera l and coned- down views of the lumbar spine. COMPAR NISREEN: None. FINDIN GS: Curvat ure, alignm ent, verteb ral body height s are normal . Multil evel disc space reduct ion is seen with anteri or and latera l osteop hytes. No radiog raphic eviden ce of injury is noted. IMPRES JACQUELYN: Degene rative change s of the lumbar spine. Interp reted By: Ashlyn Albert MD Electr onical ly Signed By: Ashlyn Albert MD on 2018 12:43 PM [email or web address] [facility] [address] [place], [address], 03/07/2019 09:31:46 06/27/19 20 06/26/2019 elect romyo gram + nerve condu ction study No observ ation record ed. [email or web address] Not Available 2019 07:59:41 Result Notes Documentation Provider Name and Address Organization Details Recorded Time Xr, Lumbosacral Spine, 2 Or 3 View : [facility] [address] [place] [address] Patient Name: MONALISA STOUT Patient : 1970 Patient Ordering Provider: TRINITY OSEGUERA EXAM DATE: 03/06/2019 EXAM: XR LUMBAR AP/LAT CLINICAL INFORMATION: Back pain. IMAGES PROVIDED: AP, lateral and coned-down views of the lumbar spine. COMPARISON: None. FINDINGS: Curvature, alignment, vertebral body heights are normal. Multilevel disc space reduction is seen with anterior and lateral osteophytes. No radiographic evidence of injury is noted. IMPRESSION: Degenerative changes of the lumbar spine. Interpreted By: Leonardo Albert MD Jesus Alberto lezama, [facility] 03/07/2019 09:31:46 Problems No Known Problems Procedures Surgical History Date Name Laterality Status Provider Name and Address Organization Details Recorded Time 020 Electromyography (EMG) with Nerve Conduction Study (NCV) completed Nydia Esteban (Nicky) [facility] 06/26/2019 13:08:40 Cholecystectomy completed Renuka Pacheco [facility] 06/26/2019 09:25:44 Imaging Results None recorded. Procedure Notes None recorded. Medical Equipment None Reported. Allergies No known drug allergies Medications Name Sig Start Date Stop Date Status Note LastModified by Organization Details LastModified Time Compound Topical Cream Neurocrea m Reformula vikki (Ketamine 10% Gabapenti n 6% Lidocaine 5% Amitripty line 2% Bupivacai ne 2%) 1-2 grams to feet tid PRN 2019 active Not Available Not Available Not Avai lable amoxicill in 500 mg capsule 02/13 completed Not Available Not Available Not Available furosemid e 40 mg tablet Take 1 tablet every day by oral route. active Not Available Not Available No t Available hydrocodo ne 7.5 mg-ibupro fen 200 mg tablet 02/13 completed Not Available Not Available Not Available promethaz ine-DM 6.25 mg-15 mg/5 mL oral syrup 02/13 completed Not Available Not Available Not Available prednison e 10 mg tablet TK 1 T PO BID FOR 5 DAYS active Not Available Not Available No t Available venlafaxi ne ER 75 mg capsule,e xtended release 24 hr 03/06 completed Not Available Not Available Not Available azithromy keturah 250 mg tablet active Not Available Not Available No t Available tizanidin e 4 mg tablet active Not Available Not Available Not Available benzonata te 200 mg capsule 02/13 completed Not Available Not Available Not Available hydrocodo ne 5 mg-acetam inophen 325 mg tablet active Not Available Not Available Not Available ondansetr on HCl 8 mg tablet 02/13 completed Not Available Not Available Not Available meloxicam 15 mg tablet Take 1 tablet every day by oral route for 30 days. 06/25 completed Not Available Not Available Not Available prednison e 20 mg tablet active Not Available Not Available Not Available venlafaxi ne ER 150 mg capsule,e xtended release 24 hr 06/25 completed Not Available Not Available Not Available bisoprolo l 5 mg-hydroc hlorothia zide 6.25 mg tablet active Not Available Not Available No t Available acetamino phen 300 mg-codein e 30 mg tablet 03/06 completed Not Available Not Available Not Available tramadol 50 mg tablet Take 1 tablet 3 times a day by oral route as needed. active Not Available Not Available No t Available triamcino lone acetonide 0.1 % topical cream 06/25 completed Not Available Not Available Not Available amoxicill in 875 mg tablet 02/13 completed Not Available Not Available Not Available amitripty line 25 mg tablet TAKE 1 TABLET BY MOUTH ONCE DAILY active Not Available Not Available No t Available gabapenti n 800 mg tablet Take 1 tablet 3 times a day by oral route for 30 days. active Not Available Not Available No t Available benzonata te 100 mg capsule 02/13 completed Not Available Not Available Not Available Topicort 0.25 % topical cream One to two times a day 02/13 completed Instructi ons: apply to affected areas qd-bid x 10-14 days prn;Frequ ency: qd-bid;Me dication Descripti on: desoximet asone topical; Dosage:as directed; Route:top ical; refills:1 ; Quantity: 30gms cream Not Available Not Available Not Available levothyro xine 50 mcg tablet active Not Available Not Available Not Available cephalexi n 500 mg capsule active Not Available Not Available Not Available oseltamiv ir 75 mg capsule 03/06 completed Not Available Not Available Not Available ropinirol e 0.5 mg tablet active Not Available Not Available Not Available lisinopri l 10 mg tablet active Not Available Not Available Not Available gabapenti n 300 mg capsule 06/25 completed Not Available Not Available Not Available diclofena c sodium 75 mg tablet,de layed release Take 1 tablet twice a day by oral route. 06/25 completed Not Available Not Available Not Available levofloxa keturah 500 mg tablet 02/13 completed Not Available Not Available Not Available methylpre dnisolone 4 mg tablets in a dose pack Take 1 tablet by oral route as directe d. 03/06 completed Not Available Not Available Not Available ondansetr on 4 mg disintegr ating tablet 02/13 completed Not Available Not Available Not Available cefdinir 300 mg capsule 06/25 completed Not Available Not Available Not Available metformin ER 500 mg tablet,ex tended release 24 hr active Not Available Not Available Not Available amoxicill in 875 mg-potass ium clavulana te 125 mg tablet TAKE 1 TABLET BY MOUTH EVERY 12 HOURS FOR 7 DAYS active Not Available Not Available No t Available cyclobenz aprine 5 mg tablet TAKE 1 TABLET BY MOUTH EVERY 8 HOURS NEEDED FOR PAIN SPASM active Not Available Not Available No t Available rosuvasta tin 5 mg tablet 03/06 completed Not Available Not Available Not Available bupropion HCl XL 300 mg 24 hr tablet, extended release active Not Available Not Available Not Available bupropion HCl XL 150 mg 24 hr tablet, extended release 06/25 completed Not Available Not Available Not Available duloxetin e 30 mg capsule,d elayed release 03/06 completed Not Available Not Available Not Available duloxetin e 60 mg capsule,d elayed release active Not Available Not Available Not Available ProAir HFA 90 mcg/actua tion aerosol inhaler 02/13 completed Not Available Not Available Not Available Farxiga 10 mg tablet active Not Available Not Available Not Available Vitals Date Recorded Body height Body mass index (BMI) Body weight Heart rate Systolic blood pressure Diastolic blood pressure Provider Name and Address Organization Details Last Updated DateTime 0 170.18 cm 64.1 kg/m2 405009. 28 g 68 /min 122 mm[Hg] 78 mm[Hg] Renuka gilman [facility] 0 09:27:52 Date Recorded Body height Body mass index (BMI) Body weight Provider Name and Address Organization Details Last Updated DateTime 02/13/2018 170.18 cm 62.2 kg/m2 348228.17 g Jeison Muhammad [facility] 02/13/2018 11:35:47 Date Recorded Body weight Heart rate Respiratory rate Systolic blood pressure Diastolic blood pressure Provider Name and Address Organization Details Last Updated DateTime 03/06/2019 227768. 68 g 74 /min 18 /min 137 mm[Hg] 91 mm[Hg] Ema Carlito [facility] 9 09:21:39 Social History Question Answer Notes LastModified by Organizat ion Details LastModified Time Tobacco Smoking Status Never Smoker Jeison Muhammad [facility] 02/13/2018 11:39:05 Live Alone Or With Others? With Others Information not available 06/26/2019 Marital Status awariel Informat ion not available 06/26/2019 What Was The Date Of Your Most Recent Tobacco Screening? 02/13/2018 Information n ot available 05/13/2019 Sex: Unknown Functional Status Question Answer Note LastModified by Organizat ion Details LastModified Time What is your level of alcohol consumption? 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 Family History Relationship Description Onset Age of this Age Resolved Age Notes LastModified by Organization Details LastModified Time Sister Diabetes mellitus [email or web address] Not available 04/2019 09:25:12 Sister Hypertensive disorder [email or web address] Not available 04/2019 09:25:15 Medical History Condition Response COPD N Depression Y Anxiety Disorder Y Arthritis Y Acid Reflux (GERD) N Rheumatoid Arthritis N Kidney Disease N Heart Conditions N Migraines N Bleeding Disorder N Asthma N Anesthesia Complications N Blood Thinners N High Cholesterol Y Liver Disease N Diabetes N Sleep Apnea Y Hypertension Y Gynecological HistoryNo gynecological history recorded. Obstetrics History GPAL:G 0 P 0 0 0 0 Past Encounters Encounter ID Performer Location Encounter Start Date Encounter Closed Date Diagnosis/Indication Diagnosis SNOMED-CT Code Diagnosis ICD10 Code Diagnosis Note [id number] SILVESTRE HIGGINBOTHAM MD [facility] [address] [place] [address] 02/13/2018 10:59:00 02/13/2018 12:10:22 Arthropathy of knee joint 028192066 M12.862 Ms Stout has had probable meniscus root tear of the left knee. I had a 15 minute discussion with her regarding the cause, natural history and limited treatment options for the meniscus root tear and arthropath y of the knee. I recommend continued weight loss and meloxicam. I discussed continuati on of physical therapy to help with strengthen ing of the knee as well. [id number] TRINITY OSEGUERA APRN [facility] [address] [place] [address] 03/06/2019 08:51:03 03/06/2019 09:45:51 Erythrocyte sedimentation rate above reference range 255107829 R70.0 on prednisone now daily at 20 mg daily mom with sjogren's and sisters with autoimmune no major infections ; had elevated esr but not sure of has been on prednisone daily x 4 months with improved outcome we discussed and it is likely that anyone can feel improvemen t with 40 mg prednisone daily; the true test would be on less than 25 mg per day titrated down; she reports she does not know how high her ESR was and on review of her referral notes, it is not specified after discussion we will assess further labs today, then in order to identify further outcome if all labs are negative with her long course of steroid therapy, she has no synovitis, no dactylitis , she has no skin changes or rashes; she will need autoimmune testing a this time; she will then titrate down off the prednisone and re-assess labs again if necessary Pain of mu ltiple joints [id number] M25.50 Muscle weakness [id number] M62.81 Low back pain [id number] M54.5 with tenderness ; likely degenerati ve in nature; unlikely though with her report, I will obtain labs and xray today to assess degree of degenerati on or stenosis she is tender to palp; she is without significan t deformity; no obvious scoliosis found [id number] YAS CHEEMA MD NEUROLOGY [facility] [address] [place] [address] 06/26/2019 09:07:25 06/26/2019 11:24:26 Idiopathic peripheral neuropathy [id number] G60.9 48 yo RH woman with painful paresthesi as in feet, ongoing since about spring 2018, progressiv e and symptoms worse at night. Painful to walk, stand for any amount of time and neuropathi c burning pain in feet, brings her to tears and interferes with sleep. She is morbidly obese with edema BLEs, chronic venous stasis changes with neuropathy exam findings involving length dependent large and small fibers and brisk reflexes which may suggest nutritiona l cause. She does not take any vitamins. Will schedule EMG BLE and one upper ext Check CBC, CMP, TFT and thyroid antibody panel, B12, folic acid, vit D and serum copper Neurocream Rx - apply to feet three times a day as needed - LTCSA terms discussed and contract signed - JOSE GUADALUPE reviewed Continue Neurontin 800 mg tid per PCP and Cymbalta also likely helping. I discussed addition of low dose of amitriptyl ine but I am concerned for chcf side effects including worsening dry mouth, weight gain and with chronic use, increased risk of dementia -- pt so counseled; defer at this time pending benefit of cream and vitamin tx. Begin: - Multivitam in daily - Alpha lipoic acid 600 mg daily - B complex (avoid greater than 10 mg B6 daily) - biotin 5000 mcg daily I will draw B12 and vit D levels and if you are deficient I may have you add vit D or B12 - B12 if indicated to maintain goal B12 level > 500, prefer > 600 - Vitamin D if indicated for goal vitamin D 25 OH level of 50-60 Sign up for portal RTC 6 months or sooner PRN Neuropathic pain [id number] M79.2 burning pain both feet, brings her to tears, can't sleep, progressiv e over 1 year [id number] YAS CHEEMA MD NEUROLOGY [facility] [address] [place] [address] 06/26/2019 10:48:16 06/26/2019 13:11:08 Idiopathic peripheral neuropathy [id number] G60.9 She does not take any vitamins. Will schedule EMG BLE and one upper ext Check CBC, CMP, TFT and thyroid antibody panel, B12, folic acid, vit D and serum copper Neurocream Rx - LTCSA terms discussed and contract signed Begin: - Multivitam in daily - Alpha lipoic acid 600 mg daily - B complex (avoid greater than 10 mg B6 daily) - biotin 5000 mcg daily I will draw B12 and vit D levels and if you are deficient I may have you add vit D or B12 - B12 if indicated to maintain goal B12 level > 500, prefer > 600 - Vitamin D if indicated for goal vitamin D 25 OH level of 50-60 Sign up for portal RTC 6 months or sooner PRN Skin sensa tion disturbance [id number] R20.9 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 [id number] G56.01 Health Concerns Section Related Observation LastModified by Organization Detai ls LastModified Time None Recorded Concern Status LastModified by Organization Details LastModified Time None Recorded Advance Directives Directive None Recorded Payers Insurance Date Sequence Insurance Name Policy Number Policy Rudd Covered Member ID Rudd Member ID Guarantor Name 01/12/2020 1 [place] [id number] Jg Stout [id number] Monalisa Simon Stout 06/21/2020 PAYMENT PLAN Monalisa Stout Notes Date Note Type Note Provider Name and Address Organization Details Recorded Time 02/13/2018 text/html Ms Monalisa Cavanaugh ad is a 62 woman with a BMI of 62 who presents today for evaluation of knee pain at the request of Dr Robert Parr. She has had pain since July with recent MRI findings of meniscus root tear of the left knee. She has increased pain with increased weight bearing activities She denies locking, catching, giving away, or significant swelling, she denies prior history of trauma in recent or remote past. She has had some improvement in her pain with meloxicam. She has had 2 previous corticosteroid injection with some relief of her pain. She denies paresthesia or radicular symptoms. She has lost 100 pounds over the past 1-2 years and she has continued to lose weight despite limitations of her knee pain. She has lost 10 pounds in the past month or so per her report today. SILVESTRE HIGGINBOTHAM MD [address] [place], [address], [facility] 02/13/2018 12:25:48 03/06/2019 text/html 48 yo fe, new patient here for initial evaluation and consultation at the request of Opal Michel APRN for abnormal labs/elevated sed rate; she also reports bilateral hand and foot pain; she reports stiffness, muscle weakness and tenderness; she reports depression; she reports her latest labs indicate that her esr is raised; she reports improved with 40 mg prednisone daily; she reports her family history of sjogren's; she reports she is without interval infection; she currently denies bowel or bladder changes, chest pain, shortness of air, rashes, fevers and all others are negative TRINITY OSEGUERA APRN [address] [place], [address], [facility] 03/24/2019 16:36:29 06/26/2019 text/html Ms. Monalisa gonzalez is a 48 year-old woman presenting in consultation for neuropathic pain at the request of Dr. Robert Sanchez. Monalisa is having severe burning pain in her feet that began about a year ago but is getting much worse. It is keeping her awake at night and brings her to tears. The pain is present all the time but much worse at night. She can't tolerate even the sheets touching her feet. The outer 3 toes on her feet are numb. Stress and standing for long periods worsens the pain. When she walks, it feels like her feet are cinder blocks and it always feels like she has someting puffy on the bottom on her feet. When she gets up at night, she walks like Frankenstein. She denies significant weakness or imbalance. She denies symptoms in her hands. She has chronic low back pain. No radicular pain. No significant neck issues. No diabetes. She affirms occasional dry mouth but no dry tongue. Denies rash, bug, tick or spider bites. No known toxin exposures. She does not drink much alcohol, maybe a glass of wine a few times a year. She does not smoke or use illicit drugs. She has some improvement in pain a little bit with gabapentin 800 mg tid. She has had her best pain relief when on prednisone 20 mg bid. She also takes tramadol for chronic low back pain. She is also on duloxetine for anxiety/depression and has been on it for a long time. She also takes bupropion for depression/anxiety. She has PMH HTN, HLD and arthritis. She has chronic low back pain but no radicular pain. She denies diabetes, does not know her FBG. PCP notes also include RLS, morbid obesity, depression and peripheral neuropathy. PCP also reports chronically elevated ESR and CRP which he thinks may be related to morbid obesity. There is also note of an elevated TSH. She was started on Synthroid December 2018. She has Rx for ropinerole for RLS, but it's a little better so she doesn't take it often. She was prescribed tizanidine to help with sleep but it doesn't help and it caused her to be confused and do things she doesn't remember - she spilled water in bed. She has had evaluation per Trinity Oseguera with rheumatology and w/u negative, no treatment. Low back pain began after having a baby, she thought from the epidurals but imaging shows that she has bone spurs and disc desiccation. She wonders about the stains on the front of her legs. It's been there for a long time. Wants to know if it can be squeezed out. She keeps swelling in her legs. She has Lasix but uses it only as needed and not often. She does not take any vitamins. + FH of Sjogren's disease in her mother. No known FH of neuropathy. YAS CHEEMA MD [address] [facility] [place], [address], [place] - [facility] 06/26/2019 16:44:54 OBGyn Episode No OBEpisode recorded.
--- OUTSIDE RECORDS SUMMARY | 2024-09-15 13:40 | XMS_ITS | Encounter Summary ---
Author Organization Healthcare Address [address] [place] [address] Care Team Providers Care Manager Union Name Role Phone Unavailable Primary Care Provider Unavailabl e Reason for Referral * Consultation (Routine) - Authorized Specialty Diagnoses / Procedures Referred By Contac t Referred To Contact Nephrology Diagnoses Chronic kidney disease, stage IV (severe) (CMS/HCC) Opal Michel, FLARE BREAKER [address] [address] Phone: tel: fax: [facility] [address] [address] Phone: tel: Referral ID Status Reason Start Date Expiration Date Visits Requested Visits Authorized [id number] Authorized Specialty Services Required 06/28/2023 12/27/2024 1 1 Encounter Details Date Type Department Care Team (Late st Contact Info) Description 06/28/2023 Community Orders [facility] [address] [place] [address] Opal Michel, FLARE BREAKER [address] [address] Chronic kidney disease, stage IV (severe) (CMS/HCC) [...]
--- OUTSIDE RECORDS SUMMARY | 2024-09-15 13:40 | XMS_ITS | Clinical Summary ---
Author Organization Healthcare Address [address] [place] [address] Care Team Providers Care Musical Instrument Maker Or Repairer Name Role Phone Unavailable Primary Care Provider [...] 2020 UKY-Zoster Vaccines (1 of 2) 2020 [id number] Vaccine (2023- season) 2023 03/06/2021, 06/06/2020, 05/09/2020 [...]
--- NOTE | 2024-09-15 13:43 | ED_ITS ---
<Statement entered by Kathryn Hill DO - 09/15/24 22:02> I was consulted by the KATIUSKA, and we discussed the complexity of the problems being addressed. I approved the treatment and management plan for this patient's care in the emergency department, thus performing a substantive portion of the medical decision making. Kathryn Hill DO Discharge Plan Disposition Patient Disposition: Admitted Condition: Fair Clinical Impressions Clinical Impression: Failure of outpatient treatment Community acquired pneumonia Qualifiers: Laterality: left Lung location: lower lobe of lung Qualified Code(s): J18.9 - Pneumonia, unspecified organism RAD (reactive airway disease) with wheezing Qualifiers: Asthma severity: moderate Discharge ED Provider: Jeison Esteban General Adult HPI General Chief complaint: Shortness of Breath/Dyspnea Stated complaint: SOA, body aches, weakness, +pneumonia Time Seen by Provider: 09/15/24 13:43 History of Present Illness HPI narrative: Patient presents for evaluation of dyspnea. Patient reports that she has had 2 weeks of a lower respiratory tract infection. Patient's PCP prescribed 2 rounds of doxycycline that did not improve the patient's symptoms. She has gotten progressively more dyspneic over the last 2 weeks. She went to the urgent care center on Sunday and was given a prescription for a Z-West. She again has had no improvement and had a chest x-ray ordered by her PCP today that showed a right lower lobe pneumonia. At baseline patient is a type II diabetic but is a never smoker has no known history of pulmonary cardiovascular disease. She reports subjective fevers but no hemoptysis hematochezia melena hematemesis hematuria dysuria nausea vomiting or diarrhea. Related Data Home Medications ?Medication ?Instructions ?Recorded ?Confirmed furosemide 40 mg tablet 40 mg PO NEEDED PRN Edema 07/24/22 09/15/24 tirzepatide 5 mg/0.5 mL 5 mg SQ WEEKLY 07/24/2208/25 subcutaneous pen injector (Mounjaro) finerenone 20 mg tablet (Kerendia) 20 mg PO DAILY 08/2409/15/24 losartan 50 mg tablet 50 mg PO DAILY 09/08/2408/25 tizanidine 4 mg tablet 4 mg PO DIRECTED PRN Pain 09/08/24 09/15/24 tramadol 50 mg tablet 50 mg PO TID 09/08/24 dextromethorphan IR 45 1 tab PO DAILY 09/15/2408/25 mg-bupropion ER 105 mg biphasic tablet (Auvelity) finerenone 20 mg tablet (Kerendia) 20 mg PO DAILY 08/2509/15/24 gabapentin 100 mg capsule 100 mg PO BID 09/15/2409/15 Previous Rx's ?Medication ?Instructions ?Recorded albuterol sulfate 90 mcg/actuation 2 puff inhalation Q ID PRN 09/12/24 aerosol inhaler (Ventolin HFA) shortness of breath or wheezing #8.5 grams Allergies Allergy/AdvReac Type Severity Reaction Status Date / Time No Known Allergies Allergy Verified 09/12/24 17:24 [facility] Disclaimer: The information contained in this section may have been updated after the patient was seen, as this information can be updated by other users. Medical History Arthritis Kidney disorder HTN (hypertension), benign T2DM (type 2 diabetes mellitus) Depression Asthma Anxiety Surgical History Hx of tonsillectomy Social History (Updated 09/15/24 @ 18:14 by Elida Angulo RN) Smoking Status: Never smoker alcohol intake: never substance use type: denies use current occupational status: employed Travel in the last 8 weeks?: None household members: other housing: house caffeine: Yes Have you lived/traveled outside [place] in past 30 days?: No Contact w/someone who lives/traveled outside US past 30 days?: No Exposure to someone with infectious disease in past 14 days?: No Do you have a fever (greater than 100.4 F or 38 C)?: No Have you tested positive for COVID-19?: No Exposed to someone with COVID-19 in past 14 days?: No Do you have a sore throat?: No Do you have a cough?: No Do you have any weakness?: No Do you have any diarrhea?: No Are you experiencing any unusual bleeding?: No Do you have any muscle aches/pain?: No Do you have any abdominal pain?: No Are you experiencing loss of taste or smell?: No Other Medical History Have you received the Flu Vaccine for this season: No Have you received the Pneumonia Vaccine: Yes ROS Obtained: Yes Systems reviewed as appropriate & no additional complaints except as documented Physical Exam General General appearance: alert and in no apparent distress Respiratory Respiratory exam: Present wheezes and accessory muscle use; Absent respiratory distress Cardiovascular Cardiovascular exam: Present regular rate Neurological Exam Neurological exam: Present alert, oriented X3 and CN II-XII intact Medical Decision Making Medical Records Medical records reviewed: Yes I reviewed the patient's medical records. Screening: Per USPSTF and CDC recommendations, given the prevalence of disease in our region, it is our hospital?s policy to screen for HIV and viral Hepatitis for all patients aged 18 and over and those with ongoing risk factors. Wilfrid Inquiry Pt receiving controlled substance: No Vital Signs: 09/15/24 13:15 09/15/24 13:25 09/15/24 13:33 Temperature 97.9 F Temperature Source Oral Pulse Rate 80 68 Pulse Rate [Left Radial] 88 Respiratory Rate 17 Blood Pressure 138/87 135/70 Blood Pressure [Right Arm] 138/87 Blood Pressure Mean 102 91 Blood Pressure Mean [Right Arm] 104 Blood Pressure Source Blood Pressure Source [Right Arm] Automatic Cuff Blood Pressure Position Blood Pressure Position [Right Arm] Sitting 02 Sat by Pulse Oximetry 98 95 90 L Oxygen Delivery Method Room Air 09/15/24 14:00 09/15/24 14:51 09/15/24 15:01 Temperature Temperature Source Pulse Rate 80 96 H 96 H Pulse Rate [Left Radial] Respiratory Rate 18 20 Blood Pressure 140/96 H 140/69 115/79 Blood Pressure [Right Arm] Blood Pressure Mean 106 88 92 Blood Pressure Mean [Right Arm] Blood Pressure Source Blood Pressure Source [Right Arm] Blood Pressure Position Blood Pressure Position [Right Arm] 02 Sat by Pulse Oximetry 99 100 98 Oxygen Delivery Method 09/15/24 15:32 09/15/24 16:01 09/15/24 16:31 Temperature Temperature Source Pulse Rate 98 H 95 H 94 H Pulse Rate [Left Radial] Respiratory Rate 20 18 18 Blood Pressure 141/68 H 125/72 131/75 Blood Pressure [Right Arm] Blood Pressure Mean 76 87 96 Blood Pressure Mean [Right Arm] Blood Pressure Source Blood Pressure Source [Right Arm] Blood Pressure Position Blood Pressure Position [Right Arm] 02 Sat by Pulse Oximetry 98 97 98 Oxygen Delivery Method 09/15/24 17:00 09/15/24 17:00 09/15/24 17:00 Temperature Temperature Source Pulse Rate 105 H Pulse Rate [Left Radial] Respiratory Rate 18 Blood Pressure 143/83 H Blood Pressure [Right Arm] Blood Pressure Mean 103 Blood Pressure Mean [Right Arm] Blood Pressure Source Blood Pressure Source [Right Arm] Blood Pressure Position Blood Pressure Position [Right Arm] 02 Sat by Pulse Oximetry 97 Oxygen Delivery Method Room Air Room Air 09/15/24 17:05 Temperature 97.8 F Temperature Source Oral Pulse Rate 89 Pulse Rate [Left Radial] Respiratory Rate 16 Blood Pressure 143/83 H Blood Pressure [Right Arm] Blood Pressure Mean Blood Pressure Mean [Right Arm] Blood Pressure Source Automatic Cuff Blood Pressure Source [Right Arm] Blood Pressure Position Supine Blood Pressure Position [Right Arm] 02 Sat by Pulse Oximetry Oxygen Delivery Method Room Air Lab Data Lab results reviewed: Yes I reviewed the patient's lab results. Lab Results 09/15/24 13:30: WBC 8.9, RBC 4.56, Hgb 13.9, Hct 40.0, MCV 87.7, MCH 30.5, MCHC 34.8, RDW 12.4, Plt Count 377, MPV 10.6 H, Neut % (Auto) 71.7, Lymph % (Auto) 17.7, Placer % (Auto) 6.1, Eos % (Auto) 3.1, Baso % (Auto) 0.6, Neut # (Auto) 6.4, Lymph # (Auto) 1.6, Placer # (Auto) 0.5, Eos # (Auto) 0.3, Baso # (Auto) 0.1, PT 10.4, INR 0.93, Sodium 130 L, Potassium 4.4, Chloride 99, Carbon Dioxide 18 L, A nion Gap 17.4 H, BUN 20 H, Creatinine 2.10 H, Estimated Creat Clear 30, E stimated GFR 25 L, Est GFR ( Amer) 30 L, Glucose 91, Hemoglobin A1c 6.1 H , Calcium 9.9, Magnesium 2.1, Total Bilirubin 0.6, AST 51 H, ALT 85 H, Alkaline Phosphatase 459 H, Troponin I < 0.01, NT-Pro-B Natriuret Pep 835 H, Total Protein 7.4, Albumin 4.0, Globulin 3.4 H, Albumin/Globulin Ratio 1.2, Procalcitonin 0.737 09/15/24 13:30: Procalcitonin 0.664 09/15/24 14:47: VBG pH 7.42 H, VBG pCO2 27.4 L, VBG pO2 40.0, VBG HCO3 17.3 L, V BG Total CO2 18.2 L, VBG O2 Saturation 78.5 H, VBG Base Excess -7.2 L, VBG Lactic Acid 1.9 09/15/24 14:53: Urine Color Yellow, Urine Appearance Clear, Urine pH 6.5, Ur Specific [place] <= 1.005, Urine Protein Negative, Urine Glucose (UA) 1+, Urine Ketones Trace, Urine Blood Negative, Urine Nitrate Negative, Urine Bilirubin Negative, Urine Urobilinogen 0.2, Ur Leukocyte Esterase Negative, Urine WBC 3-5, Ur Squamous Epith Cells 3-5, Urine Bacteria Trace 09/15/24 13:30 09/15/24 13:30 Orders (Tests/Meds): ED MEDICATIONS Generic Name Dose Route Start Last Admin Trade Name Freq PRN Reason Stop Dose Admin Acetaminophen 650 mg 09/15/24 16:55 Acetaminophen 325mg Tab PO 10/15/24 16:54 Q4HP PRN Fever or Mild Pain (1-3) Albuterol/Ipratropium 3 ml 09/15/24 18:00 09/15/24 18:51 Ipratropium/Albuterol 3 Ml [facility] 10/15/24 17:59 3 ml Q4RT ELKIN Administration Budesonide 0.5 mg 09/15/24 18:00 09/15/24 18:51 Budesonide 0.5mg/2ml [facility] 10/15/24 17:59 0.5 mg BIDRT ELKIN Administration Enoxaparin Sodium 40 mg 09/16/24 09:00 Enoxaparin 40mg/0.4ml Syringe SUBCUT 10/16/24 08:59 DAILY ELKIN Ceftriaxone Sodium 1 gm/ 50 mls @ 100 mls/hr 09/15/24 16:00 09/15/24 16:28 Sodium Chloride IV 09/25/24 15:59 100 mls/hr Q24H ELKIN Administration Azithromycin 500 mg/ Sodium 250 mls @ 250 mls/hr 09/15/24 16:00 09/15/24 16:45 Chloride IV 09/25/24 15:59 250 mls/hr Q24H ELKIN Administration Ondansetron HCl 4 mg 09/15/24 16:55 Ondansetron 4mg/2ml Vial IV 10/15/24 16:54 Q8HP PRN Nausea Prednisone 40 mg 09/16/24 09:00 Prednisone 20mg Tab PO 10/16/24 08:59 DAILY ELKIN Sodium Chloride 3 ml 09/15/24 14:09 09/15/24 18:52 Sodium Chloride 3% 15ml [facility] 10/15/24 14:08 3 ml ONCE PRN Administration INDUCE [employer] Discontinued Medications Generic Name Dose Route Start Last Admin Trade Name Freq PRN Reason Stop Dose Admin Acetaminophen 1,000 mg 09/15/24 14:03 09/15/24 14:20 Acetaminophen 500mg Tab PO 09/15/24 14:04 500 mg ONCE ONE Administration Albuterol/Ipratropium 9 ml 09/15/24 14:03 09/15/24 14:18 Ipratropium/Albuterol 3 Ml [facility] 09/15/24 14:04 9 ml ONCE ONE Administration Dexamethasone Sodium Phosphate 10 mg 09/15/24 14:03 09/15/24 14:20 Dexamethasone 4mg/Ml 5ml Mdv IV 09/15/24 14:04 10 mg ONCE ONE Administration Magnesium Sulfate 2 gm in 50 mls @ 50 mls/hr 09/15/24 14:07 09/15/24 14:18 Magnesium Sulfate 2gm/50ml Premix IV 09/15/24 15:06 50 mls/hr ONCE ONE Administration Midazolam HCl 2 mg 09/15/24 14:53 09/15/24 14:59 Midazolam 2mg/2ml Vial IV 09/15/24 14:54 2 mg ONCE ONE Administration Sodium Chloride 3 ml 09/15/24 17:56 Sodium Chloride 3% 15ml [facility] 10/15/24 17:55 ONCE PRN INDUCE SPUTUM [employer]LECTION ORDERS Category Date Time Status CT chest wo con Stat Cat Scan 09/15/24 14:16 Completed BNP [NT Pro Brain Natriuretic Pep.] Stat Lab 09/15/24 13:30 Completed CBC w/Auto Diff [Complete Blood Count Auto Diff] Stat Lab 09/15/24 13:30 Completed CMP [Comprehensive Metabolic Panel] Stat Lab 09/15/24 13:30 Completed Full Resp Panel w/COVID ([facility]) Routine Lab 09/15/24 14:48 Received INR [Prothrombin Time INR] Stat Lab 09/15/24 13:30 Completed Magnesium Stat Lab 09/15/24 13:30 Completed Procalcitonin Stat Lab 09/15/24 13:30 Completed Trop I [Troponin I] Stat Lab 09/15/24 13:30 Completed UA [Urinalysis and Microscopic] Stat Lab 09/15/24 14:53 Completed Blood Culture Stat Micro 09/15/24 14:42 Received Sputum Culture & Gram Stain Stat Micro 09/15/24 14:09 Ordered VBG [Venous Blood Gas] Stat RT 09/15/24 14:47 Completed Medical Decision Narrative: In summary patient is a 53-year-old female who presents to the emergency department for evaluation of dyspnea. Patient is hemodynamically stable with blood pressure 138/87 pulse 88 respiratory rate is 17 satting at 98% on room air upon arrival, afebrile at 97.9. Physical exam is remarkable for no increased work of breathing although she does appear to be tachypneic, breath sounds show diffuse inspiratory and expiratory wheezes in all 4 fuller of breath sounds heard at bases. Cardiovascular is S1-S2 regular rate and rhythm without murmurs gallops rubs or thrills. Abdomen soft nontender no rebound or guarding no rigidity. Bowel sounds normoactive.. Differential diagnosis includes reactive airway disease versus viral pneumonia versus bacterial pneumonia versus adult onset asthma etc. Initial workup will be conducted with hematologic labs CT of the chest without contrast as patient has refused IV contrast due to concerns of an allergic reaction, VBG twelve-lead EKG full respiratory panel blood cultures and sputum cultures.. Initial interventions include IV magnesium DuoNeb Decadron continuous cardiac monitoring pulse oximetry. Initial workup reviewed by me shows that her hematologic labs are significant for a normal white count normal H&H no neutrophilic shift, INR 0.93, VBG shows a pH of 7.42 VBG pCO2 is 27.4 lactic acid is 1.9 sodium is 130 CO2 is 18 anion gap is 17.4 BUN is 20 creatinine is 2.1 GFR is 25 glucose was 91 hemoglobin A1c was 6.1 AST was 51 ALT is 85 alk phos 459 troponin is less than 0.01 NT proBNP is 835 procalcitonin was 0.664 urinalysis was bland and my informal interpretation of her CT scan of the chest without contrast shows multifocal pneumonia in the left lung prior to radiology read.. Upon repeat evaluation patient is still wheezing with tachypnea and subjectively still reports dyspnea. I have started her on Rocephin and Zithromax. Given this I had interactive discussion with hospital medicine regarding patient MARRERO presentation and management given her outpatient failure she will be admitted for further evaluation and care. Critical Care Critical Care Time Critical Care Time: Yes Attestation: On 09/15/24, the high probability of a clinically significant, sudden or life threatening deterioration of the following system(s) required my full and direct attention, intervention and personal management. The time I documented below is in addition to time spent performing reported procedures but includes the following listed in this critical care notation. Total Time Total Critical Care Time: 30
[2024-09-15 14:09] LABS: Basophils # 0.1 K/mm3 (0-0.2); Basophils % 0.6 % (0.1-2.0); Eosinophils # 0.3 Kmm3 (0.0-0.4); Eosinophils % 3.1 % (0.1-12.0); Hemoglobin 13.9 g/dL (12.2-16.2); Immature Granulocytes # 0.07 10^3uL; Immature Granulocytes % 0.8 %; Lymphocytes # 1.6 K/mm3 (0.7-4.5); Lymphocytes % 17.7 % (10-50); Mean Corpuscular HGB Conc 34.8 g/dL (31.8-35.4); Mean Corpuscular Hemoglobin 30.5 pg (27.0-31.2); Mean Corpuscular Volume 87.7 fl (81-99); Mean Platelet Volume 10.6 fl (7.4-10.4); Monocytes # 0.5 K/mm3 (0.1-1.0); Monocytes % 6.1 % (1.7-9.3); Neutrophils # 6.4 K/mm3 (1.8-7.8); Neutrophils % 71.7 % (37.0-80.0); Nucleated Red Blood Cells # 0 10^3/uL; Nucleated Red Blood Cells % 0 %; Platelet Count 377 K/mm3 (142-424); Red Blood Count 4.56 M/mm3 (4.20-5.40); Red Cell Distribution Width 12.4 % (11.5-17.5); Red Cell Distribution Width-SD 39.8 fL; White Blood Count 8.9 K/mm3 (4.8-10.8)
[2024-09-15 14:13] LABS: Chloride 99 mmol/L (98-107); Potassium 4.4 mmoL/L (3.5-5.1); Sodium 130 mmol/L (136-145)
[2024-09-15 14:16] LABS: Alanine Aminotransferase 85 U/L (12-78); Albumin/Globulin Ratio 1.2 (1.1-1.8); Alkaline Phosphatase 459 U/L (38-126); Anion Gap 17.4 mEq/L (5-15); Aspartate Amino Transferase 51 U/L (14-36); Bilirubin,Total 0.6 mg/dl (0.2-1.3); Blood Urea Nitrogen 20 mg/dl (7-17); Calcium 9.9 mg/dl (8.4-10.2); Carbon Dioxide 18 mmol/L (22.0-30.0); Creatinine Clearance Estimated 30 mL/min (50-200); Estimated Glomerular Filt Rate 25 ml/min (>60); GFR (African American) 30 ML/MIN (>60); Globulin 3.4 g/dL (1.3-3.2); Glucose 91 mg/dl (74-100); Magnesium 2.1 mg/dl (1.6-2.3); Total Protein,Serum 7.4 g/dl (6.3-8.2)
--- NOTE | 2024-09-15 14:16 | CT_ITS ---
FINAL REPORT TECHNIQUE: Axial CT without IV contrast administration. This study was performed with techniques to keep radiation doses as low as reasonably achievable, (ALARA). Individualized dose reduction techniques using automated exposure control or adjustment of mA and/or kV according to the patient''s size were employed. CLINICAL HISTORY: Shortness of breath, wheezing x 2 weeks COMPARISON: none FINDINGS: There is patchy nodular infiltrate in the left lower lobe and to a lesser extent the left upper lobe compatible with pneumonia. The right lung is clear aside from chronic changes in the lower lobe. No pleural or pericardial effusion is seen. No adenopathy or mass lesion is present. IMPRESSION: Multifocal left lung pneumonia. No effusion or mass. Reviewed, Interpreted and Dictated by Zohra Sloan MD Transcribed by Renuka Gruber Authenticated and [facility]
[2024-09-15] MEDS: MAGNESIUM SULFATE IN WATER 2 GM/50 ML PIGGYBACK IV (14:18)
[2024-09-15] MEDS: IPRATROPIUM/ALBUTEROL 3 ML NEB 9 ML IH (14:18)
[2024-09-15 14:19] LABS: INR 0.93 (0.9-1.1); Prothrombin Time 10.4 seconds (10.1-12.5)
[2024-09-15] MEDS: ACETAMINOPHEN 500MG TAB 1000 MG PO (14:20)
[2024-09-15] MEDS: DEXAMETHASONE 4MG/ML 5ML MDV 10 MG IV (14:20)
[2024-09-15] MEDS: SODIUM CHLORIDE 3% 15ML NEB 3 ML IH ×2 (14:23→18:52)
[2024-09-15 14:26] LABS: NT Pro Brain Natriuretic Pep. 835 pg/mL (0-125)
[2024-09-15 14:34] LABS: Troponin I < 0.01 ng/ml (0.00-0.034)
[2024-09-15 14:53] LABS: Adenovirus,PCR Not Detected (NotDetected); Bordetella Pertussis Not Detected (NotDetected); Chlamydophila Pneumoniae, PCR Not Detected (NotDetected); Coronavirus 19, PCR Not Detected (NotDetected); Coronavirus 229E Not Detected (NotDetected); Coronavirus NL63 Not Detected (NotDetected); Coronavirus OC43 Not Detected (NotDetected); Coronovirus HKU1,PCR Not Detected (NotDetected); Human Metapneumovirus Not Detected (NotDetected); Influenza A, PCR Not Detected (NotDetected); Influenza AH1, 2009 Not Detected (NotDetected); Influenza AH1, PCR Not Detected (NotDetected); Influenza AH3,PCR Not Detected (NotDetected); Influenza B, PCR Not Detected (NotDetected); Mycoplasma Pneumoniae, PCR Not Detected (NotDetected); Parainfluenza 1, PCR Not Detected (NotDetected); Parainfluenza 2, PCR Not Detected (NotDetected); Parainfluenza 3, PCR Not Detected (NotDetected); Parainfluenza 4, PCR Not Detected (NotDetected); Respiratory Syncytial Virus Not Detected (NotDetected); Rhinovirus/Enterovirus Not Detected (NotDetected)
[2024-09-15 14:56] LABS: Lactate Venous 1.9 mmol/L (0.4-2.0); VBG Base Excess -7.2 mmol/L (-2.4-2.3); VBG HCO3 17.3 mmol/L (23-30); VBG Oxygen Saturation 78.5 % (50-70); VBG PCO2 27.4 mmol/L (35-51); VBG PH 7.42 mmol/L (7.31-7.41); VBG Total CO2 18.2 mmol/L (23-27)
[2024-09-15 14:59] LABS: Microscopic, Urine URINE MICROSCOPIC (MICROSCOPIC)
[2024-09-15] MEDS: MIDAZOLAM 2MG/2ML VIAL 2 MG IV (14:59)
[2024-09-15 15:03] LABS: Appearance,Urine CLEAR (Clear); Bilirubin,Urine Negative (Negative); Blood, Urine Negative (Negative); Color,Urine YELLOW (Yellow); Glucose,Urine (UA) 1+ (Negative); Ketones,Urine TRACE (Negative); Leukocyte Esterase,Urine Negative (Negative); Nitrate,Urine Negative (Negative); PH,Urine 6.5 (5.0-8.5); Protein,Urine Negative (Negative); Specific Gravity, Urine <= 1.005 (1.005-1.030); Urobilinogen,Urine 0.2 EU/dl (0.2)
[2024-09-15 15:22] LABS: Bacteria,Urine Trace /lpf
--- NOTE | 2024-09-15 15:40 | PC.NURSE ---
pt to RAD @ this time
[2024-09-15] MEDS: CEFTRIAXONE 1 GM 1 GM in 0.9 % SODIUM CHLORIDE 50 ML IV (16:28)
--- NOTE | 2024-09-15 16:30 | PC.NURSE ---
notified house of admission
[2024-09-15] MEDS: AZITHROMYCIN 500 MG in 0.9 % SODIUM CHLORIDE 250 ML 250 MG IV (16:45)
--- NOTE | 2024-09-15 17:04 | PC.NURSE ---
Report called to Frances LAUREN
[2024-09-15 17:27] LABS: Procalcitonin 0.737 ng/mL (0.0-2.0)
--- NOTE | 2024-09-15 17:52 | PC.NURSE ---
arrived by w/c from ED
--- NOTE | 2024-09-15 18:01 | EXP.HP ---
History of Present Illness *Admission Date: 09/15/24 *Reason for visit:: Shortness of breath *History of present illness: Aleisha Stout is a 53-year-old female with a medical history significant for hypertension, type 2 diabetes, CKD stage IV who presents with 1 month onset of progressive shortness of breath. She states she began having increased work of breathing, wheezing, cough about a month ago at which point she was given a course of doxycycline and steroids. This mildly alleviated symptoms, but without resolution. Two weeks ago she got another round of doxycycline, again without resolution. Over the past 2 days, she has had a Rocephin shot with her PCP. Today, CXR was obtained by her PCP which showed left basilar pneumonia and patient continued to have increased work of breathing, diffuse wheezing at which point PCP advised patient to proceed to the ED. On arrival, vital signs were stable. However, she had significant bilateral wheezing and decreased air movement. She was given DuoNebs x 3, dexamethasone 10 mg, magnesium without improvement in symptoms. CT chest was obtained which showed multifocal left-sided pneumonia. On my evaluation of patient, she appeared uncomfortable and anxious. Continue to have significant moderate airway tightness with diffuse wheezing. On room air saturating 97% however. Gave option for patient to be discharged with antibiotics, steroids, nebs and Trelegy with close follow-up with pulmonology, or admission for treatment. Patient chose the latter. Case discussed with ED provider and decision was made to admit patient for reactive airway disease, multifocal pneumonia. [facility] Disclaimer: The information contained in this section may have been updated after the patient was seen, as this information can be updated by other users. Medical History Arthritis Kidney disorder HTN (hypertension), benign T2DM (type 2 diabetes mellitus) Depression Asthma Anxiety Surgical History Hx of tonsillectomy Social History Smoking Status: Never smoker alcohol intake: never substance use type: denies use current occupational status: employed Travel in the last 8 weeks?: None household members: other housing: house caffeine: Yes Other Medical History Have you received the Flu Vaccine for this season: No Have you received the Pneumonia Vaccine: Yes Meds Home Medications and Allergies Home Medications ?Medication ?Instructions ?Recorded ?Confirmed ?Type furosemide 40 mg tablet 40 mg PO DAILY Fluid 07/24/22 09/12/24 History tirzepatide 5 mg/0.5 mL 5 mg SQ WEEKLY 07/24/22 09/12/24 History subcutaneous pen injector (Micah) dextromethorphan IR 45 1 tab PO ONCE 09/08/24 09/12/24 History mg-bupropion ER 105 mg biphasic tablet (Auvelity) finerenone 20 mg tablet (Kerendia) mg PO DAILY 09/08/24 09/12/24 History gabapentin 800 mg tablet 400 mg PO TID Neuropathy 09/08/24 09/12/24 History losartan 50 mg tablet mg PO DAILY 09/08/24 09/12/24 History prednisone 1 mg tablet mg PO DAILY 09/08/24 09/12/24 History tizanidine 4 mg tablet 4 mg PO DIRECTED PRN Pain 09/08/24 09/08/24 History tramadol 50 mg tablet mg PO DAILY 09/08/24 09/08/24 History albuterol sulfate 90 mcg/actuation 2 puff inhalation QID PRN 09/12/24 09/12/24 Rx aerosol inhaler (Ventolin HFA) shortness of breath or wheezing #8.5 grams azithromycin 250 mg tablet 250 mg PO QDAY #6 tabs 09/12/24 09/12/24 Rx (Zithromax Z-West) guaifenesin 400 mg tablet 400 mg PO Q4H PRN cough #30 tabs 09/12/24 09/12/24 Rx New Prescriptions to Start Prescriptions: Allergies Allergy/AdvReac Type Severity Reaction Status Date / Time No Known Allergies Allergy Verified 09/12/24 17:24 Exam Data for Last 24 hours Vital signs and Labs for Last 24 Hours: Temp Pulse Resp BP Pulse Ox O2 Del Method 97.8 F 89 16 143/83 H 97 Room Air 09/15/24 17:05 09/15/24 17:05 09/15/24 17:05 09/15/24 17:05 09/15/24 17:00 09/15/24 17:05 Laboratory Results - last 24 hr 09/15/24 13:30: WBC 8.9, RBC 4.56, Hgb 13.9, Hct 40.0, MCV 87.7, MCH 30.5, MCHC 34.8, RDW 12.4, Plt Count 377, MPV 10.6 H, Neut % (Auto) 71.7, Lymph % (Auto) 17.7, [place] % (Auto) 6.1, Eos % (Auto) 3.1, Baso % (Auto) 0.6, Neut # (Auto) 6.4, Lymph # (Auto) 1.6, [place] # (Auto) 0.5, Eos # (Auto) 0.3, Baso # (Auto) 0.1, PT 10.4, INR 0.93, Sodium 130 L, Potassium 4.4, Chloride 99, Carbon Dioxide 18 L, Anion Gap 17.4 H, BUN 20 H, Creatinine 2.10 H, Estimated Creat Clear 30, Estimated GFR 25 L, Est GFR ( Amer) 30 L, Glucose 91, Calcium 9.9, Magnesium 2.1, Total Bilirubin 0.6, AST 51 H, ALT 85 H, Alkaline Phosphatase 459 H, Troponin I < 0.01, NT-Pro-B Natriuret Pep 835 H, Total Protein 7.4, Albumin 4.0, Globulin 3.4 H, Albumin/Globulin Ratio 1.2, Procalcitonin 0.737 09/15/24 14:47: VBG pH 7.42 H, VBG pCO2 27.4 L, VBG pO2 40.0, VBG HCO3 17.3 L, VBG Total CO2 18.2 L, VBG O2 Saturation 78.5 H, VBG Base Excess -7.2 L, VBG Lactic Acid 1.9 09/15/24 14:53: Urine Color Yellow, Urine Appearance Clear, Urine pH 6.5, Ur Specific [place] <= 1.005, Urine Protein Negative, Urine Glucose (UA) 1+, Urine Ketones Trace, Urine Blood Negative, Urine Nitrate Negative, Urine Bilirubin Negative, Urine Urobilinogen 0.2, Ur Leukocyte Esterase Negative, Urine WBC 3-5, Ur Squamous Epith Cells 3-5, Urine Bacteria Trace I & O for Last 24 hours: Intake & Output 09/12/24 09/13/24 09/14/24 09/15/24 23:59 23:59 23:59 23:59 Weight 122.47 kg Constitutional Constitutional: obese *Routine HEENT Exam Head: Present normocephalic Eye: Present EOMI and PERRL ENT: Present mucous membranes moist *Routine Neck Exam Neck: Present supple; Absent lymphadenopathy *Routine Respiratory Exam Respiratory: Present wheezes and diminished air movement; Absent CTA bilaterally *Routine Cardiovascular Exam Cardiovascular: Present RRR *Routine Abdominal Exam Abdominal: Present soft and normoactive bowel sounds; Absent tenderness *Routine Rectal Exam Rectal:: deferred *Routine Genitalia Exam Genitalia:: deferred *Routine Extremities Exam Extremities: Absent cyanosis, clubbing or edema *Routine Skin Exam Skin: Present warm; Absent rash *Routine Neurological Exam Neurological: Present alert and oriented X3 Assessment and Plan *Assessment and plan (1) RAD (reactive airway disease) with wheezing: Status: Acute Qualifiers: Asthma severity: moderate Category: Medical Code(s): J45.909 - Unspecified asthma, uncomplicated (2) Community acquired pneumonia: Status: Acute Qualifiers: Laterality: left Lung location: lower lobe of lung Qualified Code(s): J18.9 - Pneumonia, unspecified organism Category: Medical Code(s): J18.9 - Pneumonia, unspecified organism Plan Aleisha Stout is a 53-year-old female with a medical history significant for hypertension, type 2 diabetes, CKD stage IV who presents with 1 month onset of progressive shortness of breath. She states she began having increased work of breathing, wheezing, cough about a month ago at which point she was given a course of doxycycline and steroids. This mildly alleviated symptoms, but without resolution. Two weeks ago she got another round of doxycycline, again without resolution. Over the past 2 days, she has had a Rocephin shot with her PCP. Today, CXR was obtained by her PCP which showed left basilar pneumonia and patient continued to have increased work of breathing, diffuse wheezing at which point PCP advised patient to proceed to the ED. On arrival, vital signs were stable. However, she had significant bilateral wheezing and decreased air movement. She was given DuoNebs x 3, dexamethasone 10 mg, magnesium without improvement in symptoms. CT chest was obtained which showed multifocal left-sided pneumonia. On my evaluation of patient, she appeared uncomfortable and anxious. Continue to have significant moderate airway tightness with diffuse wheezing. On room air saturating 97% however. Gave option for patient to be discharged with antibiotics, steroids, nebs and Trelegy with close follow-up with pulmonology, or admission for treatment. Patient chose the latter. Case discussed with ED provider and decision was made to admit patient for reactive airway disease, multifocal pneumonia. #Reactive airway disease exacerbation #Suspected adult onset asthma #Multifocal left-sided community-acquired pneumonia ? Progressive shortness of breath, wheezing for [address] chest shows multifocal left-sided pneumonia. Failed 3 rounds of antibiotics. WBC normal, no signs of sepsis. ? Patient denies smoking/vaping history, new exposures, travel history. Does not recall having pneumonia ever. ? DuoNebs every 4 hours, Pulmicort twice daily. ? Prednisone 40 mg daily. ? IV ceftriaxone, azithromycin day 03/30. ? Follow-up sputum, blood cultures. ? Pulmonology consulted, pending further recommendations. Will need PFTs outpatient. #Type 2 diabetes #CKD stage IV ? Hemoglobin A1c 5.6% June 2023, follow-up repeat A1c. ? Creatinine 2.1, GFR 25. Stable. However, out of proportion to patient's age and recent A1c. Follow-up repeat A1c. ? Will require further about patient's CKD, and whether she has established with nephrology. ? Patient seems to be on finerenone, losartan for CKD. Will recommend SGLT2i on discharge and nephrology referral. #Hypertension ? Continue home medications once reconciled. Full code DVT prophylaxis: Lovenox 40 mg
[2024-09-15] MEDS: IPRATROPIUM/ALBUTEROL 3 ML NEB IH ×2 (18:51→22:06)
[2024-09-15] MEDS: BUDESONIDE 0.5MG/2ML NEB 0.5 MG IH (18:51)
[2024-09-15 19:10] LABS: Procalcitonin 0.664 ng/mL (0.0-2.0)
[2024-09-15 20:32] LABS: Hemoglobin A1C 6.1 % (4.0-6.0)
[2024-09-15] MEDS: ACETAMINOPHEN 325MG TAB 650 MG PO (20:56)
[2024-09-15 21:41] LABS: Coronavirus 19, PCR Not Detected (NotDetected); Influenza A, PCR Not Detected (NotDetected); Influenza B, PCR Not Detected (NotDetected)
[2024-09-15] MEDS: TIZANIDINE 4MG TABLET 4 MG PO (22:00)
[2024-09-16] VITALS: BP 134/81; PULSE 94; RESP 18; TEMP 36.6; O2SAT 97
[2024-09-16 01:17] VITALS: PULSE 101; PULSE 97
[2024-09-16] MEDS: TRAMADOL 50MG TABLET 50 MG PO (01:17)
[2024-09-16] MEDS: IPRATROPIUM/ALBUTEROL 3 ML NEB IH ×2 (01:17→05:47)
[2024-09-16] MEDS: FAMOTIDINE 20MG TABLET 20 MG PO (02:57)
--- NOTE | 2024-09-16 03:52 | PC.NURSE ---
Pt AOx4. On room air. Pt reported some anxiety earlier in the shift. Pt c/o pain and soreness from coughing so often. Pt is currently resting in bed with eyes open, saying her symptoms have mostly relieved. Respirations even and unlabored. Bed is low, locked, and call light is in reach.
[2024-09-16 04:00] VITALS: BP 129/76; PULSE 105; RESP 16; TEMP 36.8; O2SAT 98; BMI 41.9
[2024-09-16] MEDS: BUDESONIDE 0.5MG/2ML NEB 0.5 MG IH (05:47)
[2024-09-16 05:48] VITALS: PULSE 100; PULSE 104
[2024-09-16 06:29] LABS: Basophils % 0.2 % (0.1-2.0); Hematocrit 39.7 % (37.0-47.0); Hemoglobin 13.2 g/dL (12.2-16.2); Immature Granulocytes # 0.19 10^3uL; Immature Granulocytes % 2.1 %; Lymphocytes # 0.9 K/mm3 (0.7-4.5); Lymphocytes % 9.6 % (10-50); Mean Corpuscular HGB Conc 33.2 g/dL (31.8-35.4); Mean Corpuscular Hemoglobin 29.3 pg (27.0-31.2); Mean Corpuscular Volume 88.2 fl (81-99); Mean Platelet Volume 10.3 fl (7.4-10.4); Monocytes # 0.1 K/mm3 (0.1-1.0); Monocytes % 1.5 % (1.7-9.3); Neutrophils % 86.6 % (37.0-80.0); Nucleated Red Blood Cells # 0 10^3/uL; Nucleated Red Blood Cells % 0 %; Platelet Count 335 K/mm3 (142-424); Red Cell Distribution Width 12.6 % (11.5-17.5); Red Cell Distribution Width-SD 40.7 fL; White Blood Count 9.2 K/mm3 (4.8-10.8)
[2024-09-16 06:52] LABS: Albumin Level 3.8 g/dl (3.5-5.0); Chloride 104 mmol/L (98-107); Potassium 4.6 mmoL/L (3.5-5.1); Sodium 135 mmol/L (136-145)
[2024-09-16 06:55] LABS: Alanine Aminotransferase 72 U/L (12-78); Albumin/Globulin Ratio 1.2 (1.1-1.8); Alkaline Phosphatase 396 U/L (38-126); Anion Gap 17.6 mEq/L (5-15); Aspartate Amino Transferase 37 U/L (14-36); Bilirubin,Total 0.4 mg/dl (0.2-1.3); Blood Urea Nitrogen 20 mg/dl (7-17); Calcium 9.8 mg/dl (8.4-10.2); Carbon Dioxide 18 mmol/L (22.0-30.0); Creatinine Clearance Estimated 34 mL/min (50-200); Estimated Glomerular Filt Rate 29 ml/min (>60); GFR (African American) 36 ML/MIN (>60); Globulin 3.1 g/dL (1.3-3.2); Glucose 129 mg/dl (74-100); Magnesium 2.4 mg/dl (1.6-2.3); Total Protein,Serum 6.9 g/dl (6.3-8.2)
[2024-09-16] MEDS: CALCIUM CARBONATE 500MG CHEWTAB 1000 MG PO (06:56)
[2024-09-16 06:59] LABS: Cholesterol 211 mg/dl (140-200); Triglycerides 65 mg/dl (30-150); VLDL Cholesterol 13 mg/dL (0-40)
[2024-09-16 07:00] LABS: Chol/HDL Ratio 3.1 (1-3.5); HDL Cholesterol 69 mg/dl (40-60)
[2024-09-16 07:10] LABS: Direct LDL Cholesterol 97.54 mg/dL (100-129)
[2024-09-16 07:24] LABS: Procalcitonin 0.434 ng/mL (0.0-2.0)
--- NOTE | 2024-09-16 07:45 | HMH.PHAINT1 ---
Pharmacy Intervention Comments: MEDICATION RECONCILIATION COMPLETED ON PATIENT USING EXTERNAL FILL HISTORY FROM PHARMACY. -IVORY DAVIS, ZECHARIAHD
[2024-09-16 08:00] VITALS: BP 125/68; PULSE 104; RESP 18; TEMP 36.7; O2SAT 96
[2024-09-16] MEDS: predniSONE 20MG TAB 40 MG PO (08:32)
[2024-09-16] MEDS: ENOXAPARIN 40MG/0.4ML SYRINGE 40 MG SUBCUT (08:33)
--- NOTE | 2024-09-16 09:31 | EXP.PULM.CON ---
History of Present Illness History of present illness: Ms. Sotut is a 53-year-old female no significant smoking history, presentation family history of asthma, hypertension diabetes mellitus CKD presented with progressively worsening shortness of breath and pulmonary was called for further evaluation and management. [facility] Disclaimer: The information contained in this section may have been updated after the patient was seen, as this information can be updated by other users. Medical History (Updated 09/16/24 @ 10:58 by Charito Morgan MD) Asthma exacerbation Pneumonia Arthritis Kidney disorder HTN (hypertension), benign T2DM (type 2 diabetes mellitus) Depression Asthma Anxiety Surgical History Hx of tonsillectomy Social History (Updated 09/15/24 @ 18:14 by Elida Angulo RN) Smoking Status: Never smoker alcohol intake: never substance use type: denies use current occupational status: employed Travel in the last 8 weeks?: None household members: other housing: house caffeine: Yes Have you lived/traveled outside [place] in past 30 days?: No Contact w/someone who lives/traveled outside [place] past 30 days?: No Exposure to someone with infectious disease in past 14 days?: No Do you have a fever (greater than 100.4 F or 38 C)?: No Have you tested positive for COVID-19?: No Exposed to someone with COVID-19 in past 14 days?: No Do you have a sore throat?: No Do you have a cough?: No Do you have any weakness?: No Do you have any diarrhea?: No Are you experiencing any unusual bleeding?: No Do you have any muscle aches/pain?: No Do you have any abdominal pain?: No Are you experiencing loss of taste or smell?: No Review of Systems Constitutional Constitutional: Reports anorexia, Reports body ache(s) and Reports fatigue Eyes Eyes: Denies eye discharge, Denies dry eyes, Denies irritation and Denies itchy eyes ENT Ears, Nose, Mouth, and Throat: Denies epistaxis, Denies facial pain, Denies lip swelling and Denies throat swelling *Cardiovascular Cardiovascular: Reports dyspnea and Reports dyspnea on exertion *Respiratory Respiratory: Reports change in phlegm color, Reports chest congestion, Reports cough, Reports dyspnea, Reports dyspnea on exertion, Reports excessive phlegm production, Denies hemoptysis, Denies pain on inspiration, Denies pain with cough and Reports wheezing *Gastrointestinal Gastrointestinal: Denies abdominal pain, Denies belching and Denies cramping *Musculoskeletal Musculoskeletal: Reports back pain, Reports myalgias and Reports other (No small joint swelling or Pain) Psychiatric Psychiatric: Denies homicidal ideation and Denies suicidal ideation Endocrine Endocrine: Reports fatigue and Denies heat intolerance Hematologic/Lymphatic Hematologic/Lymphatic: Denies easy bleeding and Denies lymphadenopathy Allergic/Immunologic Allergic/Immunologic: Denies itchy eyes, Denies lip swelling, Denies throat swelling and Reports wheezing Pulmonology Exam Inpatient Vital signs and Labs for Last 24 Hours: Temp Pulse Resp BP Pulse Ox O2 Del Method 98.1 F 104 H 18 125/68 96 Room Air 09/16/24 08:00 09/16/24 08:00 09/16/24 08:00 09/16/24 08:00 09/16/24 08:00 09/16/24 09:00 Laboratory Results - last 24 hr 09/15/24 13:30: WBC 8.9, RBC 4.56, Hgb 13.9, Hct 40.0, MCV 87.7, MCH 30.5, MCHC 34.8, RDW 12.4, Plt Count 377, MPV 10.6 H, Neut % (Auto) 71.7, Lymph % (Auto) 17.7, [place] % (Auto) 6.1, Eos % (Auto) 3.1, Baso % (Auto) 0.6, Neut # (Auto) 6.4, Lymph # (Auto) 1.6, [place] # (Auto) 0.5, Eos # (Auto) 0.3, Baso # (Auto) 0.1, PT 10.4, INR 0.93, Sodium 130 L, Potassium 4.4, Chloride 99, Carbon Dioxide 18 L, Anion Gap 17.4 H, BUN 20 H, Creatinine 2.10 H, Estimated Creat Clear 30, Estimated GFR 25 L, Est GFR ( Amer) 30 L, Glucose 91, Hemoglobin A1c 6.1 H, Calcium 9.9, Magnesium 2.1, Total Bilirubin 0.6, AST 51 H, ALT 85 H, Alkaline Phosphatase 459 H, Troponin I < 0.01, NT-Pro-B Natriuret Pep 835 H, Total Protein 7.4, Albumin 4.0, Globulin 3.4 H, Albumin/Globulin Ratio 1.2, Procalcitonin 0.737 09/15/24 13:30: Procalcitonin 0.664 09/15/24 14:47: VBG pH 7.42 H, VBG pCO2 27.4 L, VBG pO2 40.0, VBG HCO3 17.3 L, VBG Total CO2 18.2 L, VBG O2 Saturation 78.5 H, VBG Base Excess -7.2 L, VBG Lactic Acid 1.9 09/15/24 14:53: Urine Color Yellow, Urine Appearance Clear, Urine pH 6.5, Ur Specific [place] <= 1.005, Urine Protein Negative, Urine Glucose (UA) 1+, Urine Ketones Trace, Urine Blood Negative, Urine Nitrate Negative, Urine Bilirubin Negative, Urine Urobilinogen 0.2, Ur Leukocyte Esterase Negative, Urine WBC 3-5, Ur Squamous Epith Cells 3-5, Urine Bacteria Trace 09/15/24 : SARS-CoV-2 (PCR) Not detected, Influenza A Untype (PCR) Not detected, Influenza Type B (PCR) Not detected 09/16/24 05:50: WBC 9.2, RBC 4.50, Hgb 13.2, Hct 39.7, MCV 88.2, MCH 29.3, MCHC 33.2, RDW 12.6, Plt Count 335, MPV 10.3, Neut % (Auto) 86.6 H, Lymph % (Auto) 9.6 L, [place] % (Auto) 1.5 L, Eos % (Auto) 0.0 L, Baso % (Auto) 0.2, Neut # (Auto) 8.0 H, Lymph # (Auto) 0.9, [place] # (Auto) 0.1, Eos # (Auto) 0.0, Baso # (Auto) 0.0, Sodium 135 L, Potassium 4.6, Chloride 104, Carbon Dioxide 18 L, Anion Gap 17.6 H, BUN 20 H, Creatinine 1.80 H, Estimated Creat Clear 34, Estimated GFR 29 L, Est GFR ( Amer) 36 L, Glucose 129 H D, Calcium 9.8, Magnesium 2.4 H D, Total Bilirubin 0.4, AST 37 H D, ALT 72, Alkaline Phosphatase 396 H, Total Protein 6.9, Albumin 3.8, Globulin 3.1, Albumin/Globulin Ratio 1.2, Triglycerides 65, Cholesterol 211 H, LDL Cholesterol Direct 97.54 L, VLDL Cholesterol 13, HDL Cholesterol 69 H, Cholesterol/HDL Ratio 3.1, Procalcitonin 0.434, TSH 0.70 I & O for Labs for Last 24 Hours: Intake & Output 09/13/24 09/14/24 09/15/24 09/16/24 23:59 23:59 23:59 23:59 Intake Total 240 / 240 450 / 450 Output Total 2300 / 2300 Balance 240 / -1360 -1850 / -1850 Weight 270 lb 267 lb 4 oz Constitutional: Present mild distress Head: Present normocephalic and atraumatic ENT: Present normal exam, normal oropharynx and mucous membranes moist Neck: Present normal inspection and full ROM Respiratory: Present prolonged expiratory phase, respiratory distress, wheezes and able to speak in complete sentences Cardiac: Present S1/S2, Tachycardia and radial pulses present GI: Present soft and distention; Absent tenderness or guarding Rectal (female): Present deferred (female): Present deferred Skin: Present intact; Absent cyanosis or jaundice Neuro: Present alert, awake and oriented x 3 Extremities: Present normal inspection; Absent clubbing or cyanosis Psychiatric: Present normal affect and cooperative Meds Home Medications and Allergies Home Medications ?Medication ?Instructions ?Recorded ?Confirmed ?Type furosemide 40 mg tablet 40 mg PO DAILYP PRN Edema 07/24/22 09/16/24 History tirzepatide 5 mg/0.5 mL 5 mg SQ WEEKLY 07/24/22 09/15/24 History subcutaneous pen injector (Mounjaro) finerenone 20 mg tablet (Kerendia) 20 mg PO DAILY 09/08/24 09/15/24 History losartan 50 mg tablet 50 mg PO DAILY 09/08/24 09/15/24 History tizanidine 4 mg tablet 4 mg PO BIDP PRN Muscle Spasm 09/08/24 09/16/24 History tramadol 50 mg tablet 50 mg PO TID 09/08/24 09/15/24 History dextromethorphan IR 45 1 tab PO BID 09/15/24 09/16/24 History mg-bupropion ER 105 mg biphasic tablet (Auvelity) gabapentin 100 mg capsule 100 mg PO BID 09/15/24 09/15/24 History albuterol sulfate 90 mcg/actuation 2 puff inhalation QIDP PRN 09/16/24 09/16/24 History aerosol inhaler (Ventolin HFA) shortness of breath or wheezing New Prescriptions to Start Prescriptions: Allergies Allergy/AdvReac Type Severity Reaction Status Date / Time No Known Allergies Allergy Verified 09/12/24 17:24 Results Laboratory Findings 09/16/24 05:50 09/16/24 05:50 PT/INR, D-dimer PT 10.4 seconds (10.1-12.5) 09/15/24 13:30 INR 0.93 (0.9-1.1) 09/15/24 13:30 Abnormal lab findings: Abnormal Labs 09/15/24 09/15/24 09/16/24 13:30 14:47 05:50 MPV 10.6 H Neut % (Auto) 86.6 H Lymph % (Auto) 9.6 L [place] % (Auto) 1.5 L Eos % (Auto) 0.0 L Neut # (Auto) 8.0 H VBG pH 7.42 H VBG pCO2 27.4 L VBG HCO3 17.3 L VBG Total CO2 18.2 L VBG O2 Saturation 78.5 H VBG Base Excess -7.2 L Sodium 130 L 135 L Carbon Dioxide 18 L 18 L Anion Gap 17.4 H 17.6 H BUN 20 H 20 H Creatinine 2.10 H 1.80 H Estimated GFR 25 L 29 L Est GFR ( Amer) 30 L 36 L Glucose 129 H D Hemoglobin A1c 6.1 H Magnesium 2.4 H D AST 51 H 37 H D ALT 85 H Alkaline Phosphatase 459 H 396 H NT-Pro-B Natriuret Pep 835 H Globulin 3.4 H Cholesterol 211 H LDL Cholesterol Direct 97.54 L HDL Cholesterol 69 H Assessment and Plan *Assessment and plan (1) Pneumonia: Status: Acute Category: Medical Code(s): J18.9 - Pneumonia, unspecified organism (2) Asthma exacerbation: Status: Acute Category: Medical Code(s): J45.901 - Unspecified asthma with (acute) exacerbation Plan Ms. Stout is a 53-year-old female no significant smoking history, presentation family history of asthma, hypertension diabetes mellitus CKD presented with progressively worsening shortness of breath and pulmonary was called for further evaluation and management. Symptoms started 4 weeks ago with flulike symptoms and her entire family, rest of the family members improved however patient's symptoms continued to linger around and she had received 2 courses of doxycycline and ceftriaxone shots with no significant improvement in her symptoms eventually presented to the ER for further evaluation and management Afebrile. Hemodynamically stable. No evidence of leukocytosis. Blood gas upon admission hypocarbia with respiratory alkalosis. COVID-19 and flu PCR panel negative CT chest without contrast upon admission left lower lobe and lingular airspace disease. Currently receiving ceftriaxone azithromycin along with prednisone 40 mg daily. Plan: Trelegy 100 inhaler along with DuoNebs 4 times daily as needed Change antibiotics to levofloxacin to complete a total of 5-day course Follow up sputum Gram stain culture sensitivities. Sputum induction Prednisone 40 mg daily x 5 days # Thank you for involving pulmonary in this patient care. Will follow the patient in pulmonary clinic 1 to 2 weeks postdischarge
--- NOTE | 2024-09-16 12:08 | EXP.DC.SUM ---
General Admission date:: 09/15/24 HPI HPI HPI: Aleisha Stout is a 53-year-old female with a medical history significant for hypertension, type 2 diabetes, CKD stage IV who presents with 1 month onset of progressive shortness of breath. She states she began having increased work of breathing, wheezing, cough about a month ago at which point she was given a course of doxycycline and steroids. This mildly alleviated symptoms, but without resolution. Two weeks ago she got another round of doxycycline, again without resolution. Over the past 2 days, she has had a Rocephin shot with her PCP. Today, CXR was obtained by her PCP which showed left basilar pneumonia and patient continued to have increased work of breathing, diffuse wheezing at which point PCP advised patient to proceed to the ED. On arrival, vital signs were stable. However, she had significant bilateral wheezing and decreased air movement. She was given DuoNebs x 3, dexamethasone 10 mg, magnesium without improvement in symptoms. CT chest was obtained which showed multifocal left-sided pneumonia. On my evaluation of patient, she appeared uncomfortable and anxious. Continue to have significant moderate airway tightness with diffuse wheezing. On room air saturating 97% however. Gave option for patient to be discharged with antibiotics, steroids, nebs and Trelegy with close follow-up with pulmonology, or admission for treatment. Patient chose the latter. Case discussed with ED provider and decision was made to admit patient for reactive airway disease, multifocal pneumonia. Hospital Course Hospital Course Hospital Course: Aleisha Stout is a 53-year-old female with a medical history significant for hypertension, type 2 diabetes, CKD stage IV who presents with 1 month onset of progressive shortness of breath. She states she began having increased work of breathing, wheezing, cough about a month ago at which point she was given a course of doxycycline and steroids. This mildly alleviated symptoms, but without resolution. Two weeks ago she got another round of doxycycline, again without resolution. Over the past 2 days, she has had a Rocephin shot with her PCP. Today, CXR was obtained by her PCP which showed left basilar pneumonia and patient continued to have increased work of breathing, diffuse wheezing at which point PCP advised patient to proceed to the ED. On arrival, vital signs were stable. However, she had significant bilateral wheezing and decreased air movement. She was given DuoNebs x 3, dexamethasone 10 mg, magnesium without improvement in symptoms. CT chest was obtained which showed multifocal left-sided pneumonia. On my evaluation of patient, she appeared uncomfortable and anxious. Continue to have significant moderate airway tightness with diffuse wheezing. On room air saturating 97% however. Gave option for patient to be discharged with antibiotics, steroids, nebs and Trelegy with close follow-up with pulmonology, or admission for treatment. Patient chose the latter. Case discussed with ED provider and decision was made to admit patient for reactive airway disease, multifocal pneumonia. #Reactive airway disease exacerbation #Suspected adult onset asthma #Multifocal left-sided community-acquired pneumonia ? Progressive shortness of breath, wheezing for [address] chest shows multifocal left-sided pneumonia. Failed 3 rounds of antibiotics. WBC normal, no signs of sepsis. On room air but out of proportion to dyspnea at rest. ? Patient denies smoking/vaping history, new exposures, travel history. Does not recall having pneumonia ever. ? Clinically improved with DuoNebs, Pulmicort, steroids, ceftriaxone, azithromycin. Appropriate saturations on walk test. ? Pulmonology consulted, transitioned to Trelegy 100. ? Discharged with Trelegy 100, prednisone, levofloxacin. ? Pulmonology within 2 weeks. #Type 2 diabetes #CKD stage IV ? Hemoglobin A1c 6.1%. ? Creatinine 1.8, GFR 29. Stable. However, out of proportion to patient's age and recent A1c. ? Has not established with nephrology. Referred to Dr. Bryan on discharge. ? Continue finerenone, losartan for CKD. Started Farxiga 10 mg for the same. #Hypertension ? Continue losartan 50 mg. Total time spent on discharge: 35 minutes on chart review, counseling, documentation, and direct care with patient. Exam Data for Last 24 hours Vital signs and Labs for Last 24 Hours: Temp Pulse Resp BP Pulse Ox O2 Del Method 98.1 F 104 H 18 125/68 96 Room Air 09/16/24 08:00 09/16/24 08:00 09/16/24 08:00 09/16/24 08:00 09/16/24 08:00 09/16/24 11:00 Laboratory Results - last 24 hr 09/15/24 13:30: WBC 8.9, RBC 4.56, Hgb 13.9, Hct 40.0, MCV 87.7, MCH 30.5, MCHC 34.8, RDW 12.4, Plt Count 377, MPV 10.6 H, Neut % (Auto) 71.7, Lymph % (Auto) 17.7, [place] % (Auto) 6.1, Eos % (Auto) 3.1, Baso % (Auto) 0.6, Neut # (Auto) 6.4, Lymph # (Auto) 1.6, [place] # (Auto) 0.5, Eos # (Auto) 0.3, Baso # (Auto) 0.1, PT 10.4, INR 0.93, Sodium 130 L, Potassium 4.4, Chloride 99, Carbon Dioxide 18 L, Anion Gap 17.4 H, BUN 20 H, Creatinine 2.10 H, Estimated Creat Clear 30, Estimated GFR 25 L, Est GFR ( Amer) 30 L, Glucose 91, Hemoglobin A1c 6.1 H, Calcium 9.9, Magnesium 2.1, Total Bilirubin 0.6, AST 51 H, ALT 85 H, Alkaline Phosphatase 459 H, Troponin I < 0.01, NT-Pro-B Natriuret Pep 835 H, Total Protein 7.4, Albumin 4.0, Globulin 3.4 H, Albumin/Globulin Ratio 1.2, Procalcitonin 0.737 09/15/24 13:30: Procalcitonin 0.664 09/15/24 14:47: VBG pH 7.42 H, VBG pCO2 27.4 L, VBG pO2 40.0, VBG HCO3 17.3 L, VBG Total CO2 18.2 L, VBG O2 Saturation 78.5 H, VBG Base Excess -7.2 L, VBG Lactic Acid 1.9 09/15/24 14:53: Urine Color Yellow, Urine Appearance Clear, Urine pH 6.5, Ur Specific Conley <= 1.005, Urine Protein Negative, Urine Glucose (UA) 1+, Urine Ketones Trace, Urine Blood Negative, Urine Nitrate Negative, Urine Bilirubin Negative, Urine Urobilinogen 0.2, Ur Leukocyte Esterase Negative, Urine WBC 3-5, Ur Squamous Epith Cells 3-5, Urine Bacteria Trace 09/15/24 : SARS-CoV-2 (PCR) Not detected, Influenza A Untype (PCR) Not detected, Influenza Type B (PCR) Not detected 09/16/24 05:50: WBC 9.2, RBC 4.50, Hgb 13.2, Hct 39.7, MCV 88.2, MCH 29.3, MCHC 33.2, RDW 12.6, Plt Count 335, MPV 10.3, Neut % (Auto) 86.6 H, Lymph % (Auto) 9.6 L, [place] % (Auto) 1.5 L, Eos % (Auto) 0.0 L, Baso % (Auto) 0.2, Neut # (Auto) 8.0 H, Lymph # (Auto) 0.9, [place] # (Auto) 0.1, Eos # (Auto) 0.0, Baso # (Auto) 0.0, Sodium 135 L, Potassium 4.6, Chloride 104, Carbon Dioxide 18 L, Anion Gap 17.6 H, BUN 20 H, Creatinine 1.80 H, Estimated Creat Clear 34, Estimated GFR 29 L, Est GFR ( Amer) 36 L, Glucose 129 H D, Calcium 9.8, Magnesium 2.4 H D, Total Bilirubin 0.4, AST 37 H D, ALT 72, Alkaline Phosphatase 396 H, Total Protein 6.9, Albumin 3.8, Globulin 3.1, Albumin/Globulin Ratio 1.2, Triglycerides 65, Cholesterol 211 H, LDL Cholesterol Direct 97.54 L, VLDL Cholesterol 13, HDL Cholesterol 69 H, Cholesterol/HDL Ratio 3.1, Procalcitonin 0.434, TSH 0.70 I & O for Last 24 hours: Intake & Output 09/13/24 09/14/24 09/15/24 09/16/24 23:59 23:59 23:59 23:59 Intake Total 240 / 240 450 / 450 Output Total 2950 / 2950 Balance 240 / -1360 -2500 / -2500 Weight 122.47 kg 121.223 kg Constitutional Constitutional: no acute distress and obese *Routine HEENT Exam Head: Present normocephalic Eye: Present EOMI and PERRL ENT: Present mucous membranes moist *Routine Neck Exam Neck: Present supple; Absent lymphadenopathy *Routine Respiratory Exam Respiratory: Present wheezes; Absent CTA bilaterally *Routine Cardiovascular Exam Cardiovascular: Present RRR *Routine Abdominal Exam Abdominal: Present soft and normoactive bowel sounds; Absent tenderness *Routine Extremities Exam Extremities: Absent cyanosis, clubbing or edema *Routine Skin Exam Skin: Present warm; Absent rash *Routine Neurological Exam Neurological: Present alert and oriented X3 Results Data Completed and Pending Labs on day of discharge: Labs from last 24 hours 09/16/24 09/15/24 09/15/24 05:50 Unknown 14:53 WBC 9.2 RBC 4.50 Hgb 13.2 Hct 39.7 MCV 88.2 MCH 29.3 MCHC 33.2 RDW 12.6 Plt Count 335 MPV 10.3 Neut % (Auto) 86.6 H Lymph % (Auto) 9.6 L [place] % (Auto) 1.5 L Eos % (Auto) 0.0 L Baso % (Auto) 0.2 Neut # (Auto) 8.0 H Lymph # (Auto) 0.9 [place] # (Auto) 0.1 Eos # (Auto) 0.0 Baso # (Auto) 0.0 PT INR VBG pH VBG pCO2 VBG pO2 VBG HCO3 VBG Total CO2 VBG O2 Saturation VBG Base Excess VBG Lactic Acid Sodium 135 L Potassium 4.6 Chloride 104 Carbon Dioxide 18 L Anion Gap 17.6 H BUN 20 H Creatinine 1.80 H Estimated Creat Clear 34 Estimated GFR 29 L Est GFR ( Amer) 36 L Glucose 129 H D Hemoglobin A1c Calcium 9.8 Magnesium 2.4 H D Total Bilirubin 0.4 AST 37 H D ALT 72 Alkaline Phosphatase 396 H Troponin I NT-Pro-B Natriuret Pep Total Protein 6.9 Albumin 3.8 Globulin 3.1 Albumin/Globulin Ratio 1.2 Triglycerides 65 Cholesterol 211 H LDL Cholesterol Direct 97.54 L VLDL Cholesterol 13 HDL Cholesterol 69 H Cholesterol/HDL Ratio 3.1 Procalcitonin 0.434 TSH 0.70 Urine Color Yellow Urine Appearance Clear Urine pH 6.5 Ur Specific [place] <= 1.005 Urine Protein Negative Urine Glucose (UA) 1+ Urine Ketones Trace Urine Blood Negative Urine Nitrate Negative Urine Bilirubin Negative Urine Urobilinogen 0.2 Ur Leukocyte Esterase Negative Urine WBC 3-5 Ur Squamous Epith Cells 3-5 Urine Bacteria Trace SARS-CoV-2 (PCR) Not detected Influenza A Untype (PCR) Not detected Influenza Type B (PCR) Not detected 09/15/24 09/15/24 09/15/24 14:47 13:30 13:30 WBC 8.9 RBC 4.56 Hgb 13.9 Hct 40.0 MCV 87.7 MCH 30.5 MCHC 34.8 RDW 12.4 Plt Count 377 MPV 10.6 H Neut % (Auto) 71.7 Lymph % (Auto) 17.7 [place] % (Auto) 6.1 Eos % (Auto) 3.1 Baso % (Auto) 0.6 Neut # (Auto) 6.4 Lymph # (Auto) 1.6 [place] # (Auto) 0.5 Eos # (Auto) 0.3 Baso # (Auto) 0.1 PT 10.4 INR 0.93 VBG pH 7.42 H VBG pCO2 27.4 L VBG pO2 40.0 VBG HCO3 17.3 L VBG Total CO2 18.2 L VBG O2 Saturation 78.5 H VBG Base Excess -7.2 L VBG Lactic Acid 1.9 Sodium 130 L Potassium 4.4 Chloride 99 Carbon Dioxide 18 L Anion Gap 17.4 H BUN 20 H Creatinine 2.10 H Estimated Creat Clear 30 Estimated GFR 25 L Est GFR ( Amer) 30 L Glucose 91 Hemoglobin A1c 6.1 H Calcium 9.9 Magnesium 2.1 Total Bilirubin 0.6 AST 51 H ALT 85 H Alkaline Phosphatase 459 H Troponin I < 0.01 NT-Pro-B Natriuret Pep 835 H Total Protein 7.4 Albumin 4.0 Globulin 3.4 H Albumin/Globulin Ratio 1.2 Triglycerides Cholesterol LDL Cholesterol Direct VLDL Cholesterol HDL Cholesterol Cholesterol/HDL Ratio Procalcitonin 0.664 0.737 TSH Urine Color Urine Appearance Urine pH Ur Specific [place] Urine Protein Urine Glucose (UA) Urine Ketones Urine Blood Urine Nitrate Urine Bilirubin Urine Urobilinogen Ur Leukocyte Esterase Urine WBC Ur Squamous Epith Cells Urine Bacteria SARS-CoV-2 (PCR) Influenza A Untype (PCR) Influenza Type B (PCR) DS: Diagnosis Discharge Diagnosis (1) Pneumonia: Status: Acute Code(s): J18.9 - Pneumonia, unspecified organism (2) Asthma exacerbation: Status: Acute Code(s): J45.901 - Unspecified asthma with (acute) exacerbation Meds Home Medications and Allergies Home Medications ?Medication ?Instructions ?Recorded ?Confirmed ?Type furosemide 40 mg tablet 40 mg PO DAILYP PRN Edema 07/24/22 09/16/24 History tirzepatide 5 mg/0.5 mL 5 mg SQ WEEKLY 07/24/22 09/15/24 History subcutaneous pen injector (Mounjaro) finerenone 20 mg tablet (Kerendia) 20 mg PO DAILY 09/08/24 09/15/24 History losartan 50 mg tablet 50 mg PO DAILY 09/08/24 09/15/24 History tizanidine 4 mg tablet 4 mg PO BIDP PRN Muscle Spasm 09/08/24 09/16/24 History tramadol 50 mg tablet 50 mg PO TID 09/08/24 09/15/24 History dextromethorphan IR 45 1 tab PO BID 09/15/24 09/16/24 History mg-bupropion ER 105 mg biphasic tablet (Auvelity) gabapentin 100 mg capsule 100 mg PO BID 09/15/24 09/15/24 History albuterol sulfate 90 mcg/actuation 2 puff inhalation QIDP PRN 09/16/24 09/16/24 History aerosol inhaler (Ventolin HFA) shortness of breath or wheezing dapagliflozin propanediol 10 mg 10 mg PO DAILY #30 tabs 09/16/24 Rx tablet (Farxiga) fluticasone fur. 100 mcg-umeclid 1 inh inhalation DAILY 30 days #0 09/16/24 Rx 62.5 mcg-vilant 25 mcg ea inhalat.powder (Trelegy Ellipta) ipratropium 0.5 mg-albuterol 3 mg 3 ml inhalation Q6HP PRN Shortness 09/16/24 Rx (2.5 mg base)/3 mL nebulization Of Breath 30 days #180 mL soln levofloxacin 750 mg tablet 750 mg PO Q48H 4 days #3 tabs 09/16/24 Rx prednisone 20 mg tablet 40 mg (2 x 20 mg) PO DAILY 3 days 09/16/24 Rx #6 tabs New Prescriptions to Start Prescriptions: dapagliflozin propanediol [Farxiga] Gagandeep Balderas ipratropium-albuterol Sherire,Gagandeep levofloxacin Sherrie,Gagandeep prednisone Sherrie,Gagandeep Allergies Allergy/AdvReac Type Severity Reaction Status Date / Time No Known Allergies Allergy Verified 09/12/24 17:24 Discharge Plan Disposition Patient Disposition: Home, Self-Care Condition: Fair Follow up Plan Follow up with: Alli Bryan MD [Referring, Nephrology] - 2 weeks Charito Morgan MD [Physician, Pulmonology] - 10/08/24 1:00 pm Opal Michel APRN [Primary Care Provider, Medical] - 09/23/24 9:45 am Prescriptions/Medication Reconciliation: New ipratropium-albuterol 0.5 mg-3 mg(2.5 mg base)/3 mL Solution For Nebulization 3 ml inhalation Q6HP PRN (Reason: Shortness Of Breath) 30 Days Qty: 180 0RF prednisone 20 mg Tablet 40 mg PO DAILY 3 Days Qty: 6 0RF Trelegy Ellipta 100-62.5-25 mcg Blister With Device 1 inh inhalation DAILY 30 Days Qty: 0 0RF levofloxacin 750 mg tablet 750 mg PO Q48H 4 Days Qty: 3 0RF dapagliflozin propanediol [Farxiga] 10 mg tablet 10 mg PO DAILY Qty: 30 0RF Continued tizanidine 4 mg tablet 4 mg PO BIDP PRN (Reason: Muscle Spasm) furosemide 40 mg tablet 40 mg PO DAILYP PRN (Reason: Edema) Mounjaro 5 mg/0.5 mL pen injector 5 mg SQ WEEKLY Patient Comments: INJECT 0.5 ML (5mg) SUBCUTANEOUSLY ONCE a WEEK losartan 50 mg tablet 50 mg PO DAILY Patient Comments: TAKE ONE TABLET BY MOUTH EVERY DAY tramadol 50 mg tablet 50 mg PO TID Patient Comments: TAKE ONE TABLET BY MOUTH THREE TIMES DAILY FOR PAIN MAY CAUSE DROWSINESS Kerendia 20 mg tablet 20 mg PO DAILY Patient Comments: TAKE ONE TABLET BY MOUTH EVERY DAY Auvelity 45-105 mg Tablet, Ir And Er, Biphasic 1 tab PO BID gabapentin 100 mg capsule 100 mg PO BID Patient Comments: TAKE TWO CAPSULES BY MOUTH TWICE DAILY MAY CAUSE DROWSINESS albuterol sulfate [Ventolin HFA] 90 mcg/actuation HFA aerosol inhaler 2 puff inhalation QIDP PRN (Reason: shortness of breath or wheezing) Problem Reconciliation Problems Reviewed?: Yes Patient Discharge Instructions Patient Instructions: Asthma -- Adult, DI for Pneumonia -- Adult, Stop Light Pneumonia Print Language: Swazi Providers Primary Care Provider: Opal Michel Admit Provider: Gagandeep Balderas Attending Provider: Gagandeep Balderas
[2024-09-16] MEDS: FLUTICASONE/UMECLIDIN/VILANTER 100/62.5/25MCG INHALER 1 PUFF IH (13:41)
--- NOTE | 2024-09-18 10:24 | SW/DCPLANNER ---
Phoned patient x2. Left patient a message with name and call back number. Desiree Mcneill
--- NOTE | 2024-09-18 10:48 | SW/DCPLANNER ---
Spoke with patient on the phone. Patient stated that she is doing good. Patient stated that she is aware of her upcoming appointments. Patient stated that she was able to get her new medicine from clinic pharmacy and that they brought it to her room. Patient stated that she has no concerns or questions at this time. Desiree Mcneill
== END 2024-09-16 13:55 | disposition home or self-care (01) ==
LOC: ER 15:57 → 2ND 16:54
PROVIDERS: Nurse Practitioner Acute Care; Physician Assistant; Admitting Provider Student in an Organized Health Care Education/Training Program; Emergency Provider Student in an Organized Health Care Education/Training Program; PCP Nurse Practitioner Family; Visit Provider Student in an Organized Health Care Education/Training Program
DX: J45.901 Unspecified asthma with (acute) exacerbation (principal); J18.8 Other pneumonia, unspecified organism; E11.22 Type 2 diabetes mellitus with diabetic chronic kidney disease; I12.9 Hypertensive chronic kidney disease with stage 1 through stage 4 chronic kidney disease, or unspecified chronic kidney disease; Z79.85 Long-term (current) use of injectable non-insulin antidiabetic drugs; Z79.899 Other long term (current) drug therapy; N18.4 Chronic kidney disease, stage 4 (severe)
CPT/HCPCS: 96365; 96375; 0223U; 36415; 71250; 80053; 80061; 81001; 82803; 83036; 83735; 83880; 84145; 84443; 84484; 85025; 85610; 87040; 87633; 87636; 93005; 94640; G0378; J0456; J0696; J1100; J1650; J2250; J3475; J7050

== ENCOUNTER 2024-11-10 11:50 | Outpatient (CLI) | payer OTHER, SELFPAY ==
--- OUTSIDE RECORDS SUMMARY | 2024-11-10 11:52 | XMS_ITS | Clinical Summary ---
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 Name Role Phone Unavailable Primary Care Provider Unavailabl e Social History Tobacco Use Types Packs/Day Years Used Date Smoking Tobacco: Never Assessed Comments Unknown Sex and Gender Information Value Date Recorded Sex Assigned at Not on file Legal Sex Female 6:54 PM EDT Gender Identity Not on file Sexual Orientation Not on file Plan of Treatment Upcoming Encounters Date Type Department Care Team ([facility] st Contact Info) Description 11/19/2024 3:00 PM EDT [facility] [address] [facility], [address] [place] [address] Alli Bryan MD [address] [place] [phone] Health Maintenance Due Date Last Done Comments [facility]-Depression Screening 1970 [facility]-HIV Screening 1970 [facility]-Hepatitis C Screening 1970 [facility]-Infant/Child/Adol SDOH Screenings 1970 [facility]- SDOH Screenings 1988 [facility]-Adult SDOH Screenings 1988 [facility]-DTaP,Tdap,and Td Vaccine s (1 - Tdap) 1989 [facility]-Hepatitis B Vaccines (1 of 3 - 19+ 3-dose series) 1989 [facility]-Pap Smear 12/16/1991 [facility]-Cervical Cancer Screening 2000 [facility]-HPV/Cotest 2000 CT Colonography 12/16/2015 Colonoscopy 12/16/2015 FIT-DNA 12/16/2015 FIT 12/16/2015 FOBT 12/16/2015 Sigmoidoscopy 12/16/2015 [facility]-Colorectal Cancer Screening 12/16/2015 [facility]-Breast Cancer Screening 2020 [facility]-Pneumococcal Vaccine: 50 + Years (1 of 1 - PCV) 2020 [facility]-Zoster Vaccines (1 of 2) 2020 [id number] Vaccine (4 - season) 2023 03/06/2021, 06/06/2020, 05/09/2020 [facility]-Influenza Vaccine (#1) 11/24/202412/19, 03/10/2020 HPV Vaccines Aged Out No longer [...]
--- OUTSIDE RECORDS SUMMARY | 2024-11-10 11:52 | XMS_ITS | Encounter Summary ---
Author Organization Healthcare Address [address] [place] [address] Care Team Providers Care Daily Sales Audit Clerk Name Role Phone Unavailable Primary Care Provider Unavailabl e Reason for Referral * Consultation (Routine) - Authorized Specialty Diagnoses / Procedures Referred By Contac t Referred To Contact Nephrology Diagnoses Chronic kidney disease, stage IV (severe) (CMS/HCC) Opal Michel, METALLOGRAPHER [address] [address] Phone: tel: fax: [facility] [address] [facility] [address] [address] Phone: tel: Referral ID Status Reason Start Date Expiration Date Visits Requested Visits Authorized [id number] Authorized Specialty Services Required 06/28/2023 12/27/2024 1 1 Encounter Details Date Type Department Care Team (Late st Contact Info) Description 06/28/2023 [facility] [address] [place] [address] Opal Michel, METALLOGRAPHER [address] [address] Chronic kidney disease, stage IV (severe) (CMS/HCC) (Primary Dx) Social History Tobacco Use Types Packs/Day Years Used Date Smoking Tobacco: Never Assessed Comments Unknown Sex and Gender Information Value Date Recorded Sex Assigned at Not on file Legal Sex Female 6:54 PM EDT Gender Identity Not on file Sexual Orientation Not on file documented as of this encounter Plan of Treatment Upcoming Encounters Date Type Department Care Team (Late st Contact Info) Description 11/19/2024 3:00 PM EDT Office Visit [facility]ph[facility] Bone [facility] Mineral Metabolism [address] [facility], [address] [place] [address] Alli Bryan MD [address] [place] [address] Scheduled Referrals Name Type Priority Associated Diagnoses Order Schedule Ambulatory referral to Nephrology Outpatient Referral Routine Chronic kidney disease, stage IV (severe) (CMS/[facility]) Ordered: 06/28/2023 documented as of this encounter Visit Diagnoses Diagnosis Chronic kidney disease, stage IV (severe) (CMS/[facility])- Primary Chronic kidney disease, Stage IV (severe) documented in this encounter
[2024-11-10 12:52] LABS: Albumin Level 4.3 g/dl (3.5-5.0); Chloride 103 mmol/L (98-107); Potassium 4.5 mmoL/L (3.5-5.1); Sodium 135 mmol/L (136-145)
[2024-11-10 12:54] LABS: Blood Urea Nitrogen 25 mg/dl (7-17); Creatinine,Serum 1.70 mg/dl (0.52-1.04); Estimated Glomerular Filt Rate 31 ml/min (>60); GFR (African American) 38 ML/MIN (>60)
[2024-11-10 12:55] LABS: Alanine Aminotransferase 32 U/L (12-78); Albumin/Globulin Ratio 2.0 (1.1-1.8); Alkaline Phosphatase 159 U/L (38-126); Anion Gap 12.5 mEq/L (5-15); Aspartate Amino Transferase 32 U/L (14-36); Bilirubin,Total 0.4 mg/dl (0.2-1.3); Calcium 9.4 mg/dl (8.4-10.2); Carbon Dioxide 24 mmol/L (22.0-30.0); Globulin 2.2 g/dL (1.3-3.2); Glucose 73 mg/dl (74-100); Total Protein,Serum 6.5 g/dl (6.3-8.2)
[2024-11-10 16:06] LABS: Gamma Glutamyl Transpeptidase 173 U/L (12-43)
== END 2024-11-10 23:59 | disposition home or self-care (01) ==
LOC: LAB 11:50
PROVIDERS: PCP Family Medicine; Visit Provider Family Medicine
DX: N18.30 Chronic kidney disease, stage 3 unspecified (principal); R79.89 Other specified abnormal findings of blood chemistry
CPT/HCPCS: 36415; 80053; 82977

== ENCOUNTER 2024-11-14 13:21 | Outpatient (CLI) | payer OTHER, SELFPAY ==
--- NOTE | 2024-11-14 13:23 | XR_ITS ---
FINAL REPORT TECHNIQUE: Chest PA & Lateral CLINICAL HISTORY: Nonspecific cough COMPARISON: 12/21/2022 FINDINGS: 2 views of the chest were performed. The heart size is normal. The mediastinum is within normal limits. There is no acute cardiopulmonary process. There is scarring noted at the left base. There are no pleural effusions. There is no pneumothorax. The bony thorax appears intact. IMPRESSION: No acute cardiopulmonary process. Reviewed, Interpreted and Dictated by Alejandro Pearson MD Transcribed by Carly Lin Authenticated and . [facility]
--- OUTSIDE RECORDS SUMMARY | 2024-11-14 13:23 | XMS_ITS | Clinical Summary ---
Author Organization Healthcare Address [address] [place] [address] Care Team Providers Care Supervisor Incising Name Role Phone Unavailable Primary Care Provider Unavailabl e Social History Tobacco Use Types Packs/Day Years Used Date Smoking Tobacco: Never Assessed Comments Unknown Sex and Gender Information Value Date Recorded Sex Assigned at Not on file Legal Sex Female 6:54 PM EDT Gender Identity Not on file Sexual Orientation Not on file Plan of Treatment Upcoming Encounters Date Type Department Care Team ([facility] st Contact Info) Description 11/19/2024 3:00 PM EDT [facility] [address] [facility], [address] [place] [address] Alli Bryan MD [address] [place] [phone] Health Maintenance Due Date Last Done [...] 2020 [facility]-Zoster Vaccines (1 of 2) 2020 [id number] Vaccine (4 - season) 2023 03/06/2021, 06/06/2020, [...]
--- OUTSIDE RECORDS SUMMARY | 2024-11-14 13:23 | XMS_ITS | Encounter Summary ---
Author Organization Healthcare Address [address] [place] [place] [address] Care Team Providers Care Knitting Machine Mechanic Name Role Phone Unavailable Primary Care Provider Unavailabl e Reason for Referral * Consultation (Routine) - Authorized Specialty Diagnoses / Procedures Referred By Contac t Referred To Contact Nephrology Diagnoses Chronic kidney disease, stage IV (severe) (CMS/HCC) Opal Michel, TANK WELDER [address] [address] Phone: tel: fax: [facility] [address] [facility] [address], [place] [address] Phone: tel: Referral ID Status Reason Start Date Expiration Date Visits Requested Visits Authorized [id number] Authorized Specialty Services Required 06/28/2023 12/27/2024 1 1 Encounter Details Date Type Department Care Team (Late st Contact Info) Description 06/28/2023 [facility] [address] [place] [address] Opal Michel, TANK WELDER [address] [address] Chronic kidney disease, stage IV (severe) (CMS/HCC) [...] 11/19/2024 3:00 PM EDT Office Visit [facility] Nephrology, Bone & Mineral Metabolism [address] [facility], [address] [place] [address] Alli Bryan MD [address] [place] [address] Scheduled Referrals Name Type Priority Associated Diagnoses Order Schedule Ambulatory referral to Nephrology Outpatient Referral Routine Chronic kidney disease, stage IV (severe) (CMS/[facility]) Ordered: 06/28/2023 documented as of this encounter Visit Diagnoses Diagnosis Chronic kidney disease, stage IV (severe) (CMS/[facility])- Primary Chronic kidney disease, Stage IV (severe) documented in this encounter
[2024-11-14 13:32] LABS: Coronavirus 19, PCR Not Detected (NotDetected); Influenza A, PCR Not Detected (NotDetected); Influenza B, PCR Not Detected (NotDetected)
== END 2024-11-14 23:59 | disposition home or self-care (01) ==
LOC: LAB 13:22
PROVIDERS: PCP Family Medicine; Visit Provider Family Medicine
DX: J45.20 Mild intermittent asthma, uncomplicated (principal); R69 Illness, unspecified
CPT/HCPCS: 71046; 87636